=== PATIENT | female | born 1955 | race Caucasian/White ===

== ENCOUNTER 2018-05-14 15:51 | Inpatient (IN) | payer MEDICARE, OTHER ==
[2018-05-14] MEDS ORDERED: predniSONE 20 MG Tab PO STA (16:09)
[2018-05-14] MEDS ORDERED: Albuterol/Ipratropium 3.0-0.5 MG/3 ML Neb Soln NEB ONE (16:09)
--- NOTE | 2018-05-14 16:14 | EDM.PDOC ---
ED HPI GENERAL MEDICAL PROBLEM - General Chief Complaint: Respiratory Problem Stated Complaint: [facility] Time Seen by Provider: 05/14/18 15:51 Source of Information: Reports: Patient, RN History Limitations: Reports: No Limitations - History of Present Illness INITIAL COMMENTS - FREE TEXT/NARRATIVE: The patient states that she developed shortness of breath, particularly with exertion, this morning. She denies an associated cough or wheezing. No recent fever. No recent chest pain or palpitations, and no recent lower extremity edema. I'm told that EMS gave the patient a neb treatment. Here in the ED, the patient' s BP is found to be elevated at 178/131, with a HR of 131, and oxygen saturation of 84% on room air, up to 93% on 1.5 L per NC. The patient states that she has had similar symptoms many times in the past, but that she has not required medical treatment for it. She states that she has a history of COPD, and that she used to be under the care of a [employer], but she stopped seeing him 2 or 3 years ago, and has not received any pulmonary medications up until about one month ago, when her PCP started her on Anoro and albuterol by [facility]. The patient states that she is also on Chantix to try to quit smoking. The patient is not on home supplemental oxygen. The patient's PCP is Mel Haynes. The patient believes that her vaccinations are up-to-date, and she thinks that she received an influenza vaccine this season. - Related Data Allergies Allergy/AdvReac Type Severity Reaction Status Date / Time codeine Allergy Nausea Verified 06/11/15 11:24 Home Meds: Home Meds Acetaminophen [Tylenol Extra Strength] 500 mg PO Q6H PRN 06/11/15 [History] Hydrocodone/Acetaminophen [[place] 5-325 Tablet] 1 each PO Q6H PRN 06/11/15 [ History] Losartan [Cozaar] 50 mg PO DAILY 05/14/18 [History] Umeclidinium Brm/Vilanterol Tr [Anoro Ellipta 62.5-25 MCG] 1 inh PO DAILY [History] Varenicline Tartrate [Chantix] 1 mg PO BID 05/14/18 [History] Past Medical History Cardiovascular History: Reports: Hypertension Respiratory History: Reports: COPD (advanced) - Past Surgical History HEENT Surgical History: Reports: Naso-Sinus Surgery (turbinate surgery), Tonsillectomy Social & Family History - Tobacco Use Smoking Status *Q: Current Every Day Smoker Years of Tobacco use: 44 Packs/Tins Daily: 0.1 Packs/Tins Daily Comment: Down from 1.5 ppd - Alcohol Use Alcohol Use History: No - Recreational Drug Use Recreational Drug Use: No - Living Situation & Occupation Living situation: Reports: , with Spouse Occupation: Unemployed ED ROS GENERAL - Review of Systems Review Of Systems: ROS reveals no pertinent complaints other than HPI. ED EXAM, GENERAL - Physical Exam Exam: See Below Exam Limited By: No Limitations General Appearance: Alert, WD/WN, No Apparent Distress, Other (Tremulous) Eye Exam: Bilateral Eye: EOMI, Normal Inspection Ears: Normal External Exam, Hearing Grossly Normal Nose: Normal Inspection Throat/Mouth: Normal Inspection, Normal Lips, Normal Voice, No Airway Compromise Head: Atraumatic, Normocephalic Neck: Normal Inspection, Full Range of Motion Respiratory/Chest: No Respiratory Distress, No Accessory Muscle Use, Decreased Breath Sounds, Prolonged Expiration. No: Crackles, Rhonchi, Wheezing, Accessory Muscle Use Cardiovascular: Normal Peripheral Pulses, No Edema, No Gallop, No JVD, No Murmur , No Rub, Tachycardia (regular) Peripheral Pulses: 4+: Radial (L), Radial (R) GI/Abdominal: Normal Bowel Sounds, Soft, Non-Tender, No Organomegaly, No Distention, No Abnormal Bruit, No Mass (Female) Exam: Deferred Rectal (Female) Exam: Deferred Back Exam: Normal Inspection, Full Range of Motion, NT Extremities: Normal Inspection, Normal Range of Motion, No Pedal Edema, Normal Capillary Refill Neurological: Alert, Oriented, Normal Cognition, No Motor/Sensory Deficits Psychiatric: Normal Affect Skin Exam: Warm, Dry, Intact, Normal Color, No Rash EKG INTERPRETATION EKG Date: 05/14/18 Time: 16:47 Rhythm: Other (Sinus tachycardia with single PVC) Rate (Beats/Min): 118 [place]: Normal P-Wave: Enlarged (Biatrial) QRS: Normal ST-T: Normal QT: Normal Comparison: NA - No Prior EKG Course - Vital Signs Last Recorded V/S: Last Vital Signs Temp 36.7 C 03/18/19 15:57 Pulse 131 H 05/14/18 15:57 Resp 26 H 05/14/18 15:57 BP 178/131 H 05/14/18 15:57 Pulse Ox 91 L 05/14/18 17:42 - Orders/Labs/Meds Orders: Active Orders 24 hr Category Date Time Status EKG Documentation Completion [RC] STAT Care 05/14/18 16:05 Active RT Aerosol Therapy [RC] ASDIRECTED Care 05/14/18 16:09 Active RT Aerosol Therapy [RC] ASDIRECTED Care 05/14/18 17:42 Active RT Aerosol Therapy [RC] ASDIRECTED Care 05/14/18 18:16 Ordered Labs: Laboratory Tests 05/14/18 05/14/18 05/14/18 Range/Units 16:00 16:00 16:00 WBC 11.91 H (3.98-10.04) K/mm3 RBC 5.32 H (3.98-5.22) M/mm3 Hgb 15.1 (11.2-15.7) gm/L Hct 46.9 H (34.1-44.9) % MCV 88.2 (79.4-94.8) fl MCH 28.4 (25.6-32.2) pg MCHC 32.2 (32.2-35.5) g/dl RDW Std Deviation 43.3 (36.4-46.3) fL Plt Count 290 (182-369) K/mm3 MPV 8.7 L (9.4-12.3) fl Neutrophils % (Manual) 74 H (40-60) % Band Neutrophils % 1 (0-10) % Lymphocytes % (Manual) 17 L (20-40) % Atypical Lymphs % 0 % Monocytes % (Manual) 7 (2-10) % Eosinophils % (Manual) 1 (0.7-5.8) % Basophils % (Manual) 0 L (0.1-1.2) Platelet Estimate Adequate RBC Morph Comment Normal D-Dimer, Quantitative 0.29 (0.19-0.50) mg/L Puncture Site ABG pH (7.35-7.45) ABG pCO2 (35.0-45.0) mmHg ABG pO2 (80.0-100.0) mmHg ABG HCO3 (22.0-26.0) meq/L ABG O2 Saturation (96.0-97.0) % ABG Base Excess (-2-2.0) Gage Test O2 Delivery Device Oxygen Flow Rate FiO2 (21.00-100.00) % Sodium 138 (136-145) mEq/L Potassium 5.0 (3.5-5.1) mEq/L Chloride 101 (98-107) mEq/L Carbon Dioxide 30 (21-32) mEq/L Anion Gap 12.0 (5-15) BUN 18 (7-18) mg/dL Creatinine 0.7 (0.55-1.02) mg/dL Est Cr Clr Drug Dosing 90.11 mL/min Estimated GFR (MDRD) > 60 (>60) mL/min BUN/Creatinine Ratio 25.7 H (14-18) Glucose 131 H (80-115) mg/dL Calcium 9.2 (8.5-10.1) mg/dL Total Bilirubin 0.2 (0.2-1.0) mg/dL AST 18 (15-37) U/L ALT 28 (14-59) U/L Alkaline Phosphatase 92 (46-116) U/L Troponin I < 0.017 (0.00-0.056) ng/mL Total Protein 7.9 (6.4-8.2) g/dl Albumin 3.9 (3.4-5.0) g/dl Globulin 4.0 gm/dL Albumin/Globulin Ratio 1.0 (1-2) 05/14/ Range/Units 16:05 WBC (3.98-10.04) K/mm3 RBC (3.98-5.22) M/mm3 Hgb (11.2-15.7) gm/L Hct (34.1-44.9) % MCV (79.4-94.8) fl MCH (25.6-32.2) pg MCHC (32.2-35.5) g/dl RDW Std Deviation (36.4-46.3) fL Plt Count (182-369) K/mm3 MPV (9.4-12.3) fl Neutrophils % (Manual) (40-60) % Band Neutrophils % (0-10) % Lymphocytes % (Manual) (20-40) % Atypical Lymphs % % Monocytes % (Manual) (2-10) % Eosinophils % (Manual) (0.7-5.8) % Basophils % (Manual) (0.1-1.2) Platelet Estimate RBC Morph Comment D-Dimer, Quantitative (0.19-0.50) mg/L Puncture Site Rt radial ABG pH 7.31 L (7.35-7.45) ABG pCO2 62.0 H (35.0-45.0) mmHg ABG pO2 62.0 L (80.0-100.0) mmHg ABG HCO3 29.9 H (22.0-26.0) meq/L ABG O2 Saturation 86.0 L (96.0-97.0) % ABG Base Excess 2.3 H (-2-2.0) Gage Test Positive O2 Delivery Device Nasal cannula Oxygen Flow Rate 1.5 FiO2 0.00 L (21.00-100.00) % Sodium (136-145) mEq/L Potassium (3.5-5.1) mEq/L Chloride (98-107) mEq/L Carbon Dioxide (21-32) mEq/L Anion Gap (5-15) BUN (7-18) mg/dL Creatinine (0.55-1.02) mg/dL Est Cr Clr Drug Dosing mL/min Estimated GFR (MDRD) (>60) mL/min BUN/Creatinine Ratio (14-18) Glucose (80-115) mg/dL Calcium (8.5-10.1) mg/dL Total Bilirubin (0.2-1.0) mg/dL AST (15-37) U/L ALT (14-59) U/L Alkaline Phosphatase (46-116) U/L Troponin I (0.00-0.056) ng/mL Total Protein (6.4-8.2) g/dl Albumin (3.4-5.0) g/dl Globulin gm/dL Albumin/Globulin Ratio (1-2) Meds: Medications Discontinued Medications Generic Name Dose Route Start Last Admin Trade Name Freq PRN Reason Stop Dose Admin Albuterol 2.5 mg 05/14/18 17:42 05/14/18 17:48 Proventil Neb Soln NEB 05/14/18 17:43 2.5 mg ONETIME ONE Administration Albuterol 2.5 mg 05/14/18 18:16 Proventil Neb Soln NEB 05/14/18 18:17 ONETIME ONE Albuterol/Ipratropium 3 ml 05/14/18 16:09 05/14/18 16:43 Duoneb 3.0-0.5 Mg/3 Ml NEB 05/14/18 16:10 3 ml ONETIME ONE Administration Prednisone 60 mg 05/14/18 16:09 05/14/18 17:20 Prednisone PO 05/14/18 16:10 60 mg ONETIME STA Administration - Re-Assessments/Exams Free Text/Narrative Re-Assessment/Exam: 05/14/18 16:08 The patient is likely suffering from a COPD exacerbation, and her tachycardia is likely related to the neb treatment that she received per EMS, however, want to be certain that the patient does not have pneumonia or a PE. I have ordered a workup. In the meantime, the patient will receive a DuoNeb and oral prednisone. 05/14/18 16:28 2-view chest radiograph reviewed. The cardiac silhouette is within normal limits. No pulmonary vascular congestion. No pleural effusions. No focal infiltrate. No pneumothorax. There is hyperinflation and bilateral diaphragmatic flattening, consistent with COPD. Formal read per the Radiologist pending. 05/14/18 17:28 The patient's ABG reveals an acute on chronic respiratory acidosis, with hypoxemia. This strongly supports the diagnosis of a COPD exacerbation. 05/14/18 17:33 The patient was reexamined. Her lungs sound somewhat better, although she still has very distant breath sounds. She states that she feels fairly well while seated on the gurney, but she does not know how well she will do if she exerts herself. I have therefore asked the nurse to ambulate the patient a short distance, to see how well the patient does. 05/14/18 17:41 The patient's oxygen saturation was 91% on room air, however, it dropped to 78% with short distance ambulation. I will order an albuterol neb, however, if the patient does not have substantial improvement soon, she will need admission to the hospital. 05/14/18 18:10 I reexamined the patient. She is moving air better than she was, however, when I turned her supplemental oxygen off her oxygen saturation dropped to 88% on room air. I will order a repeat albuterol neb, but the patient will need to be admitted. Paging Dr. Go. 05/14/18 18:[address] Go at 18:12. He agreed to admit the patient. Departure - Departure Time of Disposition: 18:15 Disposition: Admitted As Inpatient 66 Condition: Fair Clinical Impression: COPD exacerbation, Hypoxemia - Discharge Information *PRESCRIPTION DRUG MONITORING PROGRAM REVIEWED*: Not Applicable *COPY OF PRESCRIPTION DRUG MONITORING REPORT IN PATIENT MICHELLE: Not Applicable Referrals: Mel Haynes MD [Primary Care Provider] - - My Orders Last 24 Hours: My Active Orders 05/14/18 16:05 EKG Documentation Completion [RC] STAT 05/14/18 16:09 RT Aerosol Therapy [RC] ASDIRECTED 05/14/18 17:42 RT Aerosol Therapy [RC] ASDIRECTED 05/14/18 18:16 RT Aerosol Therapy [RC] ASDIRECTED - Assessment/Plan Last 24 Hours: My Active Orders 05/14/18 16:05 EKG Documentation Completion [RC] STAT 05/14/18 16:09 RT Aerosol Therapy [RC] ASDIRECTED 05/14/18 17:42 RT Aerosol Therapy [RC] ASDIRECTED 05/14/18 18:16 RT Aerosol Therapy [RC] ASDIRECTED
--- NOTE | 2018-05-14 16:41 | CR ---
Chest: Two views of the chest were obtained. Comparison: Prior chest x-ray of . Lungs are hyperinflated compatible with emphysematous change. Lungs show no acute parenchymal change. Heart size and mediastinum are normal. Bony structures are within normal limits for the patient's age. Impression: 1. Emphysematous change. Nothing acute is appreciated on two-view chest x-ray. Diagnostic code #2
[2018-05-14] MEDS ORDERED: Albuterol 0.083% 2.5 MG/3 ML Neb Soln NEB ONE ×2 (17:42→18:16)
[2018-05-14] MEDS ORDERED: Acetaminophen 325 MG Tab PO PRN (20:43)
[2018-05-14] MEDS ORDERED: Bisacodyl 5 MG Tab PO PRN (20:43)
[2018-05-14] MEDS ORDERED: Docusate Sodium 100 MG Cap PO PRN (20:43)
[2018-05-14] MEDS ORDERED: Ondansetron 4 MG Tab.DIS PO PRN (20:43)
[2018-05-14] MEDS ORDERED: Albuterol 0.083% 2.5 MG/3 ML Neb Soln NEB PRN (20:50)
--- NOTE | 2018-05-14 20:59 | PCM.HP ---
H&P History of Present Illness - General Date of Service: 05/14/18 Admit Problem/Dx: Admission Diagnosis/Problem Admission Diagnosis/Problem COPD exacerbation - History of Present Illness Initial Comments - Free Text/Narative: This 62-year-old female with known COPD and emphysema presented to the emergency room via ambulance after developing worsening breathing, dyspnea on exertion, and shortness of breath. She states that about mid morning she started developing worsening breathing and noticed that she was having more difficulty walking. As the day progressed her symptoms worsened and patient became concerned and called her . They agree that she would call EMS and when patient was seen by the EMS her pulse ox was in the low to mid 80s. In the emergency room initial pulse ox was 84% and she was given albuterol and prednisone. On one and a half liters of FiO2 via nasal cannula her pulse ox increased to 91%, but she still dropped into the 80s with ambulation. Without oxygen her pulse ox drops into the 70s and her pulse increasing to the 120s. Patient denies any chest pain, palpitations, has a mild headache, weight loss, lower extremity swelling. She has had a 9 pound weight gain over the last 6 months. She started Chantix 3 months ago and she has been eating more since then. She is on triple therapy for her COPD and does have a nebulizer at home. In the emergency room patient had a d-dimer that was negative. Chest x-ray showed no acute infiltrate with emphysematous changes. Patient maintained tachycardia in the emergency room and it was felt it was secondary to albuterol and increased effort when she ambulated off oxygen. - Related Data Allergies/Adverse Reactions: Allergies Allergy/AdvReac Type Severity Reaction Status Date / Time codeine Allergy Nausea Verified 05/14/18 19:14 Home Medications: Home Meds Acetaminophen [Tylenol Extra Strength] 500 mg PO Q6H PRN 06/11/15 [History] Hydrocodone/Acetaminophen [[place] 5-325 Tablet] 1 each PO Q6H PRN 06/11/15 [ History] Losartan [Cozaar] 50 mg PO DAILY 05/14/18 [History] Umeclidinium Brm/Vilanterol Tr [Anoro Ellipta 62.5-25 MCG] 1 inh PO DAILY [History] Varenicline Tartrate [Chantix] 1 mg PO BID 05/14/18 [History] Past Medical History Cardiovascular History: Reports: Hypertension Respiratory History: Reports: COPD (advanced) - Past Surgical History HEENT Surgical History: Reports: Naso-Sinus Surgery (turbinate surgery), Tonsillectomy Social & Family History - Tobacco Use Smoking Status *Q: Current Every Day Smoker Years of Tobacco use: 44 Packs/Tins Daily: 0.1 Second Hand Smoke Exposure: Yes - Caffeine Use Caffeine Use: Reports: Coffee - Recreational Drug Use Recreational Drug Use: No - Living Situation & Occupation Living situation: Reports: , with Spouse Occupation: Unemployed H&P Review of Systems - Review of Systems: Review Of Systems: See Below General: Reports: Fatigue. Denies: Night Sweats, Diaphoresis HEENT: Reports: No Symptoms Pulmonary: Reports: Shortness of Breath, Cough Cardiovascular: Reports: Dyspnea on Exertion. Denies: Orthopnea, PND, Edema Gastrointestinal: Reports: No Symptoms. Denies: Abdominal Pain, Black Stool, Bloody Stool Genitourinary: Reports: No Symptoms Musculoskeletal: Reports: No Symptoms Skin: Reports: No Symptoms Psychiatric: Reports: No Symptoms. Denies: Confusion, Depression Neurological: Reports: Headache. Denies: Confusion, Dizziness Exam - Exam Exam: See Below - Vital Signs Vital Signs: Last Vital Signs Temp 98.1 F 05/14/18 15:57 Pulse 131 H 05/14/18 15:57 Resp 26 H 05/14/18 15:57 BP 178/131 H 05/14/18 15:57 Pulse Ox 94 L 05/14/18 18:16 Weight: 1563 lb - Exam Quality Assessment: Supplemental Oxygen General: Alert, Oriented, Mild Distress HEENT: Conjunctiva Clear, Mucosa Moist & [place], Posterior Pharynx Clear Neck: Supple, Trachea Midline Lungs: Decreased Breath Sounds Cardiovascular: Regular Rhythm, Tachycardia GI/Abdominal Exam: Normal Bowel Sounds, Soft, Non-Tender, No Organomegaly, No Distention, No Abnormal Bruit Extremities: Normal Inspection, Normal Range of Motion, No Pedal Edema, Normal Capillary Refill Peripheral Pulses: 2+: Posterior Tibial (L), Posterior Tibial (R), Dorsalis Pedis (L), Dorsalis Pedis (R) Skin: Warm, Dry, Intact Neurological: Cranial Nerves Intact Neuro Extensive - Mental Status: Alert, Oriented x3, Normal Mood/Affect, Normal Cognition, Memory Intact Neuro Extensive - Motor, Sensory, Reflexes: Normal Gait Psychiatric: Alert, Normal Affect, Normal Mood - Patient Data Lab Results Last 24 hrs: Laboratory Results - last 24 hr 05/14/18 05/14/18 05/14/18 Range/Units 16:00 16:00 16:00 WBC 11.91 H (3.98-10.04) K/mm3 RBC 5.32 H (3.98-5.22) M/mm3 Hgb 15.1 (11.2-15.7) gm/L Hct 46.9 H (34.1-44.9) % MCV 88.2 (79.4-94.8) fl MCH 28.4 (25.6-32.2) pg MCHC 32.2 (32.2-35.5) g/dl RDW Std Deviation 43.3 (36.4-46.3) fL Plt Count 290 (182-369) K/mm3 MPV 8.7 L (9.4-12.3) fl Neutrophils % (Manual) 74 H (40-60) % Band Neutrophils % 1 (0-10) % Lymphocytes % (Manual) 17 L (20-40) % Atypical Lymphs % 0 % Monocytes % (Manual) 7 (2-10) % Eosinophils % (Manual) 1 (0.7-5.8) % Basophils % (Manual) 0 L (0.1-1.2) Platelet Estimate Adequate RBC Morph Comment Normal D-Dimer, Quantitative 0.29 (0.19-0.50) mg/L Puncture Site ABG pH (7.35-7.45) ABG pCO2 (35.0-45.0) mmHg ABG pO2 (80.0-100.0) mmHg ABG HCO3 (22.0-26.0) meq/L ABG O2 Saturation (96.0-97.0) % ABG Base Excess (-2-2.0) Gage Test O2 Delivery Device Oxygen Flow Rate FiO2 (21.00-100.00) % Sodium 138 (136-145) mEq/L Potassium 5.0 (3.5-5.1) mEq/L Chloride 101 (98-107) mEq/L Carbon Dioxide 30 (21-32) mEq/L Anion Gap 12.0 (5-15) BUN 18 (7-18) mg/dL Creatinine 0.7 (0.55-1.02) mg/dL Est Cr Clr Drug Dosing 90.11 mL/min Estimated GFR (MDRD) > 60 (>60) mL/min BUN/Creatinine Ratio 25.7 H (14-18) Glucose 131 H (80-115) mg/dL Calcium 9.2 (8.5-10.1) mg/dL Total Bilirubin 0.2 (0.2-1.0) mg/dL AST 18 (15-37) U/L ALT 28 (14-59) U/L Alkaline Phosphatase 92 (46-116) U/L Troponin I < 0.017 (0.00-0.056) ng/mL Total Protein 7.9 (6.4-8.2) g/dl Albumin 3.9 (3.4-5.0) g/dl Globulin 4.0 gm/dL Albumin/Globulin Ratio 1.0 (1-2) /18/19 Range/Units 16:05 WBC (3.98-10.04) K/mm3 RBC (3.98-5.22) M/mm3 Hgb (11.2-15.7) gm/L Hct (34.1-44.9) % MCV (79.4-94.8) fl MCH (25.6-32.2) pg MCHC (32.2-35.5) g/dl RDW Std Deviation (36.4-46.3) fL Plt Count (182-369) K/mm3 MPV (9.4-12.3) fl Neutrophils % (Manual) (40-60) % Band Neutrophils % (0-10) % Lymphocytes % (Manual) (20-40) % Atypical Lymphs % % Monocytes % (Manual) (2-10) % Eosinophils % (Manual) (0.7-5.8) % Basophils % (Manual) (0.1-1.2) Platelet Estimate RBC Morph Comment D-Dimer, Quantitative (0.19-0.50) mg/L Puncture Site Rt radial ABG pH 7.31 L (7.35-7.45) ABG pCO2 62.0 H (35.0-45.0) mmHg ABG pO2 62.0 L (80.0-100.0) mmHg ABG HCO3 29.9 H (22.0-26.0) meq/L ABG O2 Saturation 86.0 L (96.0-97.0) % ABG Base Excess 2.3 H (-2-2.0) Gage Test Positive O2 Delivery Device Nasal cannula Oxygen Flow Rate 1.5 FiO2 0.00 L (21.00-100.00) % Sodium (136-145) mEq/L Potassium (3.5-5.1) mEq/L Chloride (98-107) mEq/L Carbon Dioxide (21-32) mEq/L Anion Gap (5-15) BUN (7-18) mg/dL Creatinine (0.55-1.02) mg/dL Est Cr Clr Drug Dosing mL/min Estimated GFR (MDRD) (>60) mL/min BUN/Creatinine Ratio (14-18) Glucose (80-115) mg/dL Calcium (8.5-10.1) mg/dL Total Bilirubin (0.2-1.0) mg/dL AST (15-37) U/L ALT (14-59) U/L Alkaline Phosphatase (46-116) U/L Troponin I (0.00-0.056) ng/mL Total Protein (6.4-8.2) g/dl Albumin (3.4-5.0) g/dl Globulin gm/dL Albumin/Globulin Ratio (1-2) Result Diagrams: 05/14/18 16:00 05/14/18 16:00 EKG INTERPRETATION EKG Date: 05/14/18 Rhythm: NSR Rate (Beats/Min): 118 (Sinus tachycardia) [place]: Normal P-Wave: Enlarged (Biatrial) Comparison: NA - No Prior EKG - Problem List (1) HTN (hypertension) SNOMED Code(s): 46382510 ICD Code: I10 - ESSENTIAL (PRIMARY) HYPERTENSION Status: Acute Current Visit: Yes (2) Tachycardia SNOMED Code(s): 0975397 ICD Code: R00.0 - TACHYCARDIA, UNSPECIFIED Status: Acute Current Visit: Yes (3) COPD exacerbation SNOMED Code(s): 050776080 ICD Code: J44.1 - CHRONIC OBSTRUCTIVE PULMONARY DISEASE W (ACUTE) EXACERBATION Status: Acute Current Visit: Yes (4) Hypoxemia SNOMED Code(s): 099470813 ICD Code: R09.02 - HYPOXEMIA Status: Acute Current Visit: Yes Problem List Initiated/Reviewed/Updated: Yes Orders Last 24hrs: Active Orders 24 hr Category Date Time Status Patient Status [ADT] Routine ADT 05/14/18 20:43 Ordered Bedrest Bathroom Privileges [RC] ASDIRECTED Care 05/14/18 20:43 Ordered EKG Documentation Completion [RC] STAT Care 05/14/18 16:05 Active Height and Weight [RC] DAILY Care 05/14/18 20:43 Ordered Intake and Output [RC] QSHIFT Care 05/14/18 20:45 Ordered Oxygen Therapy [RC] PRN Care 05/14/18 20:43 Ordered Pulse Oximetry [RC] CONTINUOUS Care 05/14/18 20:43 Ordered RT Aerosol Therapy [RC] ASDIRECTED Care 05/14/18 16:09 Active RT Aerosol Therapy [RC] ASDIRECTED Care 05/14/18 17:42 Active RT Aerosol Therapy [RC] ASDIRECTED Care 05/14/18 18:16 Active RT Aerosol Therapy [RC] ASDIRECTED Care 05/14/18 20:50 Ordered VTE/DVT Education [RC] PER UNIT ROUTINE Care 05/14/18 20:43 Ordered Vital Signs [RC] Q4H Care 05/14/18 20:43 Ordered Respiratory Care Assess and Treatment [CONS] Routine Cons 05/14/18 20:43 Ordered Regular Diet [DIET] Diet 05/15/18 Breakfast Ordered C-REACTIVE PROTEIN [CHEM] AM Lab 05/15/18 05:11 Ordered CBC WITH AUTO DIFF [HEME] AM Lab 05/15/18 05:11 Ordered COMPREHENSIVE METABOLIC PN,CMP [CHEM] AM Lab 05/15/18 05:11 Ordered CULTURE BLOOD [BC] Stat Lab 05/14/18 20:48 Ordered CULTURE BLOOD [BC] Stat Lab 05/14/18 20:48 Ordered CULTURE SPUTUM + SMEAR [RM] Stat Lab 05/14/18 20:43 Ordered MAGNESIUM [CHEM] AM Lab 05/15/18 05:11 Ordered Acetaminophen [Tylenol] Med 05/14/18 20:43 Ordered 650 mg PO Q4H PRN Albuterol [Proventil Neb Soln] Med 05/14/18 20:50 Ordered 2.5 mg NEB Q2H PRN Albuterol/Ipratropium [DuoNeb 3.0-0.5 MG/3 ML] Med 05/14/18 21:00 Ordered 3 ml NEB Q6HRRT Bisacodyl [Dulcolax] Med 05/14/18 20:43 Ordered 5 mg PO DAILY PRN Docusate Sodium [Colace] Med 05/14/18 20:43 Ordered 100 mg PO BID PRN Enoxaparin [Lovenox] Med 05/15/18 09:00 Ordered 40 mg SUBCUT DAILY Losartan Med 05/15/18 09:00 Ordered 50 mg PO DAILY Ondansetron [Zofran ODT] Med 05/14/18 20:43 Ordered 4 mg PO Q6H PRN Sodium Chloride 0.9% @ 125 MLS/HR (1000ml) Med 05/14/18 20:45 Ordered Sodium Chloride 0.9% [Normal Saline] 1,000 ml IV ASDIRECTED Varenicline Tartrate [Chantix] Med 05/14/18 21:00 Ordered 1 mg PO BID cefTRIAXone [Rocephin] Med 05/14/18 21:00 Ordered 1 gm IVPUSH Q24H predniSONE Med 05/15/18 16:00 Ordered 40 mg PO WITHBREAKFAST Blood Culture x2 Reflex Set [OM.PC] Stat Oth 05/14/18 20:43 Ordered Resuscitation Status Routine Resus Stat 05/14/18 20:43 Ordered Medication Orders Acetaminophen (Tylenol) 650 mg PO Q4H PRN PRN Reason: Pain (Mild 1-3)/fever Albuterol (Proventil Neb Soln) 2.5 mg NEB Q2H PRN PRN Reason: Dyspnea Albuterol/Ipratropium (Duoneb 3.0-0.5 Mg/3 Ml) 3 ml NEB Q6HRRT [place] Bisacodyl (Dulcolax) 5 mg PO DAILY PRN PRN Reason: Constipation Ceftriaxone Sodium (Rocephin) 1 gm IVPUSH Q24H [place] Docusate Sodium (Colace) 100 mg PO BID PRN PRN Reason: Constipation Enoxaparin Sodium (Lovenox) 40 mg SUBCUT DAILY [place] Sodium Chloride (Normal Saline) 1,000 mls @ 125 mls/hr IV ASDIRECTED [facility] Non-Formulary Medication (Varenicline Tartrate [Chantix]) 1 mg PO BID [facility] Non-Formulary Medication (Losartan) 50 mg PO DAILY [place] Ondansetron HCl (Zofran Odt) 4 mg PO Q6H PRN PRN Reason: nausea, able to take PO Prednisone (Prednisone) 40 mg PO WITHBREAKFAST [facility] Assessment/Plan Comment:: COPD exacerbation with hypoxia - The patient in patient's status. - Start albuterol/ipratropium bromide 4 times a day. - Albuterol nebs every 2 hours when necessary. - Continue oral prednisone 40 mg daily. - Titrate FiO2 to keep pulse ox above 92% - ABG is consistent with acute on chronic respiratory acidosis with partial compensation - Rocephin 1 g daily. - Blood cultures and sputum cultures. Tachycardia - Likely secondary to demand and albuterol. - Monitor on telemetry. Hypertension - Restart home meds in a.m. VTE prophylaxis with Lovenox
[2018-05-14] MEDS ORDERED: cefTRIAXone 2 GM Vial IVPUSH SCH (21:00)
[2018-05-14] MEDS: Albuterol/Ipratropium 3.0-0.5 MG/3 ML Neb Soln NEB SCH (21:59)
[2018-05-14] MEDS: Sodium Chloride 0.9% 1,000 ML IV SCH (22:15)
[2018-05-14] MEDS: cefTRIAXone 1 GM in Sodium Chloride 0.9% 100 ML IV SCH (22:16)
[2018-05-14] MEDS ORDERED: Metoprolol Tartrate 5 MG/5 ML SDV IVPUSH PRN (23:35)
[2018-05-15] MEDS: Albuterol/Ipratropium 3.0-0.5 MG/3 ML Neb Soln NEB SCH ×4 (03:19→20:59)
[2018-05-15] MEDS ORDERED: Benzocaine/Cetylpyridinium/Menthol Lozenge MUCMEM PRN (03:57)
[2018-05-15] MEDS: Sodium Chloride 0.9% 1,000 ML IV SCH (06:02)
[2018-05-15] MEDS ORDERED: Magnesium Sulfate/Water 4 GM in Premix Bag 1 BAG IV ONE (08:52)
[2018-05-15] MEDS ORDERED: Sodium Chloride 0.9% 10 ML Syringe FLUSH PRN (08:52)
[2018-05-15] MEDS ORDERED: Losartan 25 MG Tab PO SCH (09:00)
[2018-05-15] MEDS: Enoxaparin 40 MG/0.4 ML Syringe SUBCUT SCH (09:31)
[2018-05-15] MEDS: Aspirin 81 MG Tab.Chew PO SCH (09:31)
[2018-05-15] MEDS: Varenicline Tartrate [Chantix] 1 MG PO SCH ×3 (09:49→21:14)
[2018-05-15] MEDS: Losartan 25 MG Tab PO SCH (10:25)
[2018-05-15] MEDS ORDERED: Benzonatate 100 MG Cap PO PRN (14:08)
--- NOTE | 2018-05-15 14:18 | PCM.PN ---
- General Info Date of Service: 05/15/18 Admission Dx/Problem (Free Text): Admission Diagnosis/Problem Admission Diagnosis/Problem COPD exacerbation Subjective Update: Patient states that she is feeling much better than she was when she came in. She is less short of breath. Patient does state that she has had episodes of palpitations in the past. Nurse reports 2 runs of V. tach today one being 6 beats. Patient denies any previous syncopal episodes or dizziness. She was afebrile overnight. - Review of Systems General: Reports: No Symptoms HEENT: Reports: No Symptoms Pulmonary: Reports: Shortness of Breath, Cough Cardiovascular: Reports: No Symptoms Gastrointestinal: Reports: No Symptoms. Denies: Abdominal Pain Genitourinary: Reports: No Symptoms Neurological: Reports: No Symptoms Psychiatric: Reports: No Symptoms - Patient Data Vitals - Most Recent: Last Vital Signs Temp 99.1 F 05/15/18 13:54 Pulse 89 05/15/18 13:50 Resp 18 05/15/18 13:50 BP 159/83 H 05/15/18 13:54 Pulse Ox 98 05/15/18 13:50 Weight - Most Recent: 153 lb 1.6 oz I&O - Last 24 Hours: Intake & Output 05/14/18 05/15/18 05/15/18 22:59 06:59 14:59 Intake Total 1769 180 Output Total 700 Balance 1069 180 Lab Results Last 24 Hours: Laboratory Results - last 24 hr 05/14/18 05/14/18 05/14/18 Range/Units 16:00 16:00 16:00 WBC 11.91 H (3.98-10.04) K/mm3 RBC 5.32 H (3.98-5.22) M/mm3 Hgb 15.1 (11.2-15.7) gm/L Hct 46.9 H (34.1-44.9) % MCV 88.2 (79.4-94.8) fl MCH 28.4 (25.6-32.2) pg MCHC 32.2 (32.2-35.5) g/dl RDW Std Deviation 43.3 (36.4-46.3) fL Plt Count 290 (182-369) K/mm3 MPV 8.7 L (9.4-12.3) fl Neut % (Auto) (34.0-71.1) % Lymph % (Auto) (19.3-51.7) % Mcleod % (Auto) (4.7-12.5) % Eos % (Auto) (0.7-5.8) Baso % (Auto) (0.1-1.2) % Neut # (Auto) (1.56-6.13) K/mm3 Lymph # (Auto) (1.18-3.74) K/mm3 Mcleod # (Auto) (0.24-0.36) K/mm3 Eos # (Auto) (0.04-0.36) K/mm3 Baso # (Auto) (0.01-0.08) K/mm3 Neutrophils % (Manual) 74 H (40-60) % Band Neutrophils % 1 (0-10) % Lymphocytes % (Manual) 17 L (20-40) % Atypical Lymphs % 0 % Monocytes % (Manual) 7 (2-10) % Eosinophils % (Manual) 1 (0.7-5.8) % Basophils % (Manual) 0 L (0.1-1.2) Manual Slide Review Platelet Estimate Adequate RBC Morph Comment Normal D-Dimer, Quantitative 0.29 (0.19-0.50) mg/L Puncture Site ABG pH (7.35-7.45) ABG pCO2 (35.0-45.0) mmHg ABG pO2 (80.0-100.0) mmHg ABG HCO3 (22.0-26.0) meq/L ABG O2 Saturation (96.0-97.0) % ABG Base Excess (-2-2.0) Gage Test O2 Delivery Device Oxygen Flow Rate FiO2 (21.00-100.00) % Sodium 138 (136-145) mEq/L Potassium 5.0 (3.5-5.1) mEq/L Chloride 101 (98-107) mEq/L Carbon Dioxide 30 (21-32) mEq/L Anion Gap 12.0 (5-15) BUN 18 (7-18) mg/dL Creatinine 0.7 (0.55-1.02) mg/dL Est Cr Clr Drug Dosing 90.11 mL/min Estimated GFR (MDRD) > 60 (>60) mL/min BUN/Creatinine Ratio 25.7 H (14-18) Glucose 131 H (80-115) mg/dL Calcium 9.2 (8.5-10.1) mg/dL Phosphorus (2.6-4.7) mg/dL Magnesium (1.8-2.4) mg/dl Total Bilirubin 0.2 (0.2-1.0) mg/dL AST 18 (15-37) U/L ALT 28 (14-59) U/L Alkaline Phosphatase 92 (46-116) U/L Troponin I < 0.017 (0.00-0.056) ng/mL C-Reactive Protein (<1.0) mg/dL Total Protein 7.9 (6.4-8.2) g/dl Albumin 3.9 (3.4-5.0) g/dl Globulin 4.0 gm/dL Albumin/Globulin Ratio 1.0 (1-2) Free T4 (0.76-1.46) ng/dL TSH 3rd Generation (0.358-3.74) uIU/mL 05/14/18 05/15/18 05/15/18 Range/Units 16:05 04:50 04:50 WBC 11.03 H (3.98-10.04) K/mm3 RBC 4.93 (3.98-5.22) M/mm3 Hgb 14.1 (11.2-15.7) gm/L Hct 43.3 (34.1-44.9) % MCV 87.8 (79.4-94.8) fl MCH 28.6 (25.6-32.2) pg MCHC 32.6 (32.2-35.5) g/dl RDW Std Deviation 43.7 (36.4-46.3) fL Plt Count 271 (182-369) K/mm3 MPV 8.9 L (9.4-12.3) fl Neut % (Auto) 84.6 H (34.0-71.1) % Lymph % (Auto) 9.2 L (19.3-51.7) % Mcleod % (Auto) 5.8 (4.7-12.5) % Eos % (Auto) 0 L (0.7-5.8) Baso % (Auto) 0.3 (0.1-1.2) % Neut # (Auto) 9.34 H (1.56-6.13) K/mm3 Lymph # (Auto) 1.01 L (1.18-3.74) K/mm3 Mcleod # (Auto) 0.64 H (0.24-0.36) K/mm3 Eos # (Auto) 0.00 L (0.04-0.36) K/mm3 Baso # (Auto) 0.03 (0.01-0.08) K/mm3 Neutrophils % (Manual) (40-60) % Band Neutrophils % (0-10) % Lymphocytes % (Manual) (20-40) % Atypical Lymphs % % Monocytes % (Manual) (2-10) % Eosinophils % (Manual) (0.7-5.8) % Basophils % (Manual) (0.1-1.2) Manual Slide Review Normal smear Platelet Estimate RBC Morph Comment D-Dimer, Quantitative (0.19-0.50) mg/L Puncture Site Rt radial ABG pH 7.31 L (7.35-7.45) ABG pCO2 62.0 H (35.0-45.0) mmHg ABG pO2 62.0 L (80.0-100.0) mmHg ABG HCO3 29.9 H (22.0-26.0) meq/L ABG O2 Saturation 86.0 L (96.0-97.0) % ABG Base Excess 2.3 H (-2-2.0) Gage Test Positive O2 Delivery Device Nasal cannula Oxygen Flow Rate 1.5 FiO2 0.00 L (21.00-100.00) % Sodium 138 (136-145) mEq/L Potassium 4.3 (3.5-5.1) mEq/L Chloride 100 (98-107) mEq/L Carbon Dioxide 30 (21-32) mEq/L Anion Gap 12.3 (5-15) BUN 12 (7-18) mg/dL Creatinine 0.7 (0.55-1.02) mg/dL Est Cr Clr Drug Dosing 90.11 mL/min Estimated GFR (MDRD) > 60 (>60) mL/min BUN/Creatinine Ratio 17.1 (14-18) Glucose 128 H (80-115) mg/dL Calcium 9.6 (8.5-10.1) mg/dL Phosphorus (2.6-4.7) mg/dL Magnesium 1.7 L (1.8-2.4) mg/dl Total Bilirubin 0.3 (0.2-1.0) mg/dL AST 16 (15-37) U/L ALT 23 (14-59) U/L Alkaline Phosphatase 65 (46-116) U/L Troponin I (0.00-0.056) ng/mL C-Reactive Protein 0.5 (<1.0) mg/dL Total Protein 7.3 (6.4-8.2) g/dl Albumin 3.6 (3.4-5.0) g/dl Globulin 3.7 gm/dL Albumin/Globulin Ratio 1.0 (1-2) Free T4 (0.76-1.46) ng/dL TSH 3rd Generation (0.358-3.74) uIU/mL 05/15/18 05/15/18 05/15/18 Range/Units 04:50 04:50 04:50 WBC (3.98-10.04) K/mm3 RBC (3.98-5.22) M/mm3 Hgb (11.2-15.7) gm/L Hct (34.1-44.9) % MCV (79.4-94.8) fl MCH (25.6-32.2) pg MCHC (32.2-35.5) g/dl RDW Std Deviation (36.4-46.3) fL Plt Count (182-369) K/mm3 MPV (9.4-12.3) fl Neut % (Auto) (34.0-71.1) % Lymph % (Auto) (19.3-51.7) % Mcleod % (Auto) (4.7-12.5) % Eos % (Auto) (0.7-5.8) Baso % (Auto) (0.1-1.2) % Neut # (Auto) (1.56-6.13) K/mm3 Lymph # (Auto) (1.18-3.74) K/mm3 Mcleod # (Auto) (0.24-0.36) K/mm3 Eos # (Auto) (0.04-0.36) K/mm3 Baso # (Auto) (0.01-0.08) K/mm3 Neutrophils % (Manual) (40-60) % Band Neutrophils % (0-10) % Lymphocytes % (Manual) (20-40) % Atypical Lymphs % % Monocytes % (Manual) (2-10) % Eosinophils % (Manual) (0.7-5.8) % Basophils % (Manual) (0.1-1.2) Manual Slide Review Platelet Estimate RBC Morph Comment D-Dimer, Quantitative (0.19-0.50) mg/L Puncture Site ABG pH (7.35-7.45) ABG pCO2 (35.0-45.0) mmHg ABG pO2 (80.0-100.0) mmHg ABG HCO3 (22.0-26.0) meq/L ABG O2 Saturation (96.0-97.0) % ABG Base Excess (-2-2.0) Gage Test O2 Delivery Device Oxygen Flow Rate FiO2 (21.00-100.00) % Sodium (136-145) mEq/L Potassium (3.5-5.1) mEq/L Chloride (98-107) mEq/L Carbon Dioxide (21-32) mEq/L Anion Gap (5-15) BUN (7-18) mg/dL Creatinine (0.55-1.02) mg/dL Est Cr Clr Drug Dosing mL/min Estimated GFR (MDRD) (>60) mL/min BUN/Creatinine Ratio (14-18) Glucose (80-115) mg/dL Calcium (8.5-10.1) mg/dL Phosphorus 3.9 (2.6-4.7) mg/dL Magnesium (1.8-2.4) mg/dl Total Bilirubin (0.2-1.0) mg/dL AST (15-37) U/L ALT (14-59) U/L Alkaline Phosphatase (46-116) U/L Troponin I (0.00-0.056) ng/mL C-Reactive Protein (<1.0) mg/dL Total Protein (6.4-8.2) g/dl Albumin (3.4-5.0) g/dl Globulin gm/dL Albumin/Globulin Ratio (1-2) Free T4 1.20 (0.76-1.46) ng/dL TSH 3rd Generation 0.320 L (0.358-3.74) uIU/mL [facility] Results Last 24 Hours: Microbiology 05/15/18 09:30 Gram Stain - Final Sputum - Expectorated Med Orders - Current: Current Medications Acetaminophen (Tylenol) 650 mg PO Q4H PRN PRN Reason: Pain (Mild 1-3)/fever Albuterol (Proventil Neb Soln) 2.5 mg NEB Q2H PRN PRN Reason: Dyspnea Albuterol/Ipratropium (Duoneb 3.0-0.5 Mg/3 Ml) 3 ml NEB Q6HRRT [facility] Last Admin: 05/15/18 14:05 Dose: 3 ml Aspirin (Aspirin) 81 mg PO DAILY [facility] Last Admin: 05/15/18 09:31 Dose: 81 mg Benzocaine/Menthol (Cepacol Sore Throat) 1 lozenge MUCMEM Q2HR PRN PRN Reason: Sore Throat Last Admin: 05/15/18 04:30 Dose: 1 lozenge Benzonatate (Tessalon Perles) 200 mg PO TID PRN PRN Reason: Cough Bisacodyl (Dulcolax) 5 mg PO DAILY PRN PRN Reason: Constipation Docusate Sodium (Colace) 100 mg PO BID PRN PRN Reason: Constipation Enoxaparin Sodium (Lovenox) 40 mg SUBCUT DAILY [facility] Last Admin: 05/15/18 09:31 Dose: 40 mg Guaifenesin (Mucinex) 600 mg PO BID [facility] Ceftriaxone Sodium 1 gm/ (Sodium Chloride) 100 mls @ 200 mls/hr IV Q24H [facility] Last Admin: 05/14/18 22:16 Dose: 200 mls/hr Losartan Potassium (Cozaar) 25 mg PO DAILY [facility] Last Admin: 05/15/18 10:25 Dose: 25 mg Metoprolol Tartrate (Lopressor) 5 mg IVPUSH Q4H PRN PRN Reason: Tachycardia Ondansetron HCl (Zofran Odt) 4 mg PO Q6H PRN PRN Reason: nausea, able to take PO Varenicline Tartrate ([Chantix] 1 Mg) 0 each PO BID [facility] Last Admin: 05/15/18 09:49 Dose: Not Given Prednisone (Prednisone) 40 mg PO WITHBREAKFAST [facility] Prednisone (Prednisone) 40 mg PO WITHBREAKFAST [facility] Sodium Chloride (Saline Flush) 10 ml FLUSH ASDIRECTED PRN PRN Reason: Keep Vein Open Discontinued Medications Albuterol (Proventil Neb Soln) 2.5 mg NEB ONETIME ONE Stop: 05/14/18 17:43 Last Admin: 05/14/18 17:48 Dose: 2.5 mg Albuterol (Proventil Neb Soln) 2.5 mg NEB ONETIME ONE Stop: 05/14/18 18:17 Last Admin: 05/14/18 18:50 Dose: 2.5 mg Albuterol/Ipratropium (Duoneb 3.0-0.5 Mg/3 Ml) 3 ml NEB ONETIME ONE Stop: 05/14/18 16:10 Last Admin: 05/14/18 16:43 Dose: 3 ml Ceftriaxone Sodium (Rocephin) 1 gm IVPUSH Q24H [facility] Last Admin: 05/14/18 22:36 Dose: Not Given Sodium Chloride (Normal Saline) 1,000 mls @ 125 mls/hr IV ASDIRECTED [facility] Last Admin: 05/15/18 06:02 Dose: 125 mls/hr Magnesium Sulfate 4 gm/ Premix 100 mls @ 25 mls/hr IV ONETIME ONE Stop: 05/15/18 08:53 Last Admin: 05/15/18 09:30 Dose: 25 mls/hr Losartan Potassium (Cozaar) 50 mg PO DAILY [facility] Last Admin: 05/15/18 14:02 Dose: Not Given Prednisone (Prednisone) 60 mg PO ONETIME STA Stop: 05/14/18 16:10 Last Admin: 05/14/18 17:20 Dose: 60 mg - Exam Quality Assessment: Supplemental Oxygen General: Alert, Oriented, No Acute Distress HEENT: Pupils Equal Neck: Supple Lungs: Wheezing. No: Normal Respiratory Effort Cardiovascular: Regular Rhythm, Tachycardia GI/Abdominal Exam: Normal Bowel Sounds, Soft, No Distention, No Abnormal Bruit Back Exam: Normal Inspection Extremities: Normal Inspection, No Pedal Edema - Problem List & Annotations (1) HTN (hypertension) SNOMED Code(s): 26972433 Code(s): I10 - ESSENTIAL (PRIMARY) HYPERTENSION Status: Acute Current Visit: Yes (2) Tachycardia SNOMED Code(s): 4832732 Code(s): R00.0 - TACHYCARDIA, UNSPECIFIED Status: Acute Current Visit: Yes (3) COPD exacerbation SNOMED Code(s): 787918380 Code(s): J44.1 - CHRONIC OBSTRUCTIVE PULMONARY DISEASE W (ACUTE) EXACERBATION Status: Acute Current Visit: Yes (4) Hypoxemia SNOMED Code(s): 325381356 Code(s): R09.02 - HYPOXEMIA Status: Acute Current Visit: Yes - Problem List Review Problem List Initiated/Reviewed/Updated: Yes - My Orders Last 24 Hours: My Active Orders 05/14/18 20:43 Patient Status [ADT] Routine Bedrest Bathroom Privileges [RC] ASDIRECTED Height and Weight [RC] 04 Oxygen Therapy [RC] PRN Pulse Oximetry [RC] CONTINUOUS VTE/DVT Education [RC] PER UNIT ROUTINE Vital Signs [RC] Q4HR Respiratory Care Assess and Treatment [CONS] Routine Acetaminophen [Tylenol] 650 mg PO Q4H PRN Bisacodyl [Dulcolax] 5 mg PO DAILY PRN Docusate Sodium [Colace] 100 mg PO BID PRN Ondansetron [Zofran ODT] 4 mg PO Q6H PRN Blood Culture x2 Reflex Set [OM.PC] Stat Resuscitation Status Routine 05/14/18 20:45 Intake and Output [RC] 04,16 05/14/18 20:50 RT Aerosol Therapy [RC] ASDIRECTED Albuterol [Proventil Neb Soln] 2.5 mg NEB Q2H PRN 05/14/18 21:00 Albuterol/Ipratropium [DuoNeb 3.0-0.5 MG/3 ML] 3 ml NEB Q6HRRT Patient's Own Medication [Ptom] 0 each PO BID 05/14/18 21:10 CULTURE BLOOD [BC] Stat 05/14/18 21:20 CULTURE BLOOD [BC] Stat 05/14/18 21:30 cefTRIAXone [Rocephin] 1 gm Sodium Chloride 0.9% [Normal Saline] 100 ml IV Q24H 05/14/18 23:35 Metoprolol Tartrate [Lopressor] 5 mg IVPUSH Q4H PRN 05/15/18 03:57 Benzocaine/Cetylpyrd/Menthol [Cepacol Sore Throat] 1 lozenge MUCMEM Q2HR PRN 05/15/18 04:50 FREE T3 [REF] Routine 05/15/18 08:52 Sodium Chloride 0.9% [Saline Flush] 10 ml FLUSH ASDIRECTED PRN Convert IV to Saline Lock [OM.PC] Routine 05/15/18 09:00 Aspirin 81 mg PO DAILY Enoxaparin [Lovenox] 40 mg SUBCUT DAILY 05/15/18 09:30 CULTURE SPUTUM + SMEAR [] Stat 05/15/18 10:00 Losartan [Cozaar] 25 mg PO DAILY 05/15/18 11:49 Echo Comp wo Cont [US] Routine 05/15/18 14:08 Benzonatate [Tessalon Perles] 200 mg PO TID PRN 05/15/18 14:15 guaiFENesin [Mucinex] 600 mg PO BID 05/15/18 16:00 predniSONE 40 mg PO WITHBREAKFAST 05/15/18 Breakfast Regular Diet [DIET] 05/16/18 05:11 PHOSPHORUS [CHEM] AM 05/16/18 07:00 predniSONE 40 mg PO WITHBREAKFAST - Plan Plan:: COPD exacerbation with hypoxia - Continue albuterol/ipratropium bromide 4 times a day. - Albuterol nebs every 2 hours when necessary. - Continue oral prednisone 40 mg daily. - Titrate FiO2 to keep pulse ox above 92% - Rocephin 1 g daily. - Blood cultures and sputum cultures. Tachycardia - Likely secondary to demand and albuterol. - Monitor on telemetry. - TSH was slightly low so we will get a free T3 and free T4. Free T4 was normal at 1.2 and free T3 is pending. - Echocardiogram - 2 episodes of V. tach 1 running 6 beats. This is likely due to hypoxia and electrolyte disorder with lower magnesium. Hypomagnesemia - 4 g IV magnesium and recheck magnesium level in the morning. Hypertension - Restart home meds losartan 25 mg daily VTE prophylaxis with Lovenox
[2018-05-15] MEDS: guaiFENesin 600 MG Tab.ER PO SCH ×2 (16:36→20:42)
[2018-05-15] MEDS: predniSONE 20 MG Tab PO SCH (16:36)
[2018-05-15] MEDS ORDERED: Temazepam 15 MG Cap PO PRN (17:34)
[2018-05-15] MEDS: cefTRIAXone 1 GM in Sodium Chloride 0.9% 100 ML IV SCH (20:42)
[2018-05-16] MEDS: Albuterol/Ipratropium 3.0-0.5 MG/3 ML Neb Soln NEB SCH ×4 (02:15→21:55)
[2018-05-16] MEDS: predniSONE 20 MG Tab PO SCH (06:08)
[2018-05-16] MEDS ORDERED: predniSONE 20 MG Tab PO SCH (07:00)
--- NOTE | 2018-05-16 09:28 | PCM.PN ---
- General Info Date of Service: 05/16/18 Admission Dx/Problem (Free Text): Admission Diagnosis/Problem Admission Diagnosis/Problem COPD exacerbation Subjective Update: May 16, 2018 Patient continues to improve. She is less short of breath, but still oxygen dependent. Patient continues with a productive cough. No episodes of ventricular tachycardia overnight were reported. May 15, 2018 Patient states that she is feeling much better than she was when she came in. She is less short of breath. Patient does state that she has had episodes of palpitations in the past. Nurse reports 2 runs of V. tach today one being 6 beats. Patient denies any previous syncopal episodes or dizziness. She was afebrile overnight. - Review of Systems General: Reports: No Symptoms. Denies: Fever HEENT: Reports: No Symptoms. Denies: Sore Throat Pulmonary: Reports: Shortness of Breath, Cough Cardiovascular: Reports: No Symptoms. Denies: Chest Pain, Palpitations Gastrointestinal: Reports: No Symptoms. Denies: Abdominal Pain Neurological: Reports: No Symptoms Psychiatric: Reports: No Symptoms - Patient Data Vitals - Most Recent: Last Vital Signs Temp 98.1 F 05/16/18 03:14 Pulse 89 05/16/18 03:14 Resp 20 05/16/18 03:14 BP 132/80 05/16/18 03:14 Pulse Ox 90 L 05/16/18 08:38 Weight - Most Recent: 151 lb 4.8 oz I&O - Last 24 Hours: Intake & Output 05/15/18 05/16/18 05/16/18 22:59 06:59 14:59 Intake Total 1518 1100 Output Total 2150 2200 Balance -632 -1100 Lab Results Last 24 Hours: Laboratory Results - last 24 hr 05/15/18 05/15/18 05/15/18 Range/Units 04:50 04:50 04:50 WBC (3.98-10.04) K/mm3 RBC (3.98-5.22) M/mm3 Hgb (11.2-15.7) gm/L Hct (34.1-44.9) % MCV (79.4-94.8) fl MCH (25.6-32.2) pg MCHC (32.2-35.5) g/dl RDW Std Deviation (36.4-46.3) fL Plt Count (182-369) K/mm3 MPV (9.4-12.3) fl Neut % (Auto) (34.0-71.1) % Lymph % (Auto) (19.3-51.7) % Bowie % (Auto) (4.7-12.5) % Eos % (Auto) (0.7-5.8) Baso % (Auto) (0.1-1.2) % Neut # (Auto) (1.56-6.13) K/mm3 Lymph # (Auto) (1.18-3.74) K/mm3 Bowie # (Auto) (0.24-0.36) K/mm3 Eos # (Auto) (0.04-0.36) K/mm3 Baso # (Auto) (0.01-0.08) K/mm3 Sodium (136-145) mEq/L Potassium (3.5-5.1) mEq/L Chloride (98-107) mEq/L Carbon Dioxide (21-32) mEq/L Anion Gap (5-15) BUN (7-18) mg/dL Creatinine (0.55-1.02) mg/dL Est Cr Clr Drug Dosing mL/min Estimated GFR (MDRD) (>60) mL/min BUN/Creatinine Ratio (14-18) Glucose (80-115) mg/dL Calcium (8.5-10.1) mg/dL Phosphorus 3.9 (2.6-4.7) mg/dL Magnesium (1.8-2.4) mg/dl Total Bilirubin (0.2-1.0) mg/dL AST (15-37) U/L ALT (14-59) U/L Alkaline Phosphatase (46-116) U/L Total Protein (6.4-8.2) g/dl Albumin (3.4-5.0) g/dl Globulin gm/dL Albumin/Globulin Ratio (1-2) Free T4 (0.76-1.46) ng/dL Free T3 pg/mL 2.89 (2.50-3.90) pg/mL TSH 3rd Generation 0.320 L (0.358-3.74) uIU/mL 05/15/18 05/16/18 05/16/18 Range/Units 04:50 05:40 05:40 WBC 9.44 (3.98-10.04) K/mm3 RBC 4.87 (3.98-5.22) M/mm3 Hgb 13.8 (11.2-15.7) gm/L Hct 43.4 (34.1-44.9) % MCV 89.1 (79.4-94.8) fl MCH 28.3 (25.6-32.2) pg MCHC 31.8 L (32.2-35.5) g/dl RDW Std Deviation 44.2 (36.4-46.3) fL Plt Count 260 (182-369) K/mm3 MPV 8.7 L (9.4-12.3) fl Neut % (Auto) 71.8 H (34.0-71.1) % Lymph % (Auto) 16.7 L (19.3-51.7) % Bowie % (Auto) 10.5 (4.7-12.5) % Eos % (Auto) 0.2 L (0.7-5.8) Baso % (Auto) 0.6 (0.1-1.2) % Neut # (Auto) 6.77 H (1.56-6.13) K/mm3 Lymph # (Auto) 1.58 (1.18-3.74) K/mm3 Bowie # (Auto) 0.99 H (0.24-0.36) K/mm3 Eos # (Auto) 0.02 L (0.04-0.36) K/mm3 Baso # (Auto) 0.06 (0.01-0.08) K/mm3 Sodium (136-145) mEq/L Potassium (3.5-5.1) mEq/L Chloride (98-107) mEq/L Carbon Dioxide (21-32) mEq/L Anion Gap (5-15) BUN (7-18) mg/dL Creatinine (0.55-1.02) mg/dL Est Cr Clr Drug Dosing mL/min Estimated GFR (MDRD) (>60) mL/min BUN/Creatinine Ratio (14-18) Glucose (80-115) mg/dL Calcium (8.5-10.1) mg/dL Phosphorus 3.7 (2.6-4.7) mg/dL Magnesium (1.8-2.4) mg/dl Total Bilirubin (0.2-1.0) mg/dL AST (15-37) U/L ALT (14-59) U/L Alkaline Phosphatase (46-116) U/L Total Protein (6.4-8.2) g/dl Albumin (3.4-5.0) g/dl Globulin gm/dL Albumin/Globulin Ratio (1-2) Free T4 1.20 (0.76-1.46) ng/dL Free T3 pg/mL (2.50-3.90) pg/mL TSH 3rd Generation (0.358-3.74) uIU/mL 05/16/18 Range/Units 05:40 WBC (3.98-10.04) K/mm3 RBC (3.98-5.22) M/mm3 Hgb (11.2-15.7) gm/L Hct (34.1-44.9) % MCV (79.4-94.8) fl MCH (25.6-32.2) pg MCHC (32.2-35.5) g/dl RDW Std Deviation (36.4-46.3) fL Plt Count (182-369) K/mm3 MPV (9.4-12.3) fl Neut % (Auto) (34.0-71.1) % Lymph % (Auto) (19.3-51.7) % Bowie % (Auto) (4.7-12.5) % Eos % (Auto) (0.7-5.8) Baso % (Auto) (0.1-1.2) % Neut # (Auto) (1.56-6.13) K/mm3 Lymph # (Auto) (1.18-3.74) K/mm3 Bowie # (Auto) (0.24-0.36) K/mm3 Eos # (Auto) (0.04-0.36) K/mm3 Baso # (Auto) (0.01-0.08) K/mm3 Sodium 140 (136-145) mEq/L Potassium 5.0 (3.5-5.1) mEq/L Chloride 101 (98-107) mEq/L Carbon Dioxide 31 (21-32) mEq/L Anion Gap 13.0 (5-15) BUN 12 (7-18) mg/dL Creatinine 0.7 (0.55-1.02) mg/dL Est Cr Clr Drug Dosing 90.11 mL/min Estimated GFR (MDRD) > 60 (>60) mL/min BUN/Creatinine Ratio 17.1 (14-18) Glucose 91 (80-115) mg/dL Calcium 9.3 (8.5-10.1) mg/dL Phosphorus (2.6-4.7) mg/dL Magnesium 2.1 (1.8-2.4) mg/dl Total Bilirubin 0.3 (0.2-1.0) mg/dL AST 19 (15-37) U/L ALT 25 (14-59) U/L Alkaline Phosphatase 62 (46-116) U/L Total Protein 7.1 (6.4-8.2) g/dl Albumin 3.4 (3.4-5.0) g/dl Globulin 3.7 gm/dL Albumin/Globulin Ratio 0.9 L (1-2) Free T4 (0.76-1.46) ng/dL Free T3 pg/mL (2.50-3.90) pg/mL TSH 3rd Generation (0.358-3.74) uIU/mL Velasquez Results Last 24 Hours: Microbiology 05/14/18 21:20 Aerobic Blood Culture - Preliminary Blood - Venous - Lab Draw NO GROWTH AFTER 1 DAY Anaerobic Blood Culture - Preliminary NO GROWTH AFTER 1 DAY 05/14/18 21:10 Aerobic Blood Culture - Preliminary Blood - Venous NO GROWTH AFTER 1 DAY Anaerobic Blood Culture - Preliminary NO GROWTH AFTER 1 DAY 05/15/18 09:30 Gram Stain - Final Sputum - Expectorated Med Orders - Current: Current Medications Acetaminophen (Tylenol) 650 mg PO Q4H PRN PRN Reason: Pain (Mild 1-3)/fever Albuterol (Proventil Neb Soln) 2.5 mg NEB Q2H PRN PRN Reason: Dyspnea Albuterol/Ipratropium (Duoneb 3.0-0.5 Mg/3 Ml) 3 ml NEB Q6HRRT PENDING SALE TO [facility] Last Admin: 05/16/18 08:38 Dose: 3 ml Aspirin (Aspirin) 81 mg PO DAILY [facility] Last Admin: 05/15/18 09:31 Dose: 81 mg Benzocaine/Menthol (Cepacol Sore Throat) 1 lozenge MUCMEM Q2HR PRN PRN Reason: Sore Throat Last Admin: 05/15/18 04:30 Dose: 1 lozenge Benzonatate (Tessalon Perles) 200 mg PO TID PRN PRN Reason: Cough Bisacodyl (Dulcolax) 5 mg PO DAILY PRN PRN Reason: Constipation Docusate Sodium (Colace) 100 mg PO BID PRN PRN Reason: Constipation Enoxaparin Sodium (Lovenox) 40 mg SUBCUT DAILY [facility] Last Admin: 05/15/18 09:31 Dose: 40 mg Guaifenesin (Mucinex) 600 mg PO BID [facility] Last Admin: 05/15/18 20:42 Dose: 600 mg Ceftriaxone Sodium 1 gm/ (Sodium Chloride) 100 mls @ 200 mls/hr IV Q24H PENDING [facility] TO [facility] Last Admin: 05/15/18 20:42 Dose: 200 mls/hr Losartan Potassium (Cozaar) 25 mg PO DAILY [facility] Last Admin: 05/15/18 10:25 Dose: 25 mg Metoprolol Tartrate (Lopressor) 5 mg IVPUSH Q4H PRN PRN Reason: Tachycardia Ondansetron HCl (Zofran Odt) 4 mg PO Q6H PRN PRN Reason: nausea, able to take PO Varenicline Tartrate ([Chantix] 1 Mg) 0 each PO BID [facility] Last Admin: 05/15/18 21:14 Dose: Not Given Prednisone (Prednisone) 40 mg PO WITHBREAKFAST [facility] Last Admin: 05/16/18 06:08 Dose: 40 mg Sodium Chloride (Saline Flush) 10 ml FLUSH ASDIRECTED PRN PRN Reason: Keep Vein Open Temazepam (Restoril) 15 mg PO BEDTIME PRN PRN Reason: Sleep Last Admin: 05/15/18 20:40 Dose: 15 mg Discontinued Medications Albuterol (Proventil Neb Soln) 2.5 mg NEB ONETIME ONE Stop: 05/14/18 17:43 Last Admin: 05/14/18 17:48 Dose: 2.5 mg Albuterol (Proventil Neb Soln) 2.5 mg NEB ONETIME ONE Stop: 05/14/18 18:17 Last Admin: 05/14/18 18:50 Dose: 2.5 mg Albuterol/Ipratropium (Duoneb 3.0-0.5 Mg/3 Ml) 3 ml NEB ONETIME ONE Stop: 05/14/18 16:10 Last Admin: 05/14/18 16:43 Dose: 3 ml Ceftriaxone Sodium (Rocephin) 1 gm IVPUSH Q24H [facility] Last Admin: 05/14/18 22:36 Dose: Not Given Sodium Chloride (Normal Saline) 1,000 mls @ 125 mls/hr IV ASDIRECTED PENDING SALE TO [facility] Last Admin: 05/15/18 06:02 Dose: 125 mls/hr Magnesium Sulfate 4 gm/ Premix 100 mls @ 25 mls/hr IV ONETIME ONE Stop: 05/15/18 08:53 Last Admin: 05/15/18 09:30 Dose: 25 mls/hr Losartan Potassium (Cozaar) 50 mg PO DAILY [facility] Last Admin: 05/15/18 14:02 Dose: Not Given Prednisone (Prednisone) 60 mg PO ONETIME STA Stop: 05/14/18 16:10 Last Admin: 05/14/18 17:20 Dose: 60 mg Prednisone (Prednisone) 40 mg PO WITHBREAKFAST PERCY - Exam Quality Assessment: Supplemental Oxygen General: Alert, Oriented HEENT: Pupils Equal Neck: Supple, Trachea Midline Lungs: Decreased Breath Sounds. No: Normal Respiratory Effort, Wheezing Cardiovascular: Regular Rate, Regular Rhythm GI/Abdominal Exam: Soft, Non-Tender, No Distention Extremities: Normal Inspection, No Pedal Edema - Problem List & Annotations (1) HTN (hypertension) SNOMED Code(s): 13854616 Code(s): I10 - ESSENTIAL (PRIMARY) HYPERTENSION Status: Acute Current Visit: Yes (2) Tachycardia SNOMED Code(s): 0870034 Code(s): R00.0 - TACHYCARDIA, UNSPECIFIED Status: Acute Current Visit: Yes (3) COPD exacerbation SNOMED Code(s): 506570158 Code(s): J44.1 - CHRONIC OBSTRUCTIVE PULMONARY DISEASE W (ACUTE) EXACERBATION Status: Acute Current Visit: Yes (4) Hypoxemia SNOMED Code(s): 637595793 Code(s): R09.02 - HYPOXEMIA Status: Acute Current Visit: Yes - Problem List Review Problem List Initiated/Reviewed/Updated: Yes - My Orders Last 24 Hours: My Active Orders 05/15/18 08:52 Sodium Chloride 0.9% [Saline Flush] 10 ml FLUSH ASDIRECTED PRN Convert IV to Saline Lock [OM.PC] Routine 05/15/18 09:00 Aspirin 81 mg PO DAILY Enoxaparin [Lovenox] 40 mg SUBCUT DAILY 05/15/18 09:30 CULTURE SPUTUM + SMEAR [RM] Stat 05/15/18 10:00 Losartan [Cozaar] 25 mg PO DAILY 05/15/18 14:08 Benzonatate [Tessalon Perles] 200 mg PO TID PRN 05/15/18 14:15 guaiFENesin [Mucinex] 600 mg PO BID 05/15/18 16:00 predniSONE 40 mg PO WITHBREAKFAST 05/15/18 17:34 Temazepam [Restoril] 15 mg PO BEDTIME PRN 05/15/18 17:35 Pulse Oximetry [RC] ASDIRECTED 05/16/18 09:06 Discontinue Telemetry Monitoring [Cardiac Monitoring Discontinue] [RC] Click to Edit - Plan Plan:: COPD exacerbation with hypoxia - Continue albuterol/ipratropium bromide 4 times a day. - Albuterol nebs every 2 hours when necessary. - Continue oral prednisone 40 mg daily. - Titrate FiO2 to keep pulse ox above 92% - Rocephin 1 g daily. - Blood cultures and sputum cultures still pending Tachycardia - Resolved overnight - DC telemetry - TSH was slightly low but Free T4 and free T3 were normal. - Echocardiogram: Waiting for results - 2 episodes of V. tach 1 running 6 beats on first night. This was likely due to hypoxia and hypomagnesemia. No further episodes Hypomagnesemia - Corrected. Hypertension - Blood pressure is good in the 130s systolic. - Continue losartan 25 mg a day. VTE prophylaxis with Lovenox Discharge tomorrow possibly on home O2
[2018-05-16] MEDS: guaiFENesin 600 MG Tab.ER PO SCH ×2 (09:57→21:18)
[2018-05-16] MEDS: Losartan 25 MG Tab PO SCH (09:57)
[2018-05-16] MEDS: Varenicline Tartrate [Chantix] 1 MG PO SCH ×2 (09:58→21:18)
[2018-05-16] MEDS: Enoxaparin 40 MG/0.4 ML Syringe SUBCUT SCH (09:58)
[2018-05-16] MEDS: Aspirin 81 MG Tab.Chew PO SCH (09:58)
[2018-05-16] MEDS: cefTRIAXone 1 GM in Sodium Chloride 0.9% 100 ML IV SCH (21:14)
[2018-05-17] MEDS: Albuterol/Ipratropium 3.0-0.5 MG/3 ML Neb Soln NEB SCH ×2 (02:30→08:59)
[2018-05-17] MEDS: predniSONE 20 MG Tab PO SCH (06:55)
[2018-05-17] MEDS: Losartan 25 MG Tab PO SCH (08:55)
[2018-05-17] MEDS: Aspirin 81 MG Tab.Chew PO SCH (08:55)
[2018-05-17] MEDS: guaiFENesin 600 MG Tab.ER PO SCH (08:55)
[2018-05-17] MEDS: Enoxaparin 40 MG/0.4 ML Syringe SUBCUT SCH (08:56)
[2018-05-17 08:58] VITALS: BP 144/77
[2018-05-17] MEDS: Varenicline Tartrate [Chantix] 1 MG PO SCH (10:52)
--- NOTE | 2018-05-17 11:35 | PCM.DCSUM1 ---
Discharge Summary - Hospital Course HPI Initial Comments: This 62-year-old female with known COPD and emphysema presented to the emergency room via ambulance after developing worsening breathing, dyspnea on exertion, and shortness of breath. She states that about mid morning she started developing worsening breathing and noticed that she was having more difficulty walking. As the day progressed her symptoms worsened and patient became concerned and called her . They agree that she would call EMS and when patient was seen by the EMS her pulse ox was in the low to mid 80s. In the emergency room initial pulse ox was 84% and she was given albuterol and prednisone. On one and a half liters of FiO2 via nasal cannula her pulse ox increased to 91%, but she still dropped into the 80s with ambulation. Without oxygen her pulse ox drops into the 70s and her pulse increasing to the 120s. Patient denies any chest pain, palpitations, has a mild headache, weight loss, lower extremity swelling. She has had a 9 pound weight gain over the last 6 months. She started Chantix 3 months ago and she has been eating more since then. She is on triple therapy for her COPD and does have a nebulizer at home. In the emergency room patient had a d-dimer that was negative. Chest x-ray showed no acute infiltrate with emphysematous changes. Patient maintained tachycardia in the emergency room and it was felt it was secondary to albuterol and increased effort when she ambulated off oxygen. Brief History: Patient did well overall wall admitted. She had standard therapy for her COPD exacerbation with oral steroids. Patient was off oxygen within 48 hours and is able to ambulate without dropping below 88%. Patient will go home with 2 more days of prednisone and 2 days of Ceftin. - Discharge Data Discharge Date: 05/17/18 Discharge Disposition: Home, Self-Care 01 Condition: Good - Discharge Diagnosis/Problem(s) (1) HTN (hypertension) SNOMED Code(s): 78207274 ICD Code: I10 - ESSENTIAL (PRIMARY) HYPERTENSION Status: Acute Current Visit: Yes (2) Tachycardia SNOMED Code(s): 9893619 ICD Code: R00.0 - TACHYCARDIA, UNSPECIFIED Status: Acute Current Visit: Yes (3) COPD exacerbation SNOMED Code(s): 495130187 ICD Code: J44.1 - CHRONIC OBSTRUCTIVE PULMONARY DISEASE W (ACUTE) EXACERBATION Status: Acute Current Visit: Yes (4) Hypoxemia SNOMED Code(s): 851579544 ICD Code: R09.02 - HYPOXEMIA Status: Acute Current Visit: Yes - Patient Summary/Data Consults: Consultations 05/14/18 20:43 Respiratory Care Assess and Treatment [CONS] Routine 05/17/18 08:51 Consult to Pulmonary Rehabilitation [CONS] Routine Recommended Follow-up Testing/Procedures: Follow-up with PCP in 7 days and follow-up with pulmonology in 7-14 days. - Patient Instructions Diet: Usual Diet as Tolerated Activity: As Tolerated Driving: May Drive Today Showering/Bathing: May Shower Notify Provider of: Fever - Discharge Plan *PRESCRIPTION DRUG MONITORING PROGRAM REVIEWED*: Not Applicable *COPY OF PRESCRIPTION DRUG MONITORING REPORT IN PATIENT MICHELLE: Not Applicable Prescriptions/Med Rec: Albuterol [Proventil Neb Soln] 2.5 mg NEB Q4HR PRN #100 neb PRN Reason: Dyspnea Albuterol/Ipratropium [DuoNeb 3.0-0.5 MG/3 ML] 3 ml NEB Q6HRRT PRN #100 neb PRN Reason: Dyspnea Cefuroxime Axetil [Ceftin] 500 mg PO BID 2 Days #4 tablet predniSONE 40 mg PO WITHBREAKFAST 2 Days #2 tablet Home Medications: Home Meds Acetaminophen [Tylenol Extra Strength] 500 mg PO Q6H PRN 06/11/15 [History] Aspirin 81 mg PO DAILY 05/14/18 [History] Losartan [Cozaar] 25 mg PO DAILY 05/14/18 [History] Umeclidinium Brm/Vilanterol Tr [Anoro Ellipta 62.5-25 MCG] 1 inh PO DAILY [History] Varenicline Tartrate [Chantix] 1 mg PO BID 05/14/18 [History] Albuterol [Proventil Neb Soln] 2.5 mg NEB Q4HR PRN #100 neb 05/17/18 [Rx] Albuterol/Ipratropium [DuoNeb 3.0-0.5 MG/3 ML] 3 ml NEB Q6HRRT PRN #100 neb [Rx] Cefuroxime Axetil [Ceftin] 500 mg PO BID 2 Days #4 tablet 05/17/18 [Rx] Losartan [Cozaar] 25 mg PO DAILY tablet 05/17/18 [Rx] guaiFENesin [Mucinex] 600 mg PO BID tab.er 05/17/18 [Rx] predniSONE 40 mg PO WITHBREAKFAST 2 Days #2 tablet 05/17/18 [Rx] Other Amb Orders: RT Spirometry with Bronchodilator [RESPCARE] Location: None Selected Patient Handouts: Steps to Quit Smoking Referrals: Mel Haynes MD [Primary Care Provider] - - Discharge Summary/Plan Comment DC Time >30 min.: Yes Discharge Summary/Plan Comment: Patient will be discharged on DuoNeb's, albuterol, and her home inhalers. She will also be placed on prednisone 40 mg daily 2 days and Ceftin 500 mg twice a day for 2 days. She should follow-up with her PCP in 7 days and with her tomographic tech in 7-14 days. I also recommended that she start pulmonary rehabilitation. Orders were placed. Patient will also get PFTs as an outpatient. - General Info Date of Service: 05/17/18 Admission Dx/Problem (Free Text: Admission Diagnosis/Problem Admission Diagnosis/Problem COPD exacerbation Subjective Update: May 17, 2018 Patient continues to improve. She is now off oxygen. She denies any significant shortness of breath. She is concerned about her overall prognosis. This was her first hospitalization for COPD. She understands she needs to follow-up with her primary care and with pulmonology. I also recommended that she start pulmonary rehabilitation. Orders were placed. Patient will also get PFTs as an outpatient. May 16, 2018 Patient continues to improve. She is less short of breath, but still oxygen dependent. Patient continues with a productive cough. No episodes of ventricular tachycardia overnight were reported. May 15, 2018 Patient states that she is feeling much better than she was when she came in. She is less short of breath. Patient does state that she has had episodes of palpitations in the past. Nurse reports 2 runs of V. tach today one being 6 beats. Patient denies any previous syncopal episodes or dizziness. She was afebrile overnight. - Review of Systems General: Reports: No Symptoms HEENT: Reports: No Symptoms Pulmonary: Reports: Cough. Denies: Shortness of Breath Cardiovascular: Reports: No Symptoms Gastrointestinal: Reports: No Symptoms - Patient Data Vitals - Most Recent: Last Vital Signs Temp 97.5 F 05/17/18 09:01 Pulse 122 H 05/17/18 09:01 Resp 16 05/17/18 09:01 BP 144/77 H 05/17/18 08:55 Pulse Ox 90 L 05/17/18 09:01 Weight - Most Recent: 155 lb 8 oz I&O - Last 24 hours: Intake & Output 05/16/18 05/17/18 05/17/18 22:59 06:59 14:59 Intake Total 2380 1700 180 Output Total 1850 3150 Balance 530 -1450 180 MEENA Results - Last 24 hrs: Microbiology 05/15/18 09:30 Gram Stain - Final Sputum - Expectorated Sputum Culture - Preliminary Streptococcus Pneumoniae 05/14/18 21:20 Aerobic Blood Culture - Preliminary Blood - Venous - Lab Draw NO GROWTH AFTER 2 DAYS Anaerobic Blood Culture - Preliminary NO GROWTH AFTER 2 DAYS 05/14/18 21:10 Aerobic Blood Culture - Preliminary Blood - Venous NO GROWTH AFTER 2 DAYS Anaerobic Blood Culture - Preliminary NO GROWTH AFTER 2 DAYS Med Orders - Current: Current Medications Acetaminophen (Tylenol) 650 mg PO Q4H PRN PRN Reason: Pain (Mild 1-3)/fever Albuterol (Proventil Neb Soln) 2.5 mg NEB Q2H PRN PRN Reason: Dyspnea Albuterol/Ipratropium (Duoneb 3.0-0.5 Mg/3 Ml) 3 ml NEB Q6HRRT [facility] Last Admin: 05/17/18 08:59 Dose: 3 ml Aspirin (Aspirin) 81 mg PO DAILY [facility] Last Admin: 05/17/18 08:55 Dose: 81 mg Benzocaine/Menthol (Cepacol Sore Throat) 1 lozenge MUCMEM Q2HR PRN PRN Reason: Sore Throat Last Admin: 05/15/18 04:30 Dose: 1 lozenge Benzonatate (Tessalon Perles) 200 mg PO TID PRN PRN Reason: Cough Bisacodyl (Dulcolax) 5 mg PO DAILY PRN PRN Reason: Constipation Docusate Sodium (Colace) 100 mg PO BID PRN PRN Reason: Constipation Enoxaparin Sodium (Lovenox) 40 mg SUBCUT DAILY [facility] Last Admin: 05/17/18 08:56 Dose: 40 mg Guaifenesin (Mucinex) 600 mg PO BID [facility] Last Admin: 05/17/18 08:55 Dose: 600 mg Ceftriaxone Sodium 1 gm/ (Sodium Chloride) 100 mls @ 200 mls/hr IV Q24H [facility] Last Admin: 05/16/18 21:14 Dose: 200 mls/hr Losartan Potassium (Cozaar) 25 mg PO DAILY [facility] Last Admin: 05/17/18 08:55 Dose: 25 mg Metoprolol Tartrate (Lopressor) 5 mg IVPUSH Q4H PRN PRN Reason: Tachycardia Ondansetron HCl (Zofran Odt) 4 mg PO Q6H PRN PRN Reason: nausea, able to take PO Varenicline Tartrate ([Chantix] 1 Mg) 0 each PO BID [facility] Last Admin: 05/17/18 10:52 Dose: Not Given Prednisone (Prednisone) 40 mg PO WITHBREAKFAST [facility] Last Admin: 05/17/18 06:55 Dose: 40 mg Sodium Chloride (Saline Flush) 10 ml FLUSH ASDIRECTED PRN PRN Reason: Keep Vein Open Temazepam (Restoril) 15 mg PO BEDTIME PRN PRN Reason: Sleep Last Admin: 05/15/18 20:40 Dose: 15 mg Discontinued Medications Albuterol (Proventil Neb Soln) 2.5 mg NEB ONETIME ONE Stop: 05/14/18 17:43 Last Admin: 05/14/18 17:48 Dose: 2.5 mg Albuterol (Proventil Neb Soln) 2.5 mg NEB ONETIME ONE Stop: 05/14/18 18:17 Last Admin: 05/14/18 18:50 Dose: 2.5 mg Albuterol/Ipratropium (Duoneb 3.0-0.5 Mg/3 Ml) 3 ml NEB ONETIME ONE Stop: 05/14/18 16:10 Last Admin: 05/14/18 16:43 Dose: 3 ml Ceftriaxone Sodium (Rocephin) 1 gm IVPUSH Q24H [facility] Last Admin: 05/14/18 22:36 Dose: Not Given Sodium Chloride (Normal Saline) 1,000 mls @ 125 mls/hr IV ASDIRECTED [facility] Last Admin: 05/15/18 06:02 Dose: 125 mls/hr Magnesium Sulfate 4 gm/ Premix 100 mls @ 25 mls/hr IV ONETIME ONE Stop: 05/15/18 08:53 Last Admin: 05/15/18 09:30 Dose: 25 mls/hr Losartan Potassium (Cozaar) 50 mg PO DAILY [facility] Last Admin: 05/15/18 14:02 Dose: Not Given Prednisone (Prednisone) 60 mg PO ONETIME STA Stop: 05/14/18 16:10 Last Admin: 05/14/18 17:20 Dose: 60 mg Prednisone (Prednisone) 40 mg PO WITHBREAKFAST PERCY - Exam Quality Assessment: Denies: Supplemental Oxygen General: Reports: Alert, Oriented Neck: Reports: Supple Lungs: Reports: Clear to Auscultation, Normal Respiratory Effort, Decreased Breath Sounds Cardiovascular: Reports: Regular Rate, Regular Rhythm GI/Abdominal Exam: Normal Bowel Sounds, Soft, No Distention Extremities: Normal Inspection, No Pedal Edema Psy/Mental Status: Reports: Alert, Normal Affect
== END 2018-05-17 12:00 | disposition home or self-care (01) | DRG 191 ==
LOC: JD.ED 15:51 → JD.MS 20:00
PROVIDERS: ADMIT Family Medicine; ATTEND Family Medicine
DX: J44.1 Chronic obstructive pulmonary disease with (acute) exacerbation (principal); J43.9 Emphysema, unspecified; E87.2 Acidosis; I47.2 Ventricular tachycardia; R09.02 Hypoxemia; I10 Essential (primary) hypertension; F17.210 Nicotine dependence, cigarettes, uncomplicated; T48.6X5A Adverse effect of antiasthmatics, initial encounter; E83.42 Hypomagnesemia; R06.02 Shortness of breath; Z79.899 Other long term (current) drug therapy; Z88.5 Allergy status to narcotic agent
CPT/HCPCS: 36415; 36600; 71046; 80053; 82803; 84484; 85007; 85027; 85379; 93005; 94640 ×3; 99285; A9270; 83735; 84100; 84439; 84443; 84481; 85025; 86140; 87040; 87070; 87077; 87181; 87184; 87205; 93010; 93306; 94760; 94761; J0696; J1650; J3475; J7030; J7040; J7620-GY

== ENCOUNTER 2020-10-10 14:21 | Inpatient (IN) | payer MEDICARE, OTHER ==
[2020-10-10] MEDS ORDERED: Sodium Chloride 0.9% 10 ML Syringe FLUSH PRN (14:43)
[2020-10-10] MEDS ORDERED: methylPREDNISolone Sodium Succinate 125 MG/2 ML SDV IVPUSH ONE (14:44)
[2020-10-10] MEDS ORDERED: Albuterol/Ipratropium 3.0-0.5 MG/3 ML Neb Soln NEB ONE ×2 (14:44→16:11)
--- NOTE | 2020-10-10 15:08 | EDM.PDOC ---
ED HPI GENERAL MEDICAL PROBLEM - General Chief Complaint: Respiratory Problem Stated Complaint: SOB Time Seen by Provider: 10/10/20 14:31 Source of Information: Reports: Patient, Family History Limitations: Reports: No Limitations - History of Present Illness INITIAL COMMENTS - FREE TEXT/NARRATIVE: The patient presents with her for shortness of breath. She has a histor y of COPD and back in 2019 she got very sick and could not breath. She was admitted and was put on medications and oxygen. About a year ago she came off the oxygen and only needed it at night. The past few days with all the smoke in the air she has gotten more short of breath. Any exertion makes her short of breath. She checked her oxygen saturations at home and they were in the 70s. She came right in and it was 78% on room air. She has a slight cough. She has no fever or chills. She has no abdominal pain, nausea or vomiting. She has no chest pain. Onset: Gradual Duration: Day(s): Severity: Moderate Improves with: Reports: Immobilization Worsens with: Reports: Movement Associated Symptoms: Reports: Cough, Shortness of Breath. Denies: Chest Pain, Fever/Chills, Headaches, Nausea/Vomiting - Related Data Allergies Allergy/AdvReac Type Severity Reaction Status Date / Time codeine Allergy Nausea Verified 10/10/20 14:50 Home Meds: Home Meds Aspirin 81 mg PO DAILY 05/14/18 [History] Losartan [Cozaar] 50 mg PO DAILY 05/14/18 [History] Albuterol Sulfate [Albuterol Sulfate Hfa] 2 puff IH ASDIRECTED PRN 07/09/18 [History] Albuterol/Ipratropium [DuoNeb 3.0-0.5 MG/3 ML] 3 ml NEB TID PRN 07/09/18 [History] Ascorbic Acid [Vitamin C] 1,000 mg PO DAILY 07/09/18 [History] Fluticasone/Umeclidin/Vilanter [Trelegy Ellipta 100-62.5-25] 1 each IH DAILY 07/09/18 [History] Melatonin 10 mg PO DAILY 07/09/18 [History] Past Medical History Cardiovascular History: Reports: Hypertension Respiratory History: Reports: COPD Other Respiratory History: does not wear O2 at home Musculoskeletal History: Reports: Arthritis Other Musculoskeletal History: in thumb - Infectious Disease History Infectious Disease History: Reports: Chicken Pox, Measles - Past Surgical History HEENT Surgical History: Reports: Naso-Sinus Surgery, Tonsillectomy Social & Family History - Family History Family Medical History: No Pertinent Family History - Caffeine Use Caffeine Use: Reports: Coffee, Soda - Living Situation & Occupation Living situation: Reports: , with Spouse Occupation: Unemployed ED ROS GENERAL - Review of Systems Review Of Systems: See Below Constitutional: Reports: No Symptoms HEENT: Reports: No Symptoms Respiratory: Reports: Shortness of Breath, Cough Cardiovascular: Reports: No Symptoms Endocrine: Reports: No Symptoms GI/Abdominal: Reports: No Symptoms : Reports: No Symptoms Musculoskeletal: Reports: No Symptoms ED EXAM, GENERAL - Physical Exam Exam: See Below Exam Limited By: No Limitations General Appearance: Alert, No Apparent Distress Ears: Normal External Exam Nose: Normal Inspection Head: Atraumatic, Normocephalic Neck: Normal Inspection Respiratory/Chest: No Respiratory Distress, Decreased Breath Sounds Cardiovascular: Regular Rate, Rhythm, No Edema, No Murmur GI/Abdominal: Soft, Non-Tender, No Organomegaly, No Mass Back Exam: Normal Inspection Extremities: Normal Inspection #1 Interpretation EKG Date: 10/10/20 Time: 14:29 Rhythm: Other (sinus tachycardia) Rate (Beats/Min): 117 [place]: Normal P-Wave: Present QRS: Normal ST-T: Normal QT: Normal Course - Vital Signs Last Recorded V/S: Last Vital Signs Temp 98.2 F 10/10/20 14:43 Pulse 127 H 10/10/20 17:21 Resp 22 H 10/10/20 17:21 BP 156/87 H 10/10/20 17:21 Pulse Ox 90 L 10/10/20 17:21 - Orders/Labs/Meds Orders: Active Orders 24 hr Category Date Time Status Cardiac Monitoring [RC] . DIRECTED Care 10/10/20 14:43 Active EKG Documentation Completion [RC] STAT Care 10/10/20 14:43 Active Oxygen Therapy [RC] PRN Care 10/10/20 14:43 Active Peripheral IV Care [RC] . DIRECTED Care 10/10/20 14:43 Active RT Aerosol Therapy [RC] ASDIRECTED Care 10/10/20 14:45 Active RT Aerosol Therapy [RC] ASDIRECTED Care 10/10/20 16:11 Active Chest 1V Frontal [CR] Stat Exams 10/10/20 14:44 Taken BLOOD CULTURE [MREF] Stat Lab 10/10/20 15:01 Received BLOOD CULTURE [MREF] Stat Lab 10/10/20 15:10 Received Sodium Chloride 0.9% [Saline Flush] Med 10/10/20 14:43 Active 10 ml FLUSH ASDIRECTED PRN Peripheral IV Insertion Adult [OM.PC] Stat Oth 10/10/20 14:43 Ordered Medication Orders Sodium Chloride (Sodium Chloride 0.9% 10 Ml Syringe) 10 ml FLUSH ASDIRECTED PRN PRN Reason: Keep Vein Open Last Admin: 10/10/20 15:53 Dose: 10 ml Documented by: CAMILLA Labs: Laboratory Tests 10/10/20 10/10/20 10/10/20 Range/Units 15:01 15:01 15:01 WBC 8.93 (3.98-10.04) K/mm3 RBC 3.45 L (3.98-5.22) M/mm3 Hgb 9.4 L D (11.2-15.7) gm/dl Hct 29.4 L (34.1-44.9) % MCV 85.2 D (79.4-94.8) fl MCH 27.2 (25.6-32.2) pg MCHC 32.0 L (32.2-35.5) g/dl RDW Std Deviation 40.2 (36.4-46.3) fL Plt Count 457 H D (182-369) K/mm3 MPV 7.7 L (9.4-12.3) fl Neut % (Auto) 71.7 H (34.0-71.1) % Lymph % (Auto) 7.8 L (19.3-51.7) % [place] % (Auto) 15.1 H (4.7-12.5) % Eos % (Auto) 4.3 (0.7-5.8) Baso % (Auto) 0.8 (0.1-1.2) % Neut # (Auto) 6.40 H (1.56-6.13) K/mm3 Lymph # (Auto) 0.70 L (1.18-3.74) K/mm3 [place] # (Auto) 1.35 H (0.24-0.36) K/mm3 Eos # (Auto) 0.38 H (0.04-0.36) K/mm3 Baso # (Auto) 0.07 (0.01-0.08) K/mm3 Manual Slide Review Abnormal smear Puncture Site ABG pH (7.35-7.45) ABG pCO2 (35.0-45.0) mmHg ABG pO2 (80.0-100.0) mmHg ABG HCO3 (22.0-26.0) meq/L ABG O2 Saturation (96.0-97.0) % ABG Base Excess (-2-2.0) A-a Gradient mmHg O2 Delivery Device Oxygen Flow Rate FiO2 (21.00-100.00) % Sodium 128 L D (136-145) mEq/L Potassium 3.6 (3.5-5.1) mEq/L Chloride 93 L (98-107) mEq/L Carbon Dioxide 27 (21-32) mEq/L Anion Gap 11.6 (5-15) BUN 9 (7-18) mg/dL Creatinine 0.6 (0.55-1.02) mg/dL Est Cr Clr Drug Dosing 101.08 mL/min Estimated GFR (MDRD) > 60 (>60) mL/min BUN/Creatinine Ratio 15.0 (14-18) Glucose 158 H (70-99) mg/dL Lactic Acid 0.8 (0.4-2.0) mmol/L Calcium 8.4 L (8.5-10.1) mg/dL Total Bilirubin 0.4 (0.2-1.0) mg/dL AST 16 (15-37) U/L ALT 29 (14-59) U/L Alkaline Phosphatase 86 (46-116) U/L Troponin I < 0.017 (0.00-0.056) ng/mL C-Reactive Protein 25.0 H* (<1.0) mg/dL Total Protein 6.9 (6.4-8.2) g/dl Albumin 2.5 L (3.4-5.0) g/dl Globulin 4.4 gm/dL Albumin/Globulin Ratio 0.6 L (1-2) SARS-CoV-2 RNA (RADHA) (NEGATIVE) 10/10/20 10/10/20 Range/Units 15:30 15:39 WBC (3.98-10.04) K/mm3 RBC (3.98-5.22) M/mm3 Hgb (11.2-15.7) gm/dl Hct (34.1-44.9) % MCV (79.4-94.8) fl MCH (25.6-32.2) pg MCHC (32.2-35.5) g/dl RDW Std Deviation (36.4-46.3) fL Plt Count (182-369) K/mm3 MPV (9.4-12.3) fl Neut % (Auto) (34.0-71.1) % Lymph % (Auto) (19.3-51.7) % [place] % (Auto) (4.7-12.5) % Eos % (Auto) (0.7-5.8) Baso % (Auto) (0.1-1.2) % Neut # (Auto) (1.56-6.13) K/mm3 Lymph # (Auto) (1.18-3.74) K/mm3 [place] # (Auto) (0.24-0.36) K/mm3 Eos # (Auto) (0.04-0.36) K/mm3 Baso # (Auto) (0.01-0.08) K/mm3 Manual Slide Review Puncture Site Rt radial ABG pH 7.45 (7.35-7.45) ABG pCO2 40.3 (35.0-45.0) mmHg ABG pO2 71.0 L (80.0-100.0) mmHg ABG HCO3 27.6 H (22.0-26.0) meq/L ABG O2 Saturation 93.6 L (96.0-97.0) % ABG Base Excess 3.8 H (-2-2.0) A-a Gradient 107 mmHg O2 Delivery Device Nasal cannula Oxygen Flow Rate 3.0 FiO2 32.00 (21.00-100.00) % Sodium (136-145) mEq/L Potassium (3.5-5.1) mEq/L Chloride (98-107) mEq/L Carbon Dioxide (21-32) mEq/L Anion Gap (5-15) BUN (7-18) mg/dL Creatinine (0.55-1.02) mg/dL Est Cr Clr Drug Dosing mL/min Estimated GFR (MDRD) (>60) mL/min BUN/Creatinine Ratio (14-18) Glucose (70-99) mg/dL Lactic Acid (0.4-2.0) mmol/L Calcium (8.5-10.1) mg/dL Total Bilirubin (0.2-1.0) mg/dL AST (15-37) U/L ALT (14-59) U/L Alkaline Phosphatase (46-116) U/L Troponin I (0.00-0.056) ng/mL C-Reactive Protein (<1.0) mg/dL Total Protein (6.4-8.2) g/dl Albumin (3.4-5.0) g/dl Globulin gm/dL Albumin/Globulin Ratio (1-2) SARS-CoV-2 RNA (RADHA) Negative (NEGATIVE) Meds: Medications Generic Name Dose Route Start Last Admin Trade Name Freq PRN Reason Stop Dose Admin Sodium Chloride 10 ml 10/10/20 14:43 10/10/20 15:53 Sodium Chloride 0.9% 10 Ml Syringe FLUSH 10 ml ASDIRECTED PRN Administration Keep Vein Open Discontinued Medications Generic Name Dose Route Start Last Admin Trade Name Freq PRN Reason Stop Dose Admin Albuterol/Ipratropium 3 ml 10/10/20 14:44 10/10/20 15:20 Albuterol/Ipratropium 3.0-0.5 Mg/3 Ml Neb Soln NEB 10/10/20 14:45 3 ml ONETIME ONE Administration Albuterol/Ipratropium 3 ml 10/10/20 16:11 10/10/20 16:23 Albuterol/Ipratropium 3.0-0.5 Mg/3 Ml Neb Soln NEB 10/10/20 16:12 3 ml ONETIME ONE Administration Methylprednisolone Sodium Succinate 125 mg 10/10/20 14:44 10/10/20 15:52 Methylprednisolone Sodium Succinate 125 Mg/2 Ml Sdv IVPUSH 10/10/20 14:45 125 mg ONETIME ONE Administration - Re-Assessments/Exams Free Text/Narrative Re-Assessment/Exam: 10/10/20 15:23 I ordered oxygen, IV saline lock, EKG, CXR, labs, blood cultures, COVID 19, ABG, lactic acid, duoneb and solu-medrol 125mg IV. Her EKG shows a sinus tachycardia with no acute changes. Her CXR shows emphysema but nothing acute. 10/10/20 15:59 Her WBC was normal. Her Hgb was low at 9.4. Her pH was normal at 7.45. Her pCO2 was normal at 40.3. Her pO2 was low at 71. Her Na was low at 128. Her glucose was elevated at 158. Her lactic acid is normal. Her troponin is negative. 10/10/20 17:37 Her COVID is negative. I gave her another treatment. I feel she needs to be admitted. I called Dr Reno and he agreed to the admission. Departure - Departure Time of Disposition: 17:50 Disposition: Admitted As Inpatient 66 Condition: Poor Clinical Impression: COPD exacerbation, Hypoxia - Discharge Information Referrals: Mel Haynes SHOE [facility]ONER [Primary Care Provider] - Forms: ED Department Discharge Sepsis Event Note (ED) - Focused Exam Vital Signs: Vital Signs Temp Pulse Pulse Pulse Resp BP Pulse Ox 10/10/20 17:21 127 H 22 H 156/87 H 90 L 10/10/20 16:36 100 100 102 H 16 155/100 H 99 10/10/20 16:11 10/10/20 15:57 90 18 147/85 H 90 L 10/10/20 14:45 10/10/20 14:43 98.2 F 115 H 18 139/81 78 L Pulse Ox 10/10/20 17:21 10/10/20 16:36 10/10/20 16:11 93 L 10/10/20 15:57 10/10/20 14:45 92 L 10/10/20 14:43 - My Orders Last 24 Hours: My Active Orders 10/10/20 14:43 Cardiac Monitoring [RC] . DIRECTED EKG Documentation Completion [RC] STAT Oxygen Therapy [RC] PRN Peripheral IV Care [RC] . DIRECTED Sodium Chloride 0.9% [Saline Flush] 10 ml FLUSH ASDIRECTED PRN Peripheral IV Insertion Adult [OM.PC] Stat 10/10/20 14:44 Chest 1V Frontal [CR] Stat 10/10/20 14:45 RT Aerosol Therapy [RC] ASDIRECTED 10/10/20 15:01 BLOOD CULTURE [MREF] Stat 10/10/20 15:10 BLOOD CULTURE [MREF] Stat 10/10/20 16:11 RT Aerosol Therapy [RC] ASDIRECTED - Assessment/Plan Last 24 Hours: My Active Orders 10/10/20 14:43 Cardiac Monitoring [RC] . DIRECTED EKG Documentation Completion [RC] STAT Oxygen Therapy [RC] PRN Peripheral IV Care [RC] . DIRECTED Sodium Chloride 0.9% [Saline Flush] 10 ml FLUSH ASDIRECTED PRN Peripheral IV Insertion Adult [OM.PC] Stat 10/10/20 14:44 Chest 1V Frontal [CR] Stat 10/10/20 14:45 RT Aerosol Therapy [RC] ASDIRECTED 10/10/20 15:01 BLOOD CULTURE [MREF] Stat 10/10/20 15:10 BLOOD CULTURE [MREF] Stat 10/10/20 16:11 RT Aerosol Therapy [RC] ASDIRECTED
[2020-10-10] MEDS ORDERED: Acetaminophen 325 MG Tab PO PRN (17:39)
[2020-10-10] MEDS ORDERED: Ondansetron 4 MG/2 ML SDV IV PRN (17:39)
[2020-10-10] MEDS ORDERED: Benzonatate 100 MG Cap PO PRN (17:41)
[2020-10-10] MEDS ORDERED: guaiFENesin/Dextromethorphan 100-10 MG/5 ML Soln 5 ML Cup PO PRN (17:41)
--- NOTE | 2020-10-10 18:18 | PCM.HP.2 ---
H&P History of Present Illness - General Date of Service: 10/10/20 Admit Problem/Dx: Admission Diagnosis/Problem Admission Diagnosis/Problem Chronic obstructive asthma with exacerbation Source of Information: Patient - History of Present Illness Initial Comments - Free Text/Narative: This is a 65F with PMHx of oxygen dependent COPD (On 2 liters of oxygen at nightime) presenting for evaluation of SOB. The patient endorses SOB and productive cough. She denies chest pain. She denies tobacco use. She has had worsening SOB over the last 4 days. She denies fever, nausea, vomiting, abdominal pain. She presented to ED and was noted to be hypoxic. She was given duonebs+solumedrol and admitted for further evaluation. She states nebulizer has helped with respiratory symptoms. - Related Data Allergies/Adverse Reactions: Allergies Allergy/AdvReac Type Severity Reaction Status Date / Time codeine Allergy Nausea Verified 10/10/20 18:22 Home Medications: Home Meds Aspirin 81 mg PO DAILY 05/14/18 [History] Losartan [Cozaar] 50 mg PO DAILY 05/14/18 [History] Albuterol Sulfate [Albuterol Sulfate Hfa] 2 puff IH ASDIRECTED PRN 07/09/18 [History] Albuterol/Ipratropium [DuoNeb 3.0-0.5 MG/3 ML] 3 ml NEB TID PRN 07/09/18 [Histo ry] Ascorbic Acid [Vitamin C] 1,000 mg PO DAILY 07/09/18 [History] Fluticasone/Umeclidin/Vilanter [Trelegy Ellipta 100-62.5-25] 1 each IH DAILY 07/09/18 [History] Melatonin 10 mg PO DAILY 07/09/18 [History] Past Medical History HEENT History: Reports: Impaired Vision Cardiovascular History: Reports: Hypertension Respiratory History: Reports: COPD Other Respiratory History: does not wear O2 at home Musculoskeletal History: Reports: Arthritis Other Musculoskeletal History: in thumb - Infectious Disease History Infectious Disease History: Reports: Chicken Pox, Measles - Past Surgical History HEENT Surgical History: Reports: Naso-Sinus Surgery, Tonsillectomy Respiratory Surgical History: Reports: None Female Surgical History: Reports: Other (See Below) Other Female Surgeries/Procedures: Right groin and labia surgery Jun, 2019 Social & Family History - Family History Family Medical History: No Pertinent Family History - Tobacco Use Tobacco Use Status *Q: Former Tobacco User Years of Tobacco use: 40 Used Tobacco, but Quit: Yes Month/Year Tobacco Last Used: april 2018 - Caffeine Use Caffeine Use: Reports: Soda - Recreational Drug Use Recreational Drug Use: No - Living Situation & Occupation Living situation: Reports: , with Spouse Occupation: Unemployed H&P Review of Systems - Review of Systems: Review Of Systems: Comprehensive ROS is negative, except as noted in HPI. Exam - Exam Exam: See Below - Vital Signs Vital Signs: Last Vital Signs Temp 98.2 F 10/10/20 14:43 Pulse 127 H 10/10/20 17: Resp 22 H 10/10/20 17:21 BP 156/87 H 10/10/20 17: Pulse Ox 90 L 10/10/20 17:21 Weight: 179 lb 14.4 oz - Exam Quality Assessment: Supplemental Oxygen General: Alert, Oriented HEENT: EOMI, Nares Patent, Normal Nasal Septum Neck: Supple Lungs: Decreased Breath Sounds, Wheezing Cardiovascular: Regular Rate, Regular Rhythm, Normal S1, Normal S2 GI/Abdominal Exam: Soft, Non-Tender Extremities: Normal Inspection Skin: Warm, Dry, Intact Neurological: Cranial Nerves Intact Neuro Extensive - Mental Status: Alert, Oriented x3, Normal Mood/Affect Psychiatric: Alert, Normal Affect, Normal Mood - Patient Data Lab Results Last 24 hrs: Laboratory Results - last 24 hr 10/10/20 10/10/20 10/10/20 Range/Units 15:01 15:01 15:01 WBC 8.93 (3.98-10.04) K/mm3 RBC 3.45 L (3.98-5.22) M/mm3 Hgb 9.4 L D (11.2-15.7) gm/dl Hct 29.4 L (34.1-44.9) % MCV 85.2 D (79.4-94.8) fl MCH 27.2 (25.6-32.2) pg MCHC 32.0 L (32.2-35.5) g/dl RDW Std Deviation 40.2 (36.4-46.3) fL Plt Count 457 H D (182-369) K/mm3 MPV 7.7 L (9.4-12.3) fl Neut % (Auto) 71.7 H (34.0-71.1) % Lymph % (Auto) 7.8 L (19.3-51.7) % [place] % (Auto) 15.1 H (4.7-12.5) % Eos % (Auto) 4.3 (0.7-5.8) Baso % (Auto) 0.8 (0.1-1.2) % Neut # (Auto) 6.40 H (1.56-6.13) K/mm3 Lymph # (Auto) 0.70 L (1.18-3.74) K/mm3 [place] # (Auto) 1.35 H (0.24-0.36) K/mm3 Eos # (Auto) 0.38 H (0.04-0.36) K/mm3 Baso # (Auto) 0.07 (0.01-0.08) K/mm3 Manual Slide Review Abnormal smear Puncture Site ABG pH (7.35-7.45) ABG pCO2 (35.0-45.0) mmHg ABG pO2 (80.0-100.0) mmHg ABG HCO3 (22.0-26.0) meq/L ABG O2 Saturation (96.0-97.0) % ABG Base Excess (-2-2.0) A-a Gradient mmHg O2 Delivery Device Oxygen Flow Rate FiO2 (21.00-100.00) % Sodium 128 L D (136-145) mEq/L Potassium 3.6 (3.5-5.1) mEq/L Chloride 93 L (98-107) mEq/L Carbon Dioxide 27 (21-32) mEq/L Anion Gap 11.6 (5-15) BUN 9 (7-18) mg/dL Creatinine 0.6 (0.55-1.02) mg/dL Est Cr Clr Drug Dosing 101.08 mL/min Estimated GFR (MDRD) > 60 (>60) mL/min BUN/Creatinine Ratio 15.0 (14-18) Glucose 158 H (70-99) mg/dL Lactic Acid 0.8 (0.4-2.0) mmol/L Calcium 8.4 L (8.5-10.1) mg/dL Total Bilirubin 0.4 (0.2-1.0) mg/dL AST 16 (15-37) U/L ALT 29 (14-59) U/L Alkaline Phosphatase 86 (46-116) U/L Troponin I < 0.017 (0.00-0.056) ng/mL C-Reactive Protein 25.0 H* (<1.0) mg/dL Total Protein 6.9 (6.4-8.2) g/dl Albumin 2.5 L (3.4-5.0) g/dl Globulin 4.4 gm/dL Albumin/Globulin Ratio 0.6 L (1-2) SARS-CoV-2 RNA (RADHA) (NEGATIVE) 10/10/20 10/10/20 Range/Units 15:30 15:39 WBC (3.98-10.04) K/mm3 RBC (3.98-5.22) M/mm3 Hgb (11.2-15.7) gm/dl Hct (34.1-44.9) % MCV (79.4-94.8) fl MCH (25.6-32.2) pg MCHC (32.2-35.5) g/dl RDW Std Deviation (36.4-46.3) fL Plt Count (182-369) K/mm3 MPV (9.4-12.3) fl Neut % (Auto) (34.0-71.1) % Lymph % (Auto) (19.3-51.7) % [place] % (Auto) (4.7-12.5) % Eos % (Auto) (0.7-5.8) Baso % (Auto) (0.1-1.2) % Neut # (Auto) (1.56-6.13) K/mm3 Lymph # (Auto) (1.18-3.74) K/mm3 [place] # (Auto) (0.24-0.36) K/mm3 Eos # (Auto) (0.04-0.36) K/mm3 Baso # (Auto) (0.01-0.08) K/mm3 Manual Slide Review Puncture Site Rt radial ABG pH 7.45 (7.35-7.45) ABG pCO2 40.3 (35.0-45.0) mmHg ABG pO2 71.0 L (80.0-100.0) mmHg ABG HCO3 27.6 H (22.0-26.0) meq/L ABG O2 Saturation 93.6 L (96.0-97.0) % ABG Base Excess 3.8 H (-2-2.0) A-a Gradient 107 mmHg O2 Delivery Device Nasal cannula Oxygen Flow Rate 3.0 FiO2 32.00 (21.00-100.00) % Sodium (136-145) mEq/L Potassium (3.5-5.1) mEq/L Chloride (98-107) mEq/L Carbon Dioxide (21-32) mEq/L Anion Gap (5-15) BUN (7-18) mg/dL Creatinine (0.55-1.02) mg/dL Est Cr Clr Drug Dosing mL/min Estimated GFR (MDRD) (>60) mL/min BUN/Creatinine Ratio (14-18) Glucose (70-99) mg/dL Lactic Acid (0.4-2.0) mmol/L Calcium (8.5-10.1) mg/dL Total Bilirubin (0.2-1.0) mg/dL AST (15-37) U/L ALT (14-59) U/L Alkaline Phosphatase (46-116) U/L Troponin I (0.00-0.056) ng/mL C-Reactive Protein (<1.0) mg/dL Total Protein (6.4-8.2) g/dl Albumin (3.4-5.0) g/dl Globulin gm/dL Albumin/Globulin Ratio (1-2) SARS-CoV-2 RNA (RADHA) Negative (NEGATIVE) Result Diagrams: 10/10/20 15:01 10/10/20 15:01 Sepsis Event Note - Focused Exam Vital Signs: Vital Signs Temp Pulse Pulse Pulse Resp BP Pulse Ox 10/10/20 17:21 127 H 22 H 156/87 H 90 L 10/10/20 16:36 100 100 102 H 16 155/100 H 99 10/10/20 16:11 10/10/20 15:57 90 18 147/85 H 90 L 10/10/20 14:45 10/10/20 14:43 98.2 F 115 H 18 139/81 78 L Pulse Ox 10/10/20 17:21 10/10/20 16:36 10/10/20 16:11 93 L 10/10/20 15:57 10/10/20 14:45 92 L 10/10/20 14:43 Problem List Initiated/Reviewed/Updated: Yes Orders Last 24hrs: Active Orders 24 hr Category Date Time Status Patient Status [ADT] Routine ADT 10/10/20 17:52 Active Cardiac Monitoring [RC] . DIRECTED Care 10/10/20 14:43 Active EKG Documentation Completion [RC] STAT Care 10/10/20 14:43 Active Height and Weight [RC] DAILY Care 10/10/20 17:39 Active Intake and Output [RC] QSHIFT Care 10/10/20 17:39 Active Oxygen Therapy [RC] PRN Care 10/10/20 14:43 Active Oxygen Therapy [RC] PRN Care 10/10/20 17:39 Active Peripheral IV Care [RC] . DIRECTED Care 10/10/20 14:43 Active RT Aerosol Therapy [RC] ASDIRECTED Care 10/10/20 14:45 Active RT Aerosol Therapy [RC] ASDIRECTED Care 10/10/20 16:11 Active RT Aerosol Therapy [RC] ASDIRECTED Care 10/10/20 17:41 Active Up ad Karli [RC] ASDIRECTED Care 10/10/20 17:39 Active VTE/DVT Education [RC] PER UNIT ROUTINE Care 10/10/20 17:39 Active Vital Signs [RC] Q4H Care 10/10/20 17:39 Active Regular Diet [DIET] Diet 10/10/20 Dinner Active Chest 1V Frontal [CR] Stat Exams 10/10/20 14:44 Taken BASIC METABOLIC PANEL,BMP [CHEM] AM Lab 10/11/20 05:11 Ordered BLOOD CULTURE [MREF] Stat Lab 10/10/20 15:01 Received BLOOD CULTURE [MREF] Stat Lab 10/10/20 15:10 Received CBC WITH AUTO DIFF [HEME] AM Lab 10/11/20 05:11 Ordered Acetaminophen [TylenoL] Med 10/10/20 17:39 Active 650 mg PO Q4H PRN Albuterol/Ipratropium [DuoNeb 3.0-0.5 MG/3 ML] Med 10/10/20 21:00 Active 3 ml NEB QID Benzonatate [Tessalon Perles] Med 10/10/20 17:41 Active 100 mg PO Q8H PRN Dextromethorphan/guaiFENesin [Robitussin DM] Med 10/10/20 17:41 Active 5 ml PO Q4H PRN Enoxaparin [Lovenox] Med 10/11/20 09:00 Active 40 mg SUBCUT DAILY Ondansetron [Zofran] Med 10/10/20 17:39 Active 4 mg IV Q4H PRN Sodium Chloride 0.9% [Normal Saline] 1,000 ml Med 10/10/20 17:45 Active IV ASDIRECTED Sodium Chloride 0.9% [Saline Flush] Med 10/10/20 14:43 Active 10 ml FLUSH ASDIRECTED PRN levoFLOXacin [Levaquin] Med 10/10/20 18:30 Ordered 750 mg PO Q24H predniSONE Med 10/11/20 07:00 Active 60 mg PO WITHBREAKFAST Peripheral IV Insertion Adult [OM.PC] Stat Oth 10/10/20 14:43 Ordered Resuscitation Status Routine Resus Stat 10/10/20 17:39 Ordered Medication Orders Acetaminophen (Acetaminophen 325 Mg Tab) 650 mg PO Q4H PRN PRN Reason: Pain (Mild 1-3)/fever Albuterol/Ipratropium (Albuterol/Ipratropium 3.0-0.5 Mg/3 Ml Neb Soln) 3 ml NEB QID PERCY Benzonatate (Benzonatate 100 Mg Cap) 100 mg PO Q8H PRN PRN Reason: Cough Enoxaparin Sodium (Enoxaparin 40 Mg/0.4 Ml Syringe) 40 mg SUBCUT DAILY PERCY Guaifenesin/Phenylephrine HCl (Guaifenesin/Dextromethorphan 100-10 Mg/5 Ml Soln 5 Ml Cup) 5 ml PO Q4H PRN PRN Reason: Cough Sodium Chloride (Normal Saline) 1,000 mls @ 100 mls/hr IV ASDIRECTED PERCY Ondansetron HCl (Ondansetron 4 Mg/2 Ml Sdv) 4 mg IV Q4H PRN PRN Reason: Nausea/Vomiting Prednisone (Prednisone 20 Mg Tab) 60 mg PO WITHBREAKFAST PER[facility] Sodium Chloride (Sodium Chloride 0.9% 10 Ml Syringe) 10 ml FLUSH ASDIRECTED PRN PRN Reason: Keep Vein Open Last Admin: 10/10/20 15:53 Dose: 10 ml Documented by: CAMILLA Assessment/Plan Comment:: Assessment: This is a 65F with PMHx of oxygen dependent COPD (On 2 liters of oxygen at nightime) presenting for evaluation of SOB, and productive cough. She denies chest pain. She presented to ED and was noted to be hypoxic. She was given duonebs+solumedrol and admitted for further evaluation. She states nebulizer has helped with respiratory symptoms. 1. Acute COPD exacerbation; acute on chronic hypoxia 2. Hx of HTN 3. Hx of insomnia 4. Suspected hypovolemic hyponatremia/hypochloremia 5. Normocytic anemia PLan -transition to prednisone -levaquin -scheduled nebs -RT consult -prn sonia guerra -IVF -repeat BMP in AM Code-Full DVT ppx-lovenox - Mortality Measure Prognosis:: Good
[2020-10-10] MEDS: Levofloxacin 750 MG Tab PO SCH (18:54)
[2020-10-10] MEDS: Sodium Chloride 0.9% 1,000 ML IV SCH (18:55)
[2020-10-10] MEDS ORDERED: Lactated Ringers 500 ML IV ONE (19:38)
[2020-10-10] MEDS ORDERED: Albuterol/Ipratropium 3.0-0.5 MG/3 ML Neb Soln NEB SCH (21:00)
[2020-10-10] MEDS ORDERED: traZODone 50 MG Tab PO PRN (22:19)
[2020-10-11] MEDS: predniSONE 20 MG Tab PO SCH (06:05)
[2020-10-11] MEDS: Albuterol/Ipratropium 3.0-0.5 MG/3 ML Neb Soln NEB SCH ×4 (06:11→21:00)
[2020-10-11] MEDS: Sodium Chloride 0.9% 1,000 ML IV SCH (06:12)
--- NOTE | 2020-10-11 07:14 | CR ---
Chest: Portable view of the chest was obtained. Comparison: Prior chest x-ray of 05/14/18. Heart size and mediastinum are normal. Lung markings are slightly increased within both lung bases. Lungs otherwise are clear but hyperinflated. Bony structures show nothing acute. Impression: 1. Slight increased lung markings within both lung bases. Please correlate if patient has any symptoms of bronchitis, this may also be accentuated from technique. 2. Emphysematous change. 3. Nothing acute is otherwise seen on portable chest x-ray. Diagnostic code #2
[2020-10-11] MEDS ORDERED: Dextrose 5% in Water 1,000 ML IV SCH ×2 (07:30→15:15)
[2020-10-11] MEDS: Enoxaparin 40 MG/0.4 ML Syringe SUBCUT SCH (09:32)
[2020-10-11] MEDS: Aspirin 81 MG Tab.EC PO SCH (09:43)
[2020-10-11] MEDS: Losartan 25 MG Tab PO SCH (09:43)
[2020-10-11] MEDS: Citalopram 20 MG Tab PO SCH (09:44)
--- NOTE | 2020-10-11 10:25 | PCM.PN ---
- General Info Date of Service: 10/11/20 Admission Dx/Problem (Free Text): Admission Diagnosis/Problem Admission Diagnosis/Problem Chronic obstructive asthma with exacerbation Subjective Update: SOB improving mild cough fatigue and SOB with activity denies with chest pain Daughter and updated - Review of Systems HEENT: Reports: No Symptoms Pulmonary: Reports: Shortness of Breath, Cough Cardiovascular: Reports: Dyspnea on Exertion Gastrointestinal: Reports: No Symptoms Musculoskeletal: Reports: No Symptoms Skin: Reports: No Symptoms Neurological: Reports: No Symptoms - Patient Data Vitals - Most Recent: Last Vital Signs Temp 97.9 F 10/11/20 08:10 Pulse 95 10/11/20 08:10 Resp 18 10/11/20 08:10 BP 156/76 H 10/11/20 09:43 Pulse Ox 92 L 10/11/20 09:05 Weight - Most Recent: 177 lb 12.8 oz I&O - Last 24 Hours: Intake & Output 10/10/20 10/11/20 10/11/20 22:59 06:59 14:59 Intake Total 2425 Output Total 1975 Balance 450 Lab Results Last 24 Hours: Laboratory Results - last 24 hr 10/10/20 10/10/20 10/10/20 Range/Units 15:01 15:01 15:01 WBC 8.93 (3.98-10.04) K/mm3 RBC 3.45 L (3.98-5.22) M/mm3 Hgb 9.4 L D (11.2-15.7) gm/dl Hct 29.4 L (34.1-44.9) % MCV 85.2 D (79.4-94.8) fl MCH 27.2 (25.6-32.2) pg MCHC 32.0 L (32.2-35.5) g/dl RDW Std Deviation 40.2 (36.4-46.3) fL Plt Count 457 H D (182-369) K/mm3 MPV 7.7 L (9.4-12.3) fl Neut % (Auto) 71.7 H (34.0-71.1) % Lymph % (Auto) 7.8 L (19.3-51.7) % Richardson % (Auto) 15.1 H (4.7-12.5) % Eos % (Auto) 4.3 (0.7-5.8) Baso % (Auto) 0.8 (0.1-1.2) % Neut # (Auto) 6.40 H (1.56-6.13) K/mm3 Lymph # (Auto) 0.70 L (1.18-3.74) K/mm3 Richardson # (Auto) 1.35 H (0.24-0.36) K/mm3 Eos # (Auto) 0.38 H (0.04-0.36) K/mm3 Baso # (Auto) 0.07 (0.01-0.08) K/mm3 Manual Slide Review Abnormal smear Puncture Site ABG pH (7.35-7.45) ABG pCO2 (35.0-45.0) mmHg ABG pO2 (80.0-100.0) mmHg ABG HCO3 (22.0-26.0) meq/L ABG O2 Saturation (96.0-97.0) % ABG Base Excess (-2-2.0) A-a Gradient mmHg O2 Delivery Device Oxygen Flow Rate FiO2 (21.00-100.00) % Sodium 128 L D (136-145) mEq/L Potassium 3.6 (3.5-5.1) mEq/L Chloride 93 L (98-107) mEq/L Carbon Dioxide 27 (21-32) mEq/L Anion Gap 11.6 (5-15) BUN 9 (7-18) mg/dL Creatinine 0.6 (0.55-1.02) mg/dL Est Cr Clr Drug Dosing 101.08 mL/min Estimated GFR (MDRD) > 60 (>60) mL/min BUN/Creatinine Ratio 15.0 (14-18) Glucose 158 H (70-99) mg/dL Lactic Acid 0.8 (0.4-2.0) mmol/L Calcium 8.4 L (8.5-10.1) mg/dL Total Bilirubin 0.4 (0.2-1.0) mg/dL AST 16 (15-37) U/L ALT 29 (14-59) U/L Alkaline Phosphatase 86 (46-116) U/L Troponin I < 0.017 (0.00-0.056) ng/mL C-Reactive Protein 25.0 H* (<1.0) mg/dL Total Protein 6.9 (6.4-8.2) g/dl Albumin 2.5 L (3.4-5.0) g/dl Globulin 4.4 gm/dL Albumin/Globulin Ratio 0.6 L (1-2) SARS-CoV-2 RNA (RADHA) (NEGATIVE) 10/10/20 10/10/20 10/10/20 Range/Units 15:30 15:39 19:50 WBC (3.98-10.04) K/mm3 RBC (3.98-5.22) M/mm3 Hgb (11.2-15.7) gm/dl Hct (34.1-44.9) % MCV (79.4-94.8) fl MCH (25.6-32.2) pg MCHC (32.2-35.5) g/dl RDW Std Deviation (36.4-46.3) fL Plt Count (182-369) K/mm3 MPV (9.4-12.3) fl Neut % (Auto) (34.0-71.1) % Lymph % (Auto) (19.3-51.7) % Richardson % (Auto) (4.7-12.5) % Eos % (Auto) (0.7-5.8) Baso % (Auto) (0.1-1.2) % Neut # (Auto) (1.56-6.13) K/mm3 Lymph # (Auto) (1.18-3.74) K/mm3 Richardson # (Auto) (0.24-0.36) K/mm3 Eos # (Auto) (0.04-0.36) K/mm3 Baso # (Auto) (0.01-0.08) K/mm3 Manual Slide Review Puncture Site Rt radial ABG pH 7.45 (7.35-7.45) ABG pCO2 40.3 (35.0-45.0) mmHg ABG pO2 71.0 L (80.0-100.0) mmHg ABG HCO3 27.6 H (22.0-26.0) meq/L ABG O2 Saturation 93.6 L (96.0-97.0) % ABG Base Excess 3.8 H (-2-2.0) A-a Gradient 107 mmHg O2 Delivery Device Nasal cannula Oxygen Flow Rate 3.0 FiO2 32.00 (21.00-100.00) % Sodium (136-145) mEq/L Potassium (3.5-5.1) mEq/L Chloride (98-107) mEq/L Carbon Dioxide (21-32) mEq/L Anion Gap (5-15) BUN (7-18) mg/dL Creatinine (0.55-1.02) mg/dL Est Cr Clr Drug Dosing mL/min Estimated GFR (MDRD) (>60) mL/min BUN/Creatinine Ratio (14-18) Glucose (70-99) mg/dL Lactic Acid 0.8 (0.4-2.0) mmol/L Calcium (8.5-10.1) mg/dL Total Bilirubin (0.2-1.0) mg/dL AST (15-37) U/L ALT (14-59) U/L Alkaline Phosphatase (46-116) U/L Troponin I (0.00-0.056) ng/mL C-Reactive Protein (<1.0) mg/dL Total Protein (6.4-8.2) g/dl Albumin (3.4-5.0) g/dl Globulin gm/dL Albumin/Globulin Ratio (1-2) SARS-CoV-2 RNA (RADHA) Negative (NEGATIVE) 10/10/20 10/11/20 10/11/20 Range/Units 22:00 05:15 05:15 WBC 5.89 (3.98-10.04) K/mm3 RBC 3.32 L (3.98-5.22) M/mm3 Hgb 9.2 L (11.2-15.7) gm/dl Hct 28.4 L (34.1-44.9) % MCV 85.5 (79.4-94.8) fl MCH 27.7 (25.6-32.2) pg MCHC 32.4 (32.2-35.5) g/dl RDW Std Deviation 40.0 (36.4-46.3) fL Plt Count 449 H (182-369) K/mm3 MPV 7.6 L (9.4-12.3) fl Neut % (Auto) 82.5 H (34.0-71.1) % Lymph % (Auto) 9.2 L (19.3-51.7) % Richardson % (Auto) 7.8 (4.7-12.5) % Eos % (Auto) 0 L (0.7-5.8) Baso % (Auto) 0.3 (0.1-1.2) % Neut # (Auto) 4.86 (1.56-6.13) K/mm3 Lymph # (Auto) 0.54 L (1.18-3.74) K/mm3 Richardson # (Auto) 0.46 H (0.24-0.36) K/mm3 Eos # (Auto) 0.00 L (0.04-0.36) K/mm3 Baso # (Auto) 0.02 (0.01-0.08) K/mm3 Manual Slide Review Normal smear Puncture Site ABG pH (7.35-7.45) ABG pCO2 (35.0-45.0) mmHg ABG pO2 (80.0-100.0) mmHg ABG HCO3 (22.0-26.0) meq/L ABG O2 Saturation (96.0-97.0) % ABG Base Excess (-2-2.0) A-a Gradient mmHg O2 Delivery Device Oxygen Flow Rate FiO2 (21.00-100.00) % Sodium 140 D (136-145) mEq/L Potassium 4.1 (3.5-5.1) mEq/L Chloride 102 (98-107) mEq/L Carbon Dioxide 29 (21-32) mEq/L Anion Gap 13.1 (5-15) BUN 7 (7-18) mg/dL Creatinine 0.5 L (0.55-1.02) mg/dL Est Cr Clr Drug Dosing 121.30 mL/min Estimated GFR (MDRD) > 60 (>60) mL/min BUN/Creatinine Ratio 14.0 (14-18) Glucose 136 H (70-99) mg/dL Lactic Acid 1.8 (0.4-2.0) mmol/L Calcium 8.8 (8.5-10.1) mg/dL Total Bilirubin (0.2-1.0) mg/dL AST (15-37) U/L ALT (14-59) U/L Alkaline Phosphatase (46-116) U/L Troponin I (0.00-0.056) ng/mL C-Reactive Protein (<1.0) mg/dL Total Protein (6.4-8.2) g/dl Albumin (3.4-5.0) g/dl Globulin gm/dL Albumin/Globulin Ratio (1-2) SARS-CoV-2 RNA (RADHA) (NEGATIVE) Med Orders - Current: Current Medications Acetaminophen (Acetaminophen 325 Mg Tab) 650 mg PO Q4H PRN PRN Reason: Pain (Mild 1-3)/fever Albuterol/Ipratropium (Albuterol/Ipratropium 3.0-0.5 Mg/3 Ml Neb Soln) 3 ml NEB QIDRT [facility] Last Admin: 10/11/20 09:05 Dose: 3 ml Documented by: Aspirin (Aspirin 81 Mg Tab.Ec) 81 mg PO DAILY [facility] Last Admin: 10/11/20 09:43 Dose: 81 mg Documented by: Benzonatate (Benzonatate 100 Mg Cap) 100 mg PO Q8H PRN PRN Reason: Cough Citalopram Hydrobromide (Citalopram 20 Mg Tab) 20 mg PO DAILY [facility] Last Admin: 10/11/20 09:44 Dose: 20 mg Documented by: Enoxaparin Sodium (Enoxaparin 40 Mg/0.4 Ml Syringe) 40 mg SUBCUT DAILY [facility] Last Admin: 10/11/20 09:32 Dose: 40 mg Documented by: Guaifenesin/Phenylephrine HCl (Guaifenesin/Dextromethorphan 100-10 Mg/5 Ml Soln 5 Ml Cup) 5 ml PO Q4H PRN PRN Reason: Cough Dextrose/Water (Dextrose 5% In Water) 1,000 mls @ 75 mls/hr IV ASDIRECTED [facility] Last Admin: 10/11/20 09:25 Dose: 75 mls/hr Documented by: Levofloxacin (Levofloxacin 750 Mg Tab) 750 mg PO Q24H [facility] Last Admin: 10/10/20 18:54 Dose: 750 mg Documented by: Losartan Potassium (Losartan 25 Mg Tab) 25 mg PO DAILY [facility] Last Admin: 10/11/20 09:43 Dose: 25 mg Documented by: Ondansetron HCl (Ondansetron 4 Mg/2 Ml Sdv) 4 mg IV Q4H PRN PRN Reason: Nausea/Vomiting Prednisone (Prednisone 20 Mg Tab) 60 mg PO WITHBREAKFAST [facility] Last Admin: 10/11/20 06:05 Dose: 60 mg Documented by: Sodium Chloride (Sodium Chloride 0.9% 10 Ml Syringe) 10 ml FLUSH ASDIRECTED PRN PRN Reason: Keep Vein Open Last Admin: 10/10/20 15:53 Dose: 10 ml Documented by: Trazodone HCl (Trazodone 50 Mg Tab) 50 mg PO BEDTIME [facility] Discontinued Medications Albuterol/Ipratropium (Albuterol/Ipratropium 3.0-0.5 Mg/3 Ml Neb Soln) 3 ml NEB ONETIME ONE Stop: 10/10/20 14:45 Last Admin: 10/10/20 15:20 Dose: 3 ml Documented by: Albuterol/Ipratropium (Albuterol/Ipratropium 3.0-0.5 Mg/3 Ml Neb Soln) 3 ml NEB ONETIME ONE Stop: 10/10/20 16:12 Last Admin: 10/10/20 16:23 Dose: 3 ml Documented by: Albuterol/Ipratropium (Albuterol/Ipratropium 3.0-0.5 Mg/3 Ml Neb Soln) 3 ml NEB QID [facility] Last Admin: 10/10/20 20:23 Dose: 3 ml Documented by: Sodium Chloride (Normal Saline) 1,000 mls @ 100 mls/hr IV ASDIRECTED [facility] Last Admin: 10/11/20 06:12 Dose: 100 mls/hr Documented by: Lactated Ringer's (Ringers, Lactated) 500 mls @ 250 mls/hr IV .BOLUS ONE Stop: 10/10/20 21:37 Last Admin: 10/10/20 20:10 Dose: 250 mls/hr Documented by: Methylprednisolone Sodium Succinate (Methylprednisolone Sodium Succinate 125 Mg/2 Ml Sdv) 125 mg IVPUSH ONETIME ONE Stop: 10/10/20 14:45 Last Admin: 10/10/20 15:52 Dose: 125 mg Documented by: Trazodone HCl (Trazodone 50 Mg Tab) 50 mg PO BEDTIME PRN PRN Reason: Sleep Last Admin: 10/10/20 22:33 Dose: 50 mg Documented by: - Exam General: Alert, Oriented HEENT: EOMI Neck: Supple Lungs: Decreased Breath Sounds Cardiovascular: Regular Rate, Regular Rhythm, Tachycardia GI/Abdominal Exam: Soft, Non-Tender, No Distention Back Exam: Normal Inspection Extremities: Normal Inspection Skin: Warm, Dry, Intact Neurological: No New Focal Deficit Psy/Mental Status: Alert, Normal Affect, Anxious - Patient Data Lab Results Last 24 hrs: Laboratory Results - last 24 hr 10/10/20 10/10/20 10/10/20 Range/Units 15:01 15:01 15:01 WBC 8.93 (3.98-10.04) K/mm3 RBC 3.45 L (3.98-5.22) M/mm3 Hgb 9.4 L D (11.2-15.7) gm/dl Hct 29.4 L (34.1-44.9) % MCV 85.2 D (79.4-94.8) fl MCH 27.2 (25.6-32.2) pg MCHC 32.0 L (32.2-35.5) g/dl RDW Std Deviation 40.2 (36.4-46.3) fL Plt Count 457 H D (182-369) K/mm3 MPV 7.7 L (9.4-12.3) fl Neut % (Auto) 71.7 H (34.0-71.1) % Lymph % (Auto) 7.8 L (19.3-51.7) % Richardson % (Auto) 15.1 H (4.7-12.5) % Eos % (Auto) 4.3 (0.7-5.8) Baso % (Auto) 0.8 (0.1-1.2) % Neut # (Auto) 6.40 H (1.56-6.13) K/mm3 Lymph # (Auto) 0.70 L (1.18-3.74) K/mm3 Richardson # (Auto) 1.35 H (0.24-0.36) K/mm3 Eos # (Auto) 0.38 H (0.04-0.36) K/mm3 Baso # (Auto) 0.07 (0.01-0.08) K/mm3 Manual Slide Review Abnormal smear Puncture Site ABG pH (7.35-7.45) ABG pCO2 (35.0-45.0) mmHg ABG pO2 (80.0-100.0) mmHg ABG HCO3 (22.0-26.0) meq/L ABG O2 Saturation (96.0-97.0) % ABG Base Excess (-2-2.0) A-a Gradient mmHg O2 Delivery Device Oxygen Flow Rate FiO2 (21.00-100.00) % Sodium 128 L D (136-145) mEq/L Potassium 3.6 (3.5-5.1) mEq/L Chloride 93 L (98-107) mEq/L Carbon Dioxide 27 (21-32) mEq/L Anion Gap 11.6 (5-15) BUN 9 (7-18) mg/dL Creatinine 0.6 (0.55-1.02) mg/dL Est Cr Clr Drug Dosing 101.08 mL/min Estimated GFR (MDRD) > 60 (>60) mL/min BUN/Creatinine Ratio 15.0 (14-18) Glucose 158 H (70-99) mg/dL Lactic Acid 0.8 (0.4-2.0) mmol/L Calcium 8.4 L (8.5-10.1) mg/dL Total Bilirubin 0.4 (0.2-1.0) mg/dL AST 16 (15-37) U/L ALT 29 (14-59) U/L Alkaline Phosphatase 86 (46-116) U/L Troponin I < 0.017 (0.00-0.056) ng/mL C-Reactive Protein 25.0 H* (<1.0) mg/dL Total Protein 6.9 (6.4-8.2) g/dl Albumin 2.5 L (3.4-5.0) g/dl Globulin 4.4 gm/dL Albumin/Globulin Ratio 0.6 L (1-2) SARS-CoV-2 RNA (RADHA) (NEGATIVE) 10/10/20 10/10/20 10/10/20 Range/Units 15:30 15:39 19:50 WBC (3.98-10.04) K/mm3 RBC (3.98-5.22) M/mm3 Hgb (11.2-15.7) gm/dl Hct (34.1-44.9) % MCV (79.4-94.8) fl MCH (25.6-32.2) pg MCHC (32.2-35.5) g/dl RDW Std Deviation (36.4-46.3) fL Plt Count (182-369) K/mm3 MPV (9.4-12.3) fl Neut % (Auto) (34.0-71.1) % Lymph % (Auto) (19.3-51.7) % Richardson % (Auto) (4.7-12.5) % Eos % (Auto) (0.7-5.8) Baso % (Auto) (0.1-1.2) % Neut # (Auto) (1.56-6.13) K/mm3 Lymph # (Auto) (1.18-3.74) K/mm3 Richardson # (Auto) (0.24-0.36) K/mm3 Eos # (Auto) (0.04-0.36) K/mm3 Baso # (Auto) (0.01-0.08) K/mm3 Manual Slide Review Puncture Site Rt radial ABG pH 7.45 (7.35-7.45) ABG pCO2 40.3 (35.0-45.0) mmHg ABG pO2 71.0 L (80.0-100.0) mmHg ABG HCO3 27.6 H (22.0-26.0) meq/L ABG O2 Saturation 93.6 L (96.0-97.0) % ABG Base Excess 3.8 H (-2-2.0) A-a Gradient 107 mmHg O2 Delivery Device Nasal cannula Oxygen Flow Rate 3.0 FiO2 32.00 (21.00-100.00) % Sodium (136-145) mEq/L Potassium (3.5-5.1) mEq/L Chloride (98-107) mEq/L Carbon Dioxide (21-32) mEq/L Anion Gap (5-15) BUN (7-18) mg/dL Creatinine (0.55-1.02) mg/dL Est Cr Clr Drug Dosing mL/min Estimated GFR (MDRD) (>60) mL/min BUN/Creatinine Ratio (14-18) Glucose (70-99) mg/dL Lactic Acid 0.8 (0.4-2.0) mmol/L Calcium (8.5-10.1) mg/dL Total Bilirubin (0.2-1.0) mg/dL AST (15-37) U/L ALT (14-59) U/L Alkaline Phosphatase (46-116) U/L Troponin I (0.00-0.056) ng/mL C-Reactive Protein (<1.0) mg/dL Total Protein (6.4-8.2) g/dl Albumin (3.4-5.0) g/dl Globulin gm/dL Albumin/Globulin Ratio (1-2) SARS-CoV-2 RNA (RADHA) Negative (NEGATIVE) 10/10/20 10/11/20 10/11/20 Range/Units 22:00 05:15 05:15 WBC 5.89 (3.98-10.04) K/mm3 RBC 3.32 L (3.98-5.22) M/mm3 Hgb 9.2 L (11.2-15.7) gm/dl Hct 28.4 L (34.1-44.9) % MCV 85.5 (79.4-94.8) fl MCH 27.7 (25.6-32.2) pg MCHC 32.4 (32.2-35.5) g/dl RDW Std Deviation 40.0 (36.4-46.3) fL Plt Count 449 H (182-369) K/mm3 MPV 7.6 L (9.4-12.3) fl Neut % (Auto) 82.5 H (34.0-71.1) % Lymph % (Auto) 9.2 L (19.3-51.7) % Richardson % (Auto) 7.8 (4.7-12.5) % Eos % (Auto) 0 L (0.7-5.8) Baso % (Auto) 0.3 (0.1-1.2) % Neut # (Auto) 4.86 (1.56-6.13) K/mm3 Lymph # (Auto) 0.54 L (1.18-3.74) K/mm3 Richardson # (Auto) 0.46 H (0.24-0.36) K/mm3 Eos # (Auto) 0.00 L (0.04-0.36) K/mm3 Baso # (Auto) 0.02 (0.01-0.08) K/mm3 Manual Slide Review Normal smear Puncture Site ABG pH (7.35-7.45) ABG pCO2 (35.0-45.0) mmHg ABG pO2 (80.0-100.0) mmHg ABG HCO3 (22.0-26.0) meq/L ABG O2 Saturation (96.0-97.0) % ABG Base Excess (-2-2.0) A-a Gradient mmHg O2 Delivery Device Oxygen Flow Rate FiO2 (21.00-100.00) % Sodium 140 D (136-145) mEq/L Potassium 4.1 (3.5-5.1) mEq/L Chloride 102 (98-107) mEq/L Carbon Dioxide 29 (21-32) mEq/L Anion Gap 13.1 (5-15) BUN 7 (7-18) mg/dL Creatinine 0.5 L (0.55-1.02) mg/dL Est Cr Clr Drug Dosing 121.30 mL/min Estimated GFR (MDRD) > 60 (>60) mL/min BUN/Creatinine Ratio 14.0 (14-18) Glucose 136 H (70-99) mg/dL Lactic Acid 1.8 (0.4-2.0) mmol/L Calcium 8.8 (8.5-10.1) mg/dL Total Bilirubin (0.2-1.0) mg/dL AST (15-37) U/L ALT (14-59) U/L Alkaline Phosphatase (46-116) U/L Troponin I (0.00-0.056) ng/mL C-Reactive Protein (<1.0) mg/dL Total Protein (6.4-8.2) g/dl Albumin (3.4-5.0) g/dl Globulin gm/dL Albumin/Globulin Ratio (1-2) SARS-CoV-2 RNA (RADHA) (NEGATIVE) Result Diagrams: 10/11/20 05:15 10/11/20 05:15 Sepsis Event Note - Evaluation Sepsis Screening Result: Possible Sepsis Risk - Focused Exam Vital Signs: Vital Signs Temp Temp Pulse Resp BP BP Pulse Ox 10/11/20 09:43 156/76 H 10/11/20 09:05 10/11/20 08:10 97.9 F 95 18 156/76 H 91 L 10/11/20 06:11 10/11/20 04:42 98.2 F 95 14 139/76 92 L 10/10/20 23:56 98.0 F 15 132/64 95 Pulse Ox 10/11/20 09:43 10/11/20 09:05 92 L 10/11/20 08:10 10/11/20 06:11 95 10/11/20 04:42 10/10/20 23:56 - Problem List Review Problem List Initiated/Reviewed/Updated: Yes - My Orders Last 24 Hours: My Active Orders 10/10/20 Dinner Regular Diet [DIET] 10/10/20 17:39 Height and Weight [RC] 0600 Intake and Output [RC] 04,16 Up ad Karli [RC] BID VTE/DVT Education [RC] DAILY Vital Signs [RC] Q4HR Acetaminophen [TylenoL] 650 mg PO Q4H PRN Ondansetron [Zofran] 4 mg IV Q4H PRN Resuscitation Status Routine 10/10/20 17:41 RT Aerosol Therapy [RC] ASDIRECTED Benzonatate [Tessalon Perles] 100 mg PO Q8H PRN Dextromethorphan/guaiFENesin [Robitussin DM] 5 ml PO Q4H PRN 10/10/20 18:30 levoFLOXacin [Levaquin] 750 mg PO Q24H 10/11/20 06:00 Albuterol/Ipratropium [DuoNeb 3.0-0.5 MG/3 ML] 3 ml NEB QIDRT 10/11/20 07:00 predniSONE 60 mg PO WITHBREAKFAST 10/11/20 07:30 Dextrose 5% in Water 1,000 ml IV ASDIRECTED 10/11/20 09:00 Enoxaparin [Lovenox] 40 mg SUBCUT DAILY 10/11/20 09:15 Aspirin [Halfprin] 81 mg PO DAILY Citalopram [Celexa] 20 mg PO DAILY Losartan [Cozaar] 25 mg PO DAILY 10/11/20 13:00 SODIUM,NA [CHEM] Routine 10/11/20 21:00 traZODone 50 mg PO BEDTIME - Plan Plan:: Assessment: This is a 65F with PMHx of oxygen dependent COPD (On 2 liters of oxygen at nightime) presenting for evaluation of SOB, and productive cough. She denies chest pain. She presented to ED and was noted to be hypoxic. She was given duonebs+solumedrol and admitted for further evaluation. She states nebulizer has helped with respiratory symptoms. 1. Acute COPD exacerbation; acute on chronic hypoxia 2. Hx of HTN 3. Hx of insomnia 4. Suspected hypovolemic hyponatremia/hypochloremia; resolved 5. Normocytic anemia 6. Hx of depression and anxiety PLan -transition to prednisone -levaquin -scheduled nebs -RT consult -prn sonia guerra -IVF->switch to D5W repeat sodium this afternoon -repeat BMP in AM -resume lexapro Code-Full DVT ppx-lovenox Iprkkhwkx-6-0 days
[2020-10-11] MEDS: ROFLUMILAST 500 MCG PO SCH (14:00)
[2020-10-11] MEDS: Levofloxacin 750 MG Tab PO SCH (18:36)
[2020-10-11] MEDS ORDERED: traZODone 50 MG Tab PO SCH (21:00)
[2020-10-11] MEDS ORDERED: traZODone 50 MG Tab PO PRN (21:02)
[2020-10-12] MEDS: Albuterol/Ipratropium 3.0-0.5 MG/3 ML Neb Soln NEB SCH ×4 (05:25→21:25)
[2020-10-12] MEDS: predniSONE 20 MG Tab PO SCH (06:46)
[2020-10-12] MEDS: Aspirin 81 MG Tab.EC PO SCH (08:04)
[2020-10-12] MEDS: Enoxaparin 40 MG/0.4 ML Syringe SUBCUT SCH (08:04)
[2020-10-12] MEDS: Losartan 25 MG Tab PO SCH (08:04)
[2020-10-12] MEDS: Citalopram 20 MG Tab PO SCH (08:05)
[2020-10-12] MEDS: ROFLUMILAST 500 MCG PO SCH (08:05)
--- NOTE | 2020-10-12 09:25 | PCM.PN ---
- General Info Date of Service: 10/12/20 Admission Dx/Problem (Free Text): Admission Diagnosis/Problem Admission Diagnosis/Problem acute on chronic hypoxic respiratory failure in the setting of acute COPD exacerbation. Subjective Update: No acute events overnight. No specific nursing concerns. Patient states that she feels rather status quo in comparison to when she came in. Feels as if she cannot walk around the room without having to sit down and catch her breath. She denies any fever. No cough or sputum production. Has remained on oxygen at all times without ability to wean. - Patient Data Vitals - Most Recent: Last Vital Signs Temp 97.9 F 10/12/20 08:00 Pulse 96 10/12/20 08:00 Resp 20 10/12/20 08:00 BP 161/80 H 10/12/20 08:04 Pulse Ox 92 L 10/12/20 08:00 Weight - Most Recent: 177 lb 4.8 oz I&O - Last 24 Hours: Intake & Output 10/11/20 10/12/20 10/12/20 22:59 06:59 14:59 Intake Total 2815 800 Output Total 1050 1650 Balance 1765 -850 Lab Results Last 24 Hours: Laboratory Results - last 24 hr 10/11/20 10/11/20 10/11/20 Range/Units 13:04 13:04 17:43 WBC (3.98-10.04) K/mm3 RBC (3.98-5.22) M/mm3 Hgb (11.2-15.7) gm/dl Hct (34.1-44.9) % MCV (79.4-94.8) fl MCH (25.6-32.2) pg MCHC (32.2-35.5) g/dl RDW Std Deviation (36.4-46.3) fL Plt Count (182-369) K/mm3 MPV (9.4-12.3) fl Sodium 139 141 (136-145) mEq/L Potassium (3.5-5.1) mEq/L Chloride (98-107) mEq/L Carbon Dioxide (21-32) mEq/L Anion Gap (5-15) BUN (7-18) mg/dL Creatinine (0.55-1.02) mg/dL Est Cr Clr Drug Dosing mL/min Estimated GFR (MDRD) (>60) mL/min BUN/Creatinine Ratio (14-18) Glucose (70-99) mg/dL Lactic Acid 1.3 (0.4-2.0) mmol/L Calcium (8.5-10.1) mg/dL 10/12/20 10/12/20 Range/Units 05:52 05:52 WBC 12.89 H (3.98-10.04) K/mm3 RBC 3.76 L (3.98-5.22) M/mm3 Hgb 10.2 L (11.2-15.7) gm/dl Hct 32.7 L (34.1-44.9) % MCV 87.0 (79.4-94.8) fl MCH 27.1 (25.6-32.2) pg MCHC 31.2 L (32.2-35.5) g/dl RDW Std Deviation 42.3 (36.4-46.3) fL Plt Count 542 H D (182-369) K/mm3 MPV 7.8 L (9.4-12.3) fl Sodium 142 (136-145) mEq/L Potassium 3.5 (3.5-5.1) mEq/L Chloride 103 (98-107) mEq/L Carbon Dioxide 31 (21-32) mEq/L Anion Gap 11.5 (5-15) BUN 9 (7-18) mg/dL Creatinine 0.7 (0.55-1.02) mg/dL Est Cr Clr Drug Dosing 86.64 mL/min Estimated GFR (MDRD) > 60 (>60) mL/min BUN/Creatinine Ratio 12.9 L (14-18) Glucose 105 H (70-99) mg/dL Lactic Acid (0.4-2.0) mmol/L Calcium 9.1 (8.5-10.1) mg/dL [facility] Results Last 24 Hours: Microbiology 10/10/20 15:10 Blood Culture - Preliminary Blood - Venous - Lab Draw 10/10/20 15:01 Blood Culture - Preliminary Blood - Venous - Lab Draw Med Orders - Current: Current Medications Acetaminophen (Acetaminophen 325 Mg Tab) 650 mg PO Q4H PRN PRN Reason: Pain (Mild 1-3)/fever Albuterol/Ipratropium (Albuterol/Ipratropium 3.0-0.5 Mg/3 Ml Neb Soln) 3 ml NEB QIDRT [facility] Last Admin: 10/12/20 05:25 Dose: 3 ml Documented by: Aspirin (Aspirin 81 Mg Tab.Ec) 81 mg PO DAILY [facility] Last Admin: 10/12/20 08:04 Dose: 81 mg Documented by: Benzonatate (Benzonatate 100 Mg Cap) 100 mg PO Q8H PRN PRN Reason: Cough Citalopram Hydrobromide (Citalopram 20 Mg Tab) 20 mg PO DAILY [facility] Last Admin: 10/12/20 08:05 Dose: 20 mg Documented by: Enoxaparin Sodium (Enoxaparin 40 Mg/0.4 Ml Syringe) 40 mg SUBCUT DAILY [facility] Last Admin: 10/12/20 08:04 Dose: 40 mg Documented by: Guaifenesin/Phenylephrine HCl (Guaifenesin/Dextromethorphan 100-10 Mg/5 Ml Soln 5 Ml Cup) 5 ml PO Q4H PRN PRN Reason: Cough Levofloxacin (Levofloxacin 750 Mg Tab) 750 mg PO Q24H [facility] Last Admin: 10/11/20 18:36 Dose: 750 mg Documented by: Losartan Potassium (Losartan 25 Mg Tab) 25 mg PO DAILY [facility] Last Admin: 10/12/20 08:04 Dose: 25 mg Documented by: Methylprednisolone Sodium Succinate (Methylprednisolone Sodium Succinate 40 Mg/1 Ml Sdv) 40 mg IVPUSH Q8H [facility] Roflumilast [ Daliresp] 500 Mcg Tablet Own Med 0 mcg PO DAILY [facility] Last Admin: 10/12/20 08:05 Dose: 500 mcg Documented by: Ondansetron HCl (Ondansetron 4 Mg/2 Ml Sdv) 4 mg IV Q4H PRN PRN Reason: Nausea/Vomiting Trazodone HCl (Trazodone 50 Mg Tab) 50 mg PO ONETIME PRN PRN Reason: Sleep Last Admin: 10/11/20 21:18 Dose: 50 mg Documented by: Discontinued Medications Albuterol/Ipratropium (Albuterol/Ipratropium 3.0-0.5 Mg/3 Ml Neb Soln) 3 ml NEB ONETIME ONE Stop: 10/10/20 14:45 Last Admin: 10/10/20 15:20 Dose: 3 ml Documented by: Albuterol/Ipratropium (Albuterol/Ipratropium 3.0-0.5 Mg/3 Ml Neb Soln) 3 ml NEB ONETIME ONE Stop: 10/10/20 16:12 Last Admin: 10/10/20 16:23 Dose: 3 ml Documented by: Albuterol/Ipratropium (Albuterol/Ipratropium 3.0-0.5 Mg/3 Ml Neb Soln) 3 ml NEB QID [facility] Last Admin: 10/10/20 20:23 Dose: 3 ml Documented by: Sodium Chloride (Normal Saline) 1,000 mls @ 100 mls/hr IV ASDIRECTED [facility] Last Admin: 10/11/20 06:12 Dose: 100 mls/hr Documented by: Lactated Ringer's (Ringers, Lactated) 500 mls @ 250 mls/hr IV .BOLUS ONE Stop: 10/10/20 21:37 Last Admin: 10/10/20 20:10 Dose: 250 mls/hr Documented by: Dextrose/Water (Dextrose 5% In Water) 1,000 mls @ 125 mls/hr IV ASDIRECTED [facility] Stop: 10/11/20 17:00 Last Admin: 10/11/20 09:25 Dose: 75 mls/hr Documented by: Dextrose/Water (Dextrose 5% In Water) 1,000 mls @ 150 mls/hr IV ASDIRECTED [facility] Stop: 10/11/20 17:15 Methylprednisolone Sodium Succinate (Methylprednisolone Sodium Succinate 125 Mg/2 Ml Sdv) 125 mg IVPUSH ONETIME ONE Stop: 10/10/20 14:45 Last Admin: 10/10/20 15:52 Dose: 125 mg Documented by: Prednisone (Prednisone 20 Mg Tab) 60 mg PO WITHBREAKFAST [facility] Last Admin: 10/12/20 06:46 Dose: 60 mg Documented by: Sodium Chloride (Sodium Chloride 0.9% 10 Ml Syringe) 10 ml FLUSH ASDIRECTED PRN PRN Reason: Keep Vein Open Last Admin: 10/10/20 15:53 Dose: 10 ml Documented by: Trazodone HCl (Trazodone 50 Mg Tab) 50 mg PO BEDTIME PRN PRN Reason: Sleep Last Admin: 10/10/20 22:33 Dose: 50 mg Documented by: Trazodone HCl (Trazodone 50 Mg Tab) 50 mg PO BEDTIME [facility] - Exam Quality Assessment: Supplemental Oxygen General: Cooperative, No Acute Distress Neck: Supple Lungs: Clear to Auscultation, Other (Decreased breath sounds overall, no wheezing rales or rhonchi. Breathing through pursed lips with 6-7 word conversational dyspnea) Cardiovascular: Regular Rate GI/Abdominal Exam: Normal Bowel Sounds, Soft, Non-Tender Extremities: Normal Inspection Skin: Warm, Dry Neurological: No New Focal Deficit - Patient Data Lab Results Last 24 hrs: Laboratory Results - last 24 hr 10/11/20 10/11/20 10/11/20 Range/Units 13:04 13:04 17:43 WBC (3.98-10.04) K/mm3 RBC (3.98-5.22) M/mm3 Hgb (11.2-15.7) gm/dl Hct (34.1-44.9) % MCV (79.4-94.8) fl MCH (25.6-32.2) pg MCHC (32.2-35.5) g/dl RDW Std Deviation (36.4-46.3) fL Plt Count (182-369) K/mm3 MPV (9.4-12.3) fl Sodium 139 141 (136-145) mEq/L Potassium (3.5-5.1) mEq/L Chloride (98-107) mEq/L Carbon Dioxide (21-32) mEq/L Anion Gap (5-15) BUN (7-18) mg/dL Creatinine (0.55-1.02) mg/dL Est Cr Clr Drug Dosing mL/min Estimated GFR (MDRD) (>60) mL/min BUN/Creatinine Ratio (14-18) Glucose (70-99) mg/dL Lactic Acid 1.3 (0.4-2.0) mmol/L Calcium (8.5-10.1) mg/dL 10/12/20 10/12/20 Range/Units 05:52 05:52 WBC 12.89 H (3.98-10.04) K/mm3 RBC 3.76 L (3.98-5.22) M/mm3 Hgb 10.2 L (11.2-15.7) gm/dl Hct 32.7 L (34.1-44.9) % MCV 87.0 (79.4-94.8) fl MCH 27.1 (25.6-32.2) pg MCHC 31.2 L (32.2-35.5) g/dl RDW Std Deviation 42.3 (36.4-46.3) fL Plt Count 542 H D (182-369) K/mm3 MPV 7.8 L (9.4-12.3) fl Sodium 142 (136-145) mEq/L Potassium 3.5 (3.5-5.1) mEq/L Chloride 103 (98-107) mEq/L Carbon Dioxide 31 (21-32) mEq/L Anion Gap 11.5 (5-15) BUN 9 (7-18) mg/dL Creatinine 0.7 (0.55-1.02) mg/dL Est Cr Clr Drug Dosing 86.64 mL/min Estimated GFR (MDRD) > 60 (>60) mL/min BUN/Creatinine Ratio 12.9 L (14-18) Glucose 105 H (70-99) mg/dL Lactic Acid (0.4-2.0) mmol/L Calcium 9.1 (8.5-10.1) mg/dL Result Diagrams: 10/12/20 05:52 10/12/20 05:52 [facility] Results Last 24 hrs: Microbiology 10/10/20 15:10 Blood Culture - Preliminary Blood - Venous - Lab Draw 10/10/20 15:01 Blood Culture - Preliminary Blood - Venous - Lab Draw Sepsis Event Note - Evaluation Sepsis Screening Result: Possible Sepsis Risk - Focused Exam Vital Signs: Vital Signs Temp Pulse Resp BP Pulse Ox Pulse Ox 10/12/20 08:04 161/80 H 10/12/20 08:00 97.9 F 96 20 161/80 H 92 L 10/12/20 05:26 91 L 10/12/20 04:13 97.9 F 101 H 20 157/73 H 91 L - Problem List Review Problem List Initiated/Reviewed/Updated: Yes - My Orders Last 24 Hours: My Active Orders 10/12/20 09:30 methylPREDNISolone Sod Succ [Solu-MEDROL] 40 mg IVPUSH Q8H - Plan Plan:: Assessment: This is a 65F with PMHx of oxygen dependent COPD (On 2 liters of oxygen at nightime) presenting for evaluation of SOB, and productive cough. S 1. Acute on chronic hypoxemic respiratory failure secondary to acute COPD exa cerbation 2. Hx of HTN 3. Hx of insomnia 4. Suspected hypovolemic hyponatremia/hypochloremia; resolved 5. Normocytic anemia 6. Hx of depression and anxiety PLan -Solu-Medrol 40 mg every 8 hours. -Daily ambulation saturation trials. Goal will be 88 to 94% on 2 to 4 L of supplemental oxygen before discharge. -Senna spirometry encouraged. -levaquin to continue for total of 5 days. -scheduled nebs -RT consult -prn sonia guerra Code-Full DVT ppx-lovenox
[2020-10-12] MEDS ORDERED: Levofloxacin 500 MG Tab PO SCH (10:58)
[2020-10-12] MEDS: methylPREDNISolone Sodium Succinate 40 MG/1 ML SDV IVPUSH SCH ×2 (12:19→20:40)
[2020-10-12] MEDS: Levofloxacin 500 MG Tab PO SCH (17:39)
[2020-10-12] MEDS ORDERED: traZODone 50 MG Tab PO ONE (20:26)
[2020-10-13] MEDS: methylPREDNISolone Sodium Succinate 40 MG/1 ML SDV IVPUSH SCH ×3 (05:27→20:40)
[2020-10-13] MEDS: Albuterol/Ipratropium 3.0-0.5 MG/3 ML Neb Soln NEB SCH ×5 (05:47→21:12)
--- NOTE | 2020-10-13 08:50 | PCM.PN ---
- General Info Date of Service: 10/13/20 Admission Dx/Problem (Free Text): Admission Diagnosis/Problem Admission Diagnosis/Problem acute on chronic hypoxic respiratory failure in the setting of acute COPD exacerbation. Subjective Update: No acute events overnight. No specific new nursing concerns. States that she is doing well at rest however when she gets up to go to the bathroom and her oxygenation drops down to 83% and she feels very short of breath. Denies any audible wheezing, fever, constitutional symptoms. - Patient Data Vitals - Most Recent: Last Vital Signs Temp 97.9 F 10/13/20 08:02 Pulse 82 10/13/20 08:02 Resp 20 10/13/20 08:02 BP 164/88 H 10/13/20 08:02 Pulse Ox 98 10/13/20 08:02 Weight - Most Recent: 179 lb 4.8 oz I&O - Last 24 Hours: Intake & Output 10/12/20 10/13/20 10/13/20 22:59 06:59 14:59 Intake Total 1640 400 Output Total 1000 1000 Balance 640 -600 Lab Results Last 24 Hours: Laboratory Results - last 24 hr 10/13/20 Range/Units 05:48 WBC 12.46 H (3.98-10.04) K/mm3 RBC 3.61 L (3.98-5.22) M/mm3 Hgb 9.9 L (11.2-15.7) gm/dl Hct 31.3 L (34.1-44.9) % MCV 86.7 (79.4-94.8) fl MCH 27.4 (25.6-32.2) pg MCHC 31.6 L (32.2-35.5) g/dl RDW Std Deviation 41.9 (36.4-46.3) fL Plt Count 517 H (182-369) K/mm3 MPV 7.6 L (9.4-12.3) fl Neut % (Auto) 83.6 H (34.0-71.1) % Lymph % (Auto) 8.2 L (19.3-51.7) % [place] % (Auto) 7.5 (4.7-12.5) % Eos % (Auto) 0 L (0.7-5.8) Baso % (Auto) 0.2 (0.1-1.2) % Neut # (Auto) 10.42 H (1.56-6.13) K/mm3 Lymph # (Auto) 1.02 L (1.18-3.74) K/mm3 [place] # (Auto) 0.94 H (0.24-0.36) K/mm3 Eos # (Auto) 0.00 L (0.04-0.36) K/mm3 Baso # (Auto) 0.02 (0.01-0.08) K/mm3 Manual Slide Review Abnormal smear [facility] Results Last 24 Hours: Microbiology 10/10/20 15:10 Blood Culture - Preliminary Blood - Venous - Lab Draw 10/10/20 15:01 Blood Culture - Preliminary Blood - Venous - Lab Draw Med Orders - Current: Current Medications Acetaminophen (Acetaminophen 325 Mg Tab) 650 mg PO Q4H PRN PRN Reason: Pain (Mild 1-3)/fever Last Admin: 10/12/20 11:52 Dose: 650 mg Documented by: Aspirin (Aspirin 81 Mg Tab.Ec) 81 mg PO DAILY [facility] Last Admin: 10/12/20 08:04 Dose: 81 mg Documented by: Benzonatate (Benzonatate 100 Mg Cap) 100 mg PO Q8H PRN PRN Reason: Cough Citalopram Hydrobromide (Citalopram 20 Mg Tab) 20 mg PO DAILY [facility] Last Admin: 10/12/20 08:05 Dose: 20 mg Documented by: Enoxaparin Sodium (Enoxaparin 40 Mg/0.4 Ml Syringe) 40 mg SUBCUT DAILY [facility] Last Admin: 10/12/20 08:04 Dose: 40 mg Documented by: Guaifenesin/Phenylephrine HCl (Guaifenesin/Dextromethorphan 100-10 Mg/5 Ml Soln 5 Ml Cup) 5 ml PO Q4H PRN PRN Reason: Cough Levofloxacin (Levofloxacin 500 Mg Tab) 500 mg PO Q24H [facility] Stop: 10/14/20 18:31 Last Admin: 10/12/20 17:39 Dose: 500 mg Documented by: Losartan Potassium (Losartan 25 Mg Tab) 25 mg PO DAILY [facility] Last Admin: 10/12/20 08:04 Dose: 25 mg Documented by: Methylprednisolone Sodium Succinate (Methylprednisolone Sodium Succinate 40 Mg/1 Ml Sdv) 40 mg IVPUSH Q8H [facility] Last Admin: 10/13/20 05:27 Dose: 40 mg Documented by: Roflumilast [ Daliresp] 500 Mcg Tablet Own Med 0 mcg PO DAILY [facility] Last Admin: 10/12/20 08:05 Dose: 500 mcg Documented by: Ondansetron HCl (Ondansetron 4 Mg/2 Ml Sdv) 4 mg IV Q4H PRN PRN Reason: Nausea/Vomiting Trazodone HCl (Trazodone 50 Mg Tab) 50 mg PO BEDTIME [facility] Discontinued Medications Albuterol/Ipratropium (Albuterol/Ipratropium 3.0-0.5 Mg/3 Ml Neb Soln) 3 ml NEB ONETIME ONE Stop: 10/10/20 14:45 Last Admin: 10/10/20 15:20 Dose: 3 ml Documented by: Albuterol/Ipratropium (Albuterol/Ipratropium 3.0-0.5 Mg/3 Ml Neb Soln) 3 ml NEB ONETIME [facility] Stop: 10/10/20 16:12 Last Admin: 10/10/20 16:23 Dose: 3 ml Documented by: Albuterol/Ipratropium (Albuterol/Ipratropium 3.0-0.5 Mg/3 Ml Neb Soln) 3 ml NEB QID [facility] Last Admin: 10/10/20 20:23 Dose: 3 ml Documented by: Albuterol/Ipratropium (Albuterol/Ipratropium 3.0-0.5 Mg/3 Ml Neb Soln) 3 ml NEB QIDRT [facility] Last Admin: 10/13/20 05:47 Dose: 3 ml Documented by: Sodium Chloride (Normal Saline) 1,000 mls @ 100 mls/hr IV ASDIRECTED [facility] Last Admin: 10/11/20 06:12 Dose: 100 mls/hr Documented by: Lactated Ringer's (Ringers, Lactated) 500 mls @ 250 mls/hr IV .BOLUS ONE Stop: 10/10/20 21:37 Last Admin: 10/10/20 20:10 Dose: 250 mls/hr Documented by: Dextrose/Water (Dextrose 5% In Water) 1,000 mls @ 125 mls/hr IV ASDIRECTED [facility] Stop: 10/11/20 17:00 Last Admin: 10/11/20 09:25 Dose: 75 mls/hr Documented by: Dextrose/Water (Dextrose 5% In Water) 1,000 mls @ 150 mls/hr IV ASDIRECTED [facility] Stop: 10/11/20 17:15 Levofloxacin (Levofloxacin 750 Mg Tab) 750 mg PO Q24H [facility] Last Admin: 10/11/20 18:36 Dose: 750 mg Documented by: Levofloxacin (Levofloxacin 500 Mg Tab) 500 mg PO Q24H [facility] Stop: 10/12/20 18:31 Last Admin: 10/12/20 12:05 Dose: Not Given Documented by: Methylprednisolone Sodium Succinate (Methylprednisolone Sodium Succinate 125 Mg/2 Ml Sdv) 125 mg IVPUSH ONETIME [facility] Stop: 10/10/20 14:45 Last Admin: 10/10/20 15:52 Dose: 125 mg Documented by: Prednisone (Prednisone 20 Mg Tab) 60 mg PO WITHBREAKFAST [facility] Last Admin: 10/12/20 06:46 Dose: 60 mg Documented by: Sodium Chloride (Sodium Chloride 0.9% 10 Ml Syringe) 10 ml FLUSH ASDIRECTED PRN PRN Reason: Keep Vein Open Last Admin: 10/10/20 15:53 Dose: 10 ml Documented by: Trazodone HCl (Trazodone 50 Mg Tab) 50 mg PO BEDTIME PRN PRN Reason: Sleep Last Admin: 10/10/20 22:33 Dose: 50 mg Documented by: Trazodone HCl (Trazodone 50 Mg Tab) 50 mg PO BEDTIME [facility] Trazodone HCl (Trazodone 50 Mg Tab) 50 mg PO ONETIME PRN PRN Reason: Sleep Last Admin: 10/11/20 21:18 Dose: 50 mg Documented by: Trazodone HCl (Trazodone 50 Mg Tab) 50 mg PO ONETIME [facility] Stop: 10/12/20 20:27 Last Admin: 10/12/20 20:39 Dose: 50 mg Documented by: - Exam Quality Assessment: Supplemental Oxygen General: Alert, No Acute Distress Lungs: Clear to Auscultation, Normal Respiratory Effort, Other (Ambulation saturation trial, which I conducted myself, was notable for significant decrease in O2 down to 84% on 2 L of supplemental oxygen after 60 feet or less. Symptomatic with pursed breathing and she felt uncomfortable. Wanted to return back to her room at that point.) Cardiovascular: Regular Rate, Regular Rhythm GI/Abdominal Exam: Normal Bowel Sounds, Soft, Non-Tender Extremities: Normal Inspection, Normal Range of Motion Skin: Warm Neurological: No New Focal Deficit - Patient Data Lab Results Last 24 hrs: Laboratory Results - last 24 hr 10/13/20 Range/Units 05:48 WBC 12.46 H (3.98-10.04) K/mm3 RBC 3.61 L (3.98-5.22) M/mm3 Hgb 9.9 L (11.2-15.7) gm/dl Hct 31.3 L (34.1-44.9) % MCV 86.7 (79.4-94.8) fl MCH 27.4 (25.6-32.2) pg MCHC 31.6 L (32.2-35.5) g/dl RDW Std Deviation 41.9 (36.4-46.3) fL Plt Count 517 H (182-369) K/mm3 MPV 7.6 L (9.4-12.3) fl Neut % (Auto) 83.6 H (34.0-71.1) % Lymph % (Auto) 8.2 L (19.3-51.7) % [place] % (Auto) 7.5 (4.7-12.5) % Eos % (Auto) 0 L (0.7-5.8) Baso % (Auto) 0.2 (0.1-1.2) % Neut # (Auto) 10.42 H (1.56-6.13) K/mm3 Lymph # (Auto) 1.02 L (1.18-3.74) K/mm3 [place] # (Auto) 0.94 H (0.24-0.36) K/mm3 Eos # (Auto) 0.00 L (0.04-0.36) K/mm3 Baso # (Auto) 0.02 (0.01-0.08) K/mm3 Manual Slide Review Abnormal smear Result Diagrams: 10/13/20 05:48 10/12/20 05:52 [facility] Results Last 24 hrs: Microbiology 10/10/20 15:10 Blood Culture - Preliminary Blood - Venous - Lab Draw 10/10/20 15:01 Blood Culture - Preliminary Blood - Venous - Lab Draw Sepsis Event Note - Evaluation Sepsis Screening Result: Possible Sepsis Risk - Focused Exam Vital Signs: Vital Signs Temp Pulse Resp BP Pulse Ox Pulse Ox 10/13/20 08:02 97.9 F 82 20 164/88 H 98 10/13/20 05:48 91 L 10/13/20 05:35 97.9 F 10/13/20 05:33 91 16 147/96 H 93 L 10/13/20 00:03 97.9 F 107 H 16 162/93 H 91 L 10/12/20 21:26 94 L - Problem List Review Problem List Initiated/Reviewed/Updated: Yes - My Orders Last 24 Hours: My Active Orders 10/12/20 12:30 methylPREDNISolone Sod Succ [Solu-MEDROL] 40 mg IVPUSH Q8H 10/12/20 16:39 Acapella [RT Chest Physiotherapy] [RC] ASDIRECTED RT Incentive Spirometry [RC] ASDIRECTED 10/13/20 08:47 RT Aerosol Therapy [RC] ASDIRECTED 10/13/20 10:00 Albuterol/Ipratropium [DuoNeb 3.0-0.5 MG/3 ML] 3 ml NEB Q4HRRT 10/13/20 21:00 traZODone 50 mg PO BEDTIME - Plan Plan:: Assessment: This is a 65F with PMHx of oxygen dependent COPD (On 2 liters of oxygen at nightime) presenting for evaluation of SOB, and productive cough. S 1. Acute on chronic hypoxemic respiratory failure secondary to acute COPD exacerbation 2. Hx of HTN 3. Hx of insomnia 4. Suspected hypovolemic hyponatremia/hypochloremia; resolved 5. Normocytic anemia 6. Hx of depression and anxiety PLan -Solu-Medrol 40 mg every 8 hours. -Daily ambulation saturation trials. Goal will be 88 to 94% on 2L L of supplemental oxygen before discharge. -Senna spirometry encouraged. -levaquin to continue for total of 5 days. -scheduled nebs every 4 hours. -RT consult -prn sonia guerra Code-Full DVT ppx-lovenox
[2020-10-13] MEDS: Aspirin 81 MG Tab.EC PO SCH (09:11)
[2020-10-13] MEDS: Losartan 25 MG Tab PO SCH (09:11)
[2020-10-13] MEDS: Citalopram 20 MG Tab PO SCH (09:11)
[2020-10-13] MEDS: Enoxaparin 40 MG/0.4 ML Syringe SUBCUT SCH (09:11)
[2020-10-13] MEDS: ROFLUMILAST 500 MCG PO SCH (09:21)
[2020-10-13] MEDS: Levofloxacin 500 MG Tab PO SCH (18:31)
[2020-10-13] MEDS ORDERED: traZODone 50 MG Tab PO SCH (21:00)
[2020-10-14] MEDS: Albuterol/Ipratropium 3.0-0.5 MG/3 ML Neb Soln NEB SCH ×3 (02:58→11:07)
[2020-10-14] MEDS: methylPREDNISolone Sodium Succinate 40 MG/1 ML SDV IVPUSH SCH (05:28)
--- NOTE | 2020-10-14 08:42 | PCM.DCSUM1 ---
Discharge Summary - Hospital Course Free Text/Narrative:: Assessment: This is a 65F with PMHx of oxygen dependent COPD (On 2 liters of oxygen at nightime) presenting for evaluation of SOB, and productive cough. S 1. Acute on chronic hypoxemic respiratory failure secondary to acute COPD exacerbation 2. Hx of HTN 3. Hx of insomnia 4. Suspected hypovolemic hyponatremia/hypochloremia; resolved 5. Normocytic anemia 6. Hx of depression and anxiety Patient was treated with high-dose Solu-Medrol from the time of admission up until the time of discharge in which she was placed on a prolonged prednisone taper. Patient was initially receiving 60 mg of Solu-Medrol every 6 hours. Patient will continue to take a prednisone taper starting at 60 mg p.o. for 5 days and then tapering off 10 mg every 5 days until completed or otherwise manipulated by upcoming pulmonology consultation. The patient is continue to receive supplemental oxygen via nasal cannula in order to sustain oxygen saturations between 88 and 94%. At rest she is comfortable without conversational dyspnea on 2 L nasal cannula. After 60 to 80 feet of ambulation the patient will require increase in O2 flow up to 4 L/min. The patient was covered with empiric levofloxacin for the remote possibility of infectious bronchitis since the time of admission. This was started by another provider and was continued by me. Recommend full pulmonary function test and echocardiogram. I suspect high degree of pulmonary hypertension. Will defer to pulmonology consultation. Patient has been instructed to continue scheduled nebulizer treatments with duo nebs every 4-6 hours and to continue taking her maintenance therapies as previously indicated. Patient was receiving Lovenox for DVT prophylaxis while in the hospital. HPI Initial Comments: This is a 65F with PMHx of oxygen dependent COPD (On 2 liters of oxygen at nightime) presenting for evaluation of SOB. The patient endorses SOB and productive cough. She denies chest pain. She denies tobacco use. She has had worsening SOB over the last 4 days. She denies fever, nausea, vomiting, abdominal pain. She presented to ED and was noted to be hypoxic. She was given duonebs+solumedrol and admitted for further evaluation. She states nebulizer has helped with respiratory symptoms. - Related Data Allergies/Adverse Reactions: Allergies Allergy/AdvReac Type Severity Reaction Status Date / Time codeine Allergy Nausea Verified 10/10/20 18:22 Home Medications: Home Meds Aspirin 81 mg PO DAILY 05/14/18 [History] Losartan [Cozaar] 50 mg PO DAILY 05/14/18 [History] Albuterol Sulfate [Albuterol Sulfate Hfa] 2 puff IH ASDIRECTED PRN 07/09/18 [History] Albuterol/Ipratropium [DuoNeb 3.0-0.5 MG/3 ML] 3 ml NEB TID PRN 07/09/18 [History] Ascorbic Acid [Vitamin C] 1,000 mg PO DAILY 07/09/18 [History] Fluticasone/Umeclidin/Vilanter [Trelegy Ellipta 100-62.5-25] 1 each IH DAILY 07/09/18 [History] Melatonin 10 mg PO DAILY 07/09/18 [History] Past Medical History HEENT History: Reports: Impaired Vision Cardiovascular History: Reports: Hypertension Respiratory History: Reports: COPD Other Respiratory History: does not wear O2 at home Musculoskeletal History: Reports: Arthritis Other Musculoskeletal History: in thumb - Infectious Disease History Infectious Disease History: Reports: Chicken Pox, Measles - Past Surgical History HEENT Surgical History: Reports: Naso-Sinus Surgery, Tonsillectomy Respiratory Surgical History: Reports: None Female Surgical History: Reports: Other (See Below) Other Female Surgeries/Procedures: Right groin and labia surgery Jun, 2019 Social & Family History - Family History Family Medical History: No Pertinent Family History - Tobacco Use Tobacco Use Status *Q: Former Tobacco User Years of Tobacco use: 40 Used Tobacco, but Quit: Yes Month/Year Tobacco Last Used: april 2018 - Caffeine Use Caffeine Use: Reports: Soda - Recreational Drug Use Recreational Drug Use: No - Living Situation & Occupation Living situation: Reports: , with Spouse Occupation: Unemployed H&P Review of Systems - Review of Systems: Review Of Systems: Comprehensive ROS is negative, except as noted in HPI. Exam - Exam Exam: See Below - Vital Signs Vital Signs: Last Vital Signs Temp 98.2 F 10/10/20 14:43 Pulse 127 H 10/10/20 17:21 Resp 22 H 10/10/20 17:21 BP 156/87 H 10/10/20 17:21 Pulse Ox 90 L 10/10/20 17:21 Weight: 179 lb 14.4 oz - Exam Quality Assessment: Supplemental Oxygen General: Alert, Oriented HEENT: EOMI, Nares Patent, Normal Nasal Septum Neck: Supple Lungs: Decreased Breath Sounds, Wheezing Cardiovascular: Regular Rate, Regular Rhythm, Normal S1, Normal S2 GI/Abdominal Exam: Soft, Non-Tender Extremities: Normal Inspection Skin: Warm, Dry, Intact Neurological: Cranial Nerves Intact Neuro Extensive - Mental Status: Alert, Oriented x3, Normal Mood/Affect Psychiatric: Alert, Normal Affect, Normal Mood - Discharge Data Discharge Date: 10/14/20 Discharge Disposition: Home, Self-Care 01 Condition: Good - Referral to Home Health Primary Care Physician: Mel Haynes NP - Patient Instructions Diet: Usual Diet as Tolerated Activity: As Tolerated Other/Special Instructions: Activity and diet are as tolerated. Continue wearing oxygen at all times between 2 and 4 L as necessary. Continue taking medications as listed at time of discharge. Encourage every 4 to 6-hour nebulizer treatments. Increase oxygen flow rate with activity. Follow-up with primary care physician within 1 to 2 weeks time. Follow-up with pulmonology on October 29. If you experience any signs or symptoms that warranted this admission please do not hesitate to call your Primary care provider or present to emergency department for an immediate evaluation. - Discharge Plan *PRESCRIPTION DRUG MONITORING PROGRAM REVIEWED*: Not Applicable *COPY OF PRESCRIPTION DRUG MONITORING REPORT IN PATIENT MICHELLE: Not Applicable Prescriptions/Med Rec: Citalopram [Citalopram HBr] 20 mg PO DAILY #20 tablet guaiFENesin [Mucinex] 1,200 mg PO Q12HR 30 Days tbmp.12hr predniSONE See Taper PO .TAPER 25 Days tab Home Medications: Home Meds Aspirin 81 mg PO DAILY 05/14/18 [History] Losartan [Cozaar] 25 mg PO DAILY 05/14/18 [History] Albuterol Sulfate [Albuterol Sulfate Hfa] 2 puff IH ASDIRECTED PRN 07/09/18 [History] Albuterol/Ipratropium [DuoNeb 3.0-0.5 MG/3 ML] 3 ml NEB TID PRN 07/09/18 [History] Ascorbic Acid [Vitamin C] 1,000 mg PO DAILY 07/09/18 [History] Fluticasone/Umeclidin/Vilanter [Trelegy Ellipta 100-62.5-25] 1 each IH DAILY 07/09/18 [History] traZODone 50 mg PO DAILY 10/10/20 [History] Roflumilast [Daliresp] 500 mcg PO DAILY 10/11/20 [History] Citalopram [Citalopram HBr] 20 mg PO DAILY #20 tablet 10/14/20 [Rx] guaiFENesin [Mucinex] 1,200 mg PO Q12HR 30 Days tbmp.12hr 10/14/20 [Rx] predniSONE See Taper PO .TAPER 25 Days tab 10/14/20 [Rx] Patient Handouts: Chronic Obstructive Pulmonary Disease Referrals: Hermann Boogie NP [Ordering Only Provider] - 10/29/20 10:30 am (This appt is in [facility]. New Address: [address] [place] [address] ) Mel Haynes NP [Primary Care Provider] - - Discharge Summary/Plan Comment DC Time >30 min.: Yes Total # of Minutes for Discharge Time: 45 minutes - General Info Date of Service: 10/14/20 Admission Dx/Problem (Free Text: Admission Diagnosis/Problem Admission Diagnosis/Problem acute on chronic hypoxic respiratory failure in the setting of acute COPD exacerbation. Subjective Update: No acute events overnight. No new specific nursing concerns. Patient states that she feels better today and feels as if she can walk further today. Still feels a little jittery and a little anxious. Denies any chest pressure, chest pain or pleurisy. No constitutional symptoms. Minimal mucus production with chronic cough. - Patient Data Vitals - Most Recent: Last Vital Signs Temp 97.9 F 10/14/20 05:28 Pulse 105 H 10/14/20 05:28 Resp 18 10/14/20 05:28 BP 146/84 H 10/14/20 05:28 Pulse Ox 92 L 10/14/20 05:32 Weight - Most Recent: 176 lb 8 oz I&O - Last 24 hours: Intake & Output 10/13/20 10/14/20 10/14/20 22:59 06:59 14:59 Intake Total 940 1600 Output Total 1500 2300 Balance -560 -700 Med Orders - Current: Current Medications Acetaminophen (Acetaminophen 325 Mg Tab) 650 mg PO Q4H PRN PRN Reason: Pain (Mild 1-3)/fever Last Admin: 10/12/20 11:52 Dose: 650 mg Documented by: Albuterol/Ipratropium (Albuterol/Ipratropium 3.0-0.5 Mg/3 Ml Neb Soln) 3 ml NEB Q4HRRT [facility] Last Admin: 10/14/20 05:32 Dose: 3 ml Documented by: Aspirin (Aspirin 81 Mg Tab.Ec) 81 mg PO DAILY [facility] Last Admin: 10/13/20 09:11 Dose: 81 mg Documented by: Benzonatate (Benzonatate 100 Mg Cap) 100 mg PO Q8H PRN PRN Reason: Cough Citalopram Hydrobromide (Citalopram 20 Mg Tab) 20 mg PO DAILY [facility] Last Admin: 10/13/20 09:11 Dose: 20 mg Documented by: Enoxaparin Sodium (Enoxaparin 40 Mg/0.4 Ml Syringe) 40 mg SUBCUT DAILY [facility] Last Admin: 10/13/20 09:11 Dose: 40 mg Documented by: Guaifenesin/Phenylephrine HCl (Guaifenesin/Dextromethorphan 100-10 Mg/5 Ml Soln 5 Ml Cup) 5 ml PO Q4H PRN PRN Reason: Cough Levofloxacin (Levofloxacin 500 Mg Tab) 500 mg PO Q24H [facility] Stop: 10/14/20 18:31 Last Admin: 10/13/20 18:31 Dose: 500 mg Documented by: Losartan Potassium (Losartan 25 Mg Tab) 25 mg PO DAILY [facility] Last Admin: 10/13/20 09:11 Dose: 25 mg Documented by: Methylprednisolone Sodium Succinate (Methylprednisolone Sodium Succinate 40 Mg/1 Ml Sdv) 40 mg IVPUSH Q8H [facility] Last Admin: 10/14/20 05:28 Dose: 40 mg Documented by: Roflumilast [ Daliresp] 500 Mcg Tablet Own Med 0 mcg PO DAILY [facility] Last Admin: 10/13/20 09:21 Dose: 500 mcg Documented by: Ondansetron HCl (Ondansetron 4 Mg/2 Ml Sdv) 4 mg IV Q4H PRN PRN Reason: Nausea/Vomiting Trazodone HCl (Trazodone 50 Mg Tab) 50 mg PO BEDTIME [facility] Last Admin: 10/13/20 20:40 Dose: 50 mg Documented by: Discontinued Medications Albuterol/Ipratropium (Albuterol/Ipratropium 3.0-0.5 Mg/3 Ml Neb Soln) 3 ml NEB ONETIME ONE Stop: 10/10/20 14:45 Last Admin: 10/10/20 15:20 Dose: 3 ml Documented by: Albuterol/Ipratropium (Albuterol/Ipratropium 3.0-0.5 Mg/3 Ml Neb Soln) 3 ml NEB ONETIME ONE Stop: 10/10/20 16:12 Last Admin: 10/10/20 16:23 Dose: 3 ml Documented by: Albuterol/Ipratropium (Albuterol/Ipratropium 3.0-0.5 Mg/3 Ml Neb Soln) 3 ml NEB QID [facility] Last Admin: 10/10/20 20:23 Dose: 3 ml Documented by: Albuterol/Ipratropium (Albuterol/Ipratropium 3.0-0.5 Mg/3 Ml Neb Soln) 3 ml NEB QIDRT [facility] Last Admin: 10/13/20 05:47 Dose: 3 ml Documented by: Sodium Chloride (Normal Saline) 1,000 mls @ 100 mls/hr IV ASDIRECTED [facility] Last Admin: 10/11/20 06:12 Dose: 100 mls/hr Documented by: Lactated Ringer's (Ringers, Lactated) 500 mls @ 250 mls/hr IV .BOLUS ONE Stop: 10/10/20 21:37 Last Admin: 10/10/20 20:10 Dose: 250 mls/hr Documented by: Dextrose/Water (Dextrose 5% In Water) 1,000 mls @ 125 mls/hr IV ASDIRECTED [facility] Stop: 10/11/20 17:00 Last Admin: 10/11/20 09:25 Dose: 75 mls/hr Documented by: Dextrose/Water (Dextrose 5% In Water) 1,000 mls @ 150 mls/hr IV ASDIRECTED [facility] Stop: 10/11/20 17:15 Levofloxacin (Levofloxacin 750 Mg Tab) 750 mg PO Q24H [facility] Last Admin: 10/11/20 18:36 Dose: 750 mg Documented by: Levofloxacin (Levofloxacin 500 Mg Tab) 500 mg PO Q24H [facility] Stop: 10/12/20 18:31 Last Admin: 10/12/20 12:05 Dose: Not Given Documented by: Methylprednisolone Sodium Succinate (Methylprednisolone Sodium Succinate 125 Mg/2 Ml Sdv) 125 mg IVPUSH ONETIME ONE Stop: 10/10/20 14:45 Last Admin: 10/10/20 15:52 Dose: 125 mg Documented by: Prednisone (Prednisone 20 Mg Tab) 60 mg PO WITHBREAKFAST [facility] Last Admin: 10/12/20 06:46 Dose: 60 mg Documented by: Sodium Chloride (Sodium Chloride 0.9% 10 Ml Syringe) 10 ml FLUSH ASDIRECTED PRN PRN Reason: Keep Vein Open Last Admin: 10/10/20 15:53 Dose: 10 ml Documented by: Trazodone HCl (Trazodone 50 Mg Tab) 50 mg PO BEDTIME PRN PRN Reason: Sleep Last Admin: 10/10/20 22:33 Dose: 50 mg Documented by: Trazodone HCl (Trazodone 50 Mg Tab) 50 mg PO BEDTIME [facility] Trazodone HCl (Trazodone 50 Mg Tab) 50 mg PO ONETIME PRN PRN Reason: Sleep Last Admin: 10/11/20 21:18 Dose: 50 mg Documented by: Trazodone HCl (Trazodone 50 Mg Tab) 50 mg PO ONETIME ONE Stop: 10/12/20 20:27 Last Admin: 10/12/20 20:39 Dose: 50 mg Documented by: - Exam Quality Assessment: Reports: Supplemental Oxygen General: Reports: Alert, Cooperative, No Acute Distress Lungs: Reports: Clear to Auscultation, Normal Respiratory Effort. Denies: Crackles, Rales, Rhonchi, Wheezing Cardiovascular: Reports: Regular Rate, Regular Rhythm GI/Abdominal Exam: Normal Bowel Sounds, Soft, Non-Tender Extremities: Normal Inspection Skin: Reports: Warm, Dry Neurological: Reports: No New Focal Deficit
[2020-10-14] MEDS: Enoxaparin 40 MG/0.4 ML Syringe SUBCUT SCH (09:35)
[2020-10-14] MEDS: Losartan 25 MG Tab PO SCH (09:36)
[2020-10-14] MEDS: Citalopram 20 MG Tab PO SCH (09:36)
[2020-10-14] MEDS: Aspirin 81 MG Tab.EC PO SCH (09:36)
[2020-10-14] MEDS: ROFLUMILAST 500 MCG PO SCH (09:36)
[2020-10-14 12:12] VITALS: BP 154/80; PULSE 100
== END 2020-10-14 12:15 | disposition home or self-care (01) | DRG 189 ==
LOC: JD.ED 14:21 → JD.MS 17:52
PROVIDERS: ADMIT Hospitalist; ATTEND Hospitalist
DX: J96.21 Acute and chronic respiratory failure with hypoxia (principal); R09.02 Hypoxemia; J44.1 Chronic obstructive pulmonary disease with (acute) exacerbation; E87.1 Hypo-osmolality and hyponatremia; I10 Essential (primary) hypertension; G47.00 Insomnia, unspecified; Z99.81 Dependence on supplemental oxygen; E86.1 Hypovolemia; E87.8 Other disorders of electrolyte and fluid balance, not elsewhere classified; D64.9 Anemia, unspecified; F41.9 Anxiety disorder, unspecified; F32.9 Major depressive disorder, single episode, unspecified; H54.7 Unspecified visual loss; M19.90 Unspecified osteoarthritis, unspecified site; Z88.5 Allergy status to narcotic agent; Z79.82 Long term (current) use of aspirin; Z79.899 Other long term (current) drug therapy; Z90.89 Acquired absence of other organs; Z86.19 Personal history of other infectious and parasitic diseases; Z87.891 Personal history of nicotine dependence; Z20.822 Contact with and (suspected) exposure to COVID-19; I27.20 Pulmonary hypertension, unspecified
CPT/HCPCS: 36415; 36600; 71045; 80053; 82803; 83605; 84484; 85025; 86140; 87040 ×2; 93005; 94640 ×2; 96374; 99285; J2930; U0002; 80048; 84295; 85027; 93010; 94667; 94668; 94761; 99222; 99231; 99232; 99239; 99284; A9270-GY; J1650; J2920; J7030; J7060; J7120; J7512; J7620-GY

== ENCOUNTER 2020-12-14 16:40 | Emergency (ER) | payer MEDICARE, OTHER ==
[2020-12-14 17:14] VITALS: BP 166/73
--- NOTE | 2020-12-14 17:28 | EDM.PDOC ---
<Charmaine Steele V - Last Filed: 12/14/20 23:34> ED HPI GENERAL MEDICAL PROBLEM - General Chief Complaint: Respiratory Problem Stated Complaint: SOB Time Seen by Provider: 12/14/20 17:11 Source of Information: Reports: Patient, RN Notes Reviewed History Limitations: Reports: No Limitations - History of Present Illness INITIAL COMMENTS - FREE TEXT/NARRATIVE: Patient is a 65-year-old female who presents to the ER for evaluation of her worsening shortness of breath. Patient does have COPD and is oxygen dependent. Patient states she is on about 2 L nasal cannula but has been using 3 L via nasal cannula for the last week or so. States that she has had increased cough with sputum production, of a yellowish-gonzalez sputum. She is not having any fevers or chills, nausea or vomiting or diarrhea. Patient states that she had COVID-19 last year in October 2019. She recently got a flu shot last week for ongoing health management. Patient's primary care provider is Mel Haynes. - Related Data Allergies Allergy/AdvReac Type Severity Reaction Status Date / Time codeine AdvReac Nausea Verified 12/14/20 17:14 Home Meds: Home Meds Aspirin 81 mg PO DAILY 05/14/18 [History] Losartan [Cozaar] 25 mg PO DAILY 05/14/18 [History] Albuterol Sulfate [Albuterol Sulfate Hfa] 2 puff IH ASDIRECTED PRN 07/09/18 [History] Albuterol/Ipratropium [DuoNeb 3.0-0.5 MG/3 ML] 3 ml NEB TID PRN 07/09/18 [History] Ascorbic Acid [Vitamin C] 1,000 mg PO DAILY 07/09/18 [History] Fluticasone/Umeclidin/Vilanter [Trelegy Ellipta 100-62.5-25] 1 each IH DAILY 07/09/18 [History] traZODone 50 mg PO DAILY 10/10/20 [History] Roflumilast [Daliresp] 500 mcg PO DAILY 10/11/20 [History] Citalopram [Citalopram HBr] 20 mg PO DAILY #20 tablet 10/14/20 [Rx] guaiFENesin [Mucinex] 1,200 mg PO Q12HR 30 Days tbmp.12hr 10/14/20 [Rx] predniSONE See Taper PO .TAPER 25 Days tab 10/14/20 [Rx] levoFLOXacin [Levofloxacin] 500 mg PO DAILY #6 tablet 12/14/20 [Rx] predniSONE 20 mg PO ASDIRECTED #15 tab 12/14/20 [Rx] levoFLOXacin [Levaquin] 750 mg PO DAILY #7 tab 12/15/20 [Rx] Past Medical History HEENT History: Reports: Impaired Vision Cardiovascular History: Reports: Hypertension Respiratory History: Reports: COPD Other Respiratory History: does not wear O2 at home 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: Musculoskeletal History: Reports: Arthritis Other Musculoskeletal History: in thumb Psychiatric History: Reports: Anxiety - Infectious Disease History Infectious Disease History: Reports: Chicken Pox, Measles, Novel Coronavirus (oct 2019) - Past Surgical History HEENT Surgical History: Reports: Naso-Sinus Surgery, Tonsillectomy Respiratory Surgical History: Reports: None Female Surgical History: Reports: Other (See Below) Other Female Surgeries/Procedures: Right groin and labia surgery Jun, 2019 Social & Family History - Family History Family Medical History: No Pertinent Family History - Caffeine Use Caffeine Use: Reports: Soda - Living Situation & Occupation Living situation: Reports: , with Spouse Occupation: Unemployed ED ROS GENERAL - Review of Systems Review Of Systems: Comprehensive ROS is negative, except as noted in HPI. ED EXAM, GENERAL - Physical Exam Exam: See Below Exam Limited By: No Limitations General Appearance: Alert, WD/WN, No Apparent Distress Respiratory/Chest: No Respiratory Distress, Lungs Clear, No Accessory Muscle Use, Chest Non-Tender, Decreased Breath Sounds (bilaterally) Cardiovascular: Normal Peripheral Pulses, Regular Rate, Rhythm, No Edema GI/Abdominal: Normal Bowel Sounds, Soft, Non-Tender, No Distention, No Mass Extremities: Normal Inspection, Normal Capillary Refill Neurological: Alert, Oriented, Normal Cognition, No Motor/Sensory Deficits Psychiatric: Normal Affect, Normal Mood Skin Exam: Warm, Dry, Intact, Normal Color, No Rash #1 Interpretation EKG Date: 12/14/20 Time: 16:53 Rhythm: Other (sinus tach) Rate (Beats/Min): 113 [place]: Normal P-Wave: Present QRS: Normal ST-T: Normal QT: Normal EKG Interpretation Comments: No obvious ischemia or acute ST changes noted, reviewed by myself and Dr. Ramirez. #2 Interpretation EKG Date: 12/14/20 Time: 22:27 Rhythm: Other (sinus tach) Rate (Beats/Min): 116 [place]: Normal P-Wave: Present QRS: Normal ST-T: Normal QT: Normal Comparison: No Change EKG Interpretation Comments: No obvious ischemia or acute ST changes noted, reviewed by myself and Dr. De La Garza. There are some PACs noted by Dr. De La Garza. These were also apparent in the patient's initial EKG. Course - Re-Assessments/Exams Free Text/Narrative Re-Assessment/Exam: 12/14/20 17:27 Patient presents to the ER for evaluation of her increased shortness of breath. A Covid screen was obtained at the time of triage, we will go ahead and do a chest x-ray, get some basic labs as well for further evaluation. This very well could be an exacerbation of her COPD as the patient's not had any fever or lethargy or other [id number] symptoms. 12/14/20 18:43 Patient's labs have resulted, patient's white count is elevated at 13.98 with 80% neutrophils. CMP is fairly unremarkable, but the patient CRP is quite elevated at 21.6. Patient's COVID-19 and flu screen were negative. Chest x-ray has been read as a patchy increased density within the right lung base, minimal area of pneumonia is possible. With the elevated white count and chest x-ray findings we will go ahead and treat her for pneumonia. Since the patient has COPD and is oxygen dependent we will treat her with Levaquin first dose to be IV in the ER, then we will send also a prescription for oral [facility] to [facility], along with a prescription for prednisone for ongoing management. 12/14/20 20:21 Patient's heart rate has been steadily tachycardic since being in the ER, and it does worsen when she gets up and moves around much at all. She is around 03/10/2017 at rest, but does shoot up to 130 with any sort of activity. O2 sats are roughly 91% on about 4 L nasal cannula. I did discuss the patient's clinical course with Dr. De La Garza and he does recommend checking a D-dimer to rule out possibility of PE, and giving her fluid bolus to see if this helps. I have ordered these at this time for ongoing management. 12/14/20 20:50 Patient's D-dimer was slightly elevated at 0.68. I did go over the risks and benefits of performing CT angio to rule in or rule out pulmonary embolus, the patient decided to go forward with the test at this time. Patient also did discuss this with her daughter who is a nurse and she also would like the CT to be done. Patient is feeling a little bit better when she is sitting still however when she moves at all she becomes very winded very easily. 12/14/20 22:06 2 patient's continued tachycardia heart rate is now into the 140s to 150s. Dr. De La Garza did recommend a repeat EKG, and this has been ordered. I will also do a Xopenex neb with the patient to see if this helps relieve some of her symptoms. I did discuss the patient's course again with Dr. De La Garza and he does agree the patient could likely need hospital admission. He did overlook the patient's CT, he does not see any sign of a PE, but does see a bilateral basilar pneumonia. Still awaiting official radiology read however. 12/14/20 23:[address] has returned, there is no sign of a PE. There is findings of bronchopneumonia, mild cardiomegaly, indeterminate right hilar adenopathy and moderate emphysema appreciated. Patient is still somewhat tachycardic, and slightly hypoxic on 4 L she is satting around 89 to 90%. States she is feeling better after the Xopenex neb. For tonight's purposes I just do not feel comfortable sending her home with her clinical situation the way it is and I have discussed her case again with Dr. De La Garza and he will attend her care overnight. I will order Xopenex nebs every 4 as needed for ongoing management. Departure - Departure Disposition: Home, Self-Care 01 Clinical Impression: Pneumonia Qualifiers: Pneumonia type: due to unspecified organism Laterality: right Lung location: lower lobe of lung Qualified Code(s): J18.9 - Pneumonia, unspecified organism - Discharge Information Prescriptions: levoFLOXacin [Levaquin] 750 mg PO DAILY #7 tab levoFLOXacin [Levofloxacin] 500 mg PO DAILY #6 tablet predniSONE 20 mg PO ASDIRECTED #15 tab Referrals: Mel Haynes, DRY ROOM ATTENDANT [Primary Care Provider] - Forms: ED Department Discharge Sepsis Event Note (ED) - Evaluation Sepsis Screening Result: Possible Sepsis Risk <Harjit De La Garza - Last Filed: 12/15/20 07:01> Course - Vital Signs Last Recorded V/S: Last Vital Signs Temp 37.1 C 12/14/20 17:11 Pulse 113 H 12/14/20 17:11 Resp 26 H 12/14/20 17:11 BP 166/73 H 12/14/20 17:11 Pulse Ox 87 L 12/15/20 00:03 - Orders/Labs/Meds Orders: Active Orders 24 hr Category Date Time Status Oxygen Therapy, ED [RC] ASDIRECTED Care 12/14/20 23:35 Active Peripheral IV Care [RC] . DIRECTED Care 12/14/20 17:12 Active RT Aerosol Therapy [RC] ASDIRECTED Care 12/14/20 22:06 Active Ang Chest [CT] Stat Exams 12/14/20 20:49 Taken Sodium Chloride 0.9% [Normal Saline] 100 ml Med 12/14/20 21:15 Active IV ASDIRECTED Sodium Chloride 0.9% [Saline Flush] Med 12/14/20 17:12 Active 10 ml FLUSH ASDIRECTED PRN levalbuterol HCL [Xopenex] Med 12/14/20 23:35 Active 1.25 mg NEB Q4HRRT PRN Peripheral IV Insertion Adult [OM.PC] Routine Oth 12/14/20 17:12 Ordered Medication Orders Sodium Chloride (Normal Saline) 100 mls @ 60 mls/min IV ASDIRECTED PERCY Last Admin: 12/14/20 21:42 Dose: 60 mls/min Documented by: JAN Levalbuterol HCl (Levalbuterol Hcl 1.25 Mg/3 Ml Neb) 1.25 mg NEB Q4HRRT PRN PRN Reason: Shortness of Breath Last Admin: 12/15/20 00:02 Dose: 1.25 mg Documented by: ROSA MARIA Sodium Chloride (Sodium Chloride 0.9% 10 Ml Syringe) 10 ml FLUSH ASDIRECTED PRN PRN Reason: Keep Vein Open Last Admin: 12/14/20 21:42 Dose: 10 ml Documented by: Admin: 12/14/20 18:01 Dose: 10 ml Documented by: JENNIFER Labs: Laboratory Tests 10/18/21 10/18/21 10/18/21 Range/Units 17:05 17:25 17:25 WBC 13.98 H (3.98-10.04) K/mm3 RBC 3.59 L (3.98-5.22) M/mm3 Hgb 10.0 L (11.2-15.7) gm/dl Hct 32.1 L (34.1-44.9) % MCV 89.4 (79.4-94.8) fl MCH 27.9 (25.6-32.2) pg MCHC 31.2 L (32.2-35.5) g/dl RDW Std Deviation 47.2 H (36.4-46.3) fL Plt Count 337 D (182-369) K/mm3 MPV 8.5 L (9.4-12.3) fl Neut % (Auto) 80.7 H (34.0-71.1) % Lymph % (Auto) 7.0 L (19.3-51.7) % [place] % (Auto) 11.0 (4.7-12.5) % Eos % (Auto) 0.6 L (0.7-5.8) Baso % (Auto) 0.4 (0.1-1.2) % Neut # (Auto) 11.27 H (1.56-6.13) K/mm3 Lymph # (Auto) 0.98 L (1.18-3.74) K/mm3 [place] # (Auto) 1.54 H (0.24-0.36) K/mm3 Eos # (Auto) 0.09 (0.04-0.36) K/mm3 Baso # (Auto) 0.06 (0.01-0.08) K/mm3 Manual Slide Review D-Dimer, Quantitative (0.19-0.50) mg/L Sodium (136-145) mEq/L Potassium (3.5-5.1) mEq/L Chloride (98-107) mEq/L Carbon Dioxide (21-32) mEq/L Anion Gap (5-15) BUN (7-18) mg/dL Creatinine (0.55-1.02) mg/dL Est Cr Clr Drug Dosing mL/min Estimated GFR (MDRD) (>60) mL/min BUN/Creatinine Ratio (14-18) Glucose (70-99) mg/dL Calcium (8.5-10.1) mg/dL Magnesium (1.8-2.4) mg/dL Total Bilirubin (0.2-1.0) mg/dL AST (15-37) U/L ALT (14-59) U/L Alkaline Phosphatase (46-116) U/L C-Reactive Protein 21.6 H* (<1.0) mg/dL Total Protein (6.4-8.2) g/dl Albumin (3.4-5.0) g/dl Globulin gm/dL Albumin/Globulin Ratio (1-2) SARS-CoV-2 RNA (RADHA) Negative (NEGATIVE) 12/14/20 12/14/20 Range/Units 17:25 17:25 WBC (3.98-10.04) K/mm3 RBC (3.98-5.22) M/mm3 Hgb (11.2-15.7) gm/dl Hct (34.1-44.9) % MCV (79.4-94.8) fl MCH (25.6-32.2) pg MCHC (32.2-35.5) g/dl RDW Std Deviation (36.4-46.3) fL Plt Count (182-369) K/mm3 MPV (9.4-12.3) fl Neut % (Auto) (34.0-71.1) % Lymph % (Auto) (19.3-51.7) % [place] % (Auto) (4.7-12.5) % Eos % (Auto) (0.7-5.8) Baso % (Auto) (0.1-1.2) % Neut # (Auto) (1.56-6.13) K/mm3 Lymph # (Auto) (1.18-3.74) K/mm3 [place] # (Auto) (0.24-0.36) K/mm3 Eos # (Auto) (0.04-0.36) K/mm3 Baso # (Auto) (0.01-0.08) K/mm3 Manual Slide Review D-Dimer, Quantitative 0.68 H (0.19-0.50) mg/L Sodium 137 (136-145) mEq/L Potassium 3.5 (3.5-5.1) mEq/L Chloride 97 L (98-107) mEq/L Carbon Dioxide 33 H (21-32) mEq/L Anion Gap 10.5 (5-15) BUN 5 L (7-18) mg/dL Creatinine 0.6 (0.55-1.02) mg/dL Est Cr Clr Drug Dosing 101.08 mL/min Estimated GFR (MDRD) > 60 (>60) mL/min BUN/Creatinine Ratio 8.3 L (14-18) Glucose 123 H (70-99) mg/dL Calcium 9.1 (8.5-10.1) mg/dL Magnesium 1.7 L (1.8-2.4) mg/dL Total Bilirubin 0.4 (0.2-1.0) mg/dL AST 26 (15-37) U/L ALT 27 (14-59) U/L Alkaline Phosphatase 76 (46-116) U/L C-Reactive Protein (<1.0) mg/dL Total Protein 7.1 (6.4-8.2) g/dl Albumin 2.9 L (3.4-5.0) g/dl Globulin 4.2 gm/dL Albumin/Globulin Ratio 0.7 L (1-2) SARS-CoV-2 RNA (RADHA) (NEGATIVE) Meds: Medications Generic Name Dose Route Start Last Admin Trade Name Freq PRN Reason Stop Dose Admin Sodium Chloride 100 mls @ 60 mls/min 12/14/20 21:15 12/14/20 21:42 Normal Saline IV 60 mls/min ASDIRECTED PERCY Administration Levalbuterol HCl 1.25 mg 12/14/20 23:35 12/15/20 00:02 Levalbuterol Hcl 1.25 Mg/3 Ml Neb NEB 1.25 mg Q4HRRT PRN Administration Shortness of Breath Sodium Chloride 10 ml 12/14/20 17:12 12/14/20 21:42 Sodium Chloride 0.9% 10 Ml Syringe FLUSH 10 ml ASDIRECTED PRN Administration Keep Vein Open Discontinued Medications Generic Name Dose Route Start Last Admin Trade Name Freq PRN Reason Stop Dose Admin Levofloxacin/Dextrose 500 mg/ 100 mls @ 100 mls/hr 12/14/20 18:41 12/14/20 19:19 Premix IV 12/14/20 19:40 100 mls/hr ONETIME ONE Administration Sodium Chloride 1,000 mls @ 999 mls/hr 12/14/20 20:17 12/14/20 20:54 Normal Saline IV 12/14/20 21:17 999 mls/hr ONETIME ONE Administration Iopamidol 100 ml 12/14/20 21:04 12/14/20 21:42 Iopamidol 755 Mg/Ml 100 Ml Bottle IVPUSH 12/14/20 21:05 100 ml ONETIME ONE Administration Levalbuterol HCl 1.25 mg 12/14/20 22:06 12/14/20 22:20 Levalbuterol Hcl 1.25 Mg/3 Ml Neb NEB 12/14/20 22:07 1.25 mg ONETIME ONE Administration Methylprednisolone Sodium Succinate 125 mg 12/14/20 18:46 12/14/20 19:19 Methylprednisolone Sodium Succinate 125 Mg/2 Ml Sdv IVPUSH 12/14/20 18:47 125 mg ONETIME ONE Administration Sodium Chloride 10 ml 12/14/20 21:04 12/14/20 22:17 Sodium Chloride 0.9% 10 Ml Sdv FLUSH 12/14/20 21:05 10 ml ONETIME ONE Administration - Re-Assessments/Exams Free Text/Narrative Re-Assessment/Exam: 12/15/20 07:00 Patient was observed over the night by myself after receiving a signout. Laboratory studies reviewed as well as patient's medical history. Vital signs significantly improved patient saturating between 93 and 96% on 4 L nasal cannula. Heart rate improved nicely to the low 100s. I went talk to the patient and she is extremely comfortable going home. I feel this is reasonable given the clinical picture at this point. Patient has a PSI score of 65. Outpatient management is reasonable at this point we will discharge her on Levaquin and give her appropriate return precautions. Departure - Departure Time of Disposition: 07:00 Sepsis Event Note (ED) - Focused Exam Vital Signs: Vital Signs Pulse Ox 12/15/20 00:03 87 L 12/14/20 22:06 87 L
--- NOTE | 2020-12-14 17:48 | CR ---
Chest: Frontal view of the chest was obtained. Comparison: Prior chest x-ray of 10/10/20. Heart size is mildly enlarged. Upper mediastinum is normal. Patchy increased density is seen within the right lung base which is more prominent than on prior exam. Difficult to exclude mild pulmonary vascular congestion. Bony structures show nothing acute. Impression: 1. Patchy increased density within the right lung base. Minimal area of pneumonia is possible. 2. Heart is mildly enlarged with mild questionable pulmonary vascular congestion. Diagnostic code #3
[2020-12-14] MEDS: Sodium Chloride 0.9% 10 ML Syringe FLUSH PRN ×2 (18:01→21:42)
[2020-12-14] MEDS ORDERED: Levofloxacin/Dextrose 5%-Water 500 MG in Premix Bag 1 BAG IV ONE (18:41)
[2020-12-14] MEDS ORDERED: methylPREDNISolone Sodium Succinate 125 MG/2 ML SDV IVPUSH ONE (18:46)
[2020-12-14] MEDS ORDERED: Sodium Chloride 0.9% 1,000 ML IV ONE (20:17)
[2020-12-14] MEDS ORDERED: Iopamidol 755 Mg/ML 100 ML Bottle IVPUSH ONE (21:04)
[2020-12-14] MEDS ORDERED: Sodium Chloride 0.9% 10 ML SDV FLUSH ONE (21:04)
[2020-12-14] MEDS ORDERED: Sodium Chloride 0.9% 100 ML IV SCH (21:15)
[2020-12-14] MEDS ORDERED: Levalbuterol HCl 1.25 MG/3 ML Neb NEB ONE (22:06)
[2020-12-14] MEDS ORDERED: Levalbuterol HCl 1.25 MG/3 ML Neb NEB PRN (23:35)
[2020-12-15 07:09] VITALS: PULSE 106
--- NOTE | 2020-12-15 07:13 | CT ---
CT chest Technique: Multiple axial sections through the chest were obtained. Intravenous contrast was utilized. Study has been performed as a pulmonary angiogram protocol. Comparison: No prior chest CT study is available, previous chest x-ray performed earlier on the same day (5:10 PM). Findings: Pulmonary arteries are well opacified. No filling defects are seen to indicate pulmonary embolism. Small lymph nodes are seen within both hilar regions, slightly more prominent on the right side which are most likely incidental. Thoracic aorta shows atherosclerotic calcification with no aneurysm. No axillary adenopathy is appreciated. Mild cardiomegaly with no pericardial thickening is seen. Visualized upper abdominal structures show a small cyst within the right lobe of the liver measuring 9 mm. Lung window settings were reviewed which show diffuse emphysematous change. Focal consolidation within a portion of the right middle lobe is seen. Mild areas of density are noted within the posterior left lower lobe. Mild density is seen within the posterior right lower lobe which could be due to scarring as well as possible infection. Bone window settings were reviewed which show slight degenerative change within the spine. No acute osseous abnormality is appreciated. Impression: 1. No findings of pulmonary embolism. 2. Emphysematous change is seen. 3. Patchy density within the right middle lobe as well as within both lower lobes. Difficult to exclude pneumonia. Please correlate with the patient's symptoms. 4. Slight adenopathy within both hilar regions most likely incidental. Diagnostic code #3 I agree with preliminary report from [facility], finalized on 12/14/20, 11:55 PM CDT, code 1
== END 2020-12-15 07:18 | disposition home or self-care (01) ==
LOC: JD.ED 16:40
DX: J18.9 Pneumonia, unspecified organism (principal); I10 Essential (primary) hypertension; J44.9 Chronic obstructive pulmonary disease, unspecified; M19.90 Unspecified osteoarthritis, unspecified site; R00.0 Tachycardia, unspecified; Z88.5 Allergy status to narcotic agent; Z79.82 Long term (current) use of aspirin; Z79.899 Other long term (current) drug therapy; Z20.822 Contact with and (suspected) exposure to COVID-19
CPT/HCPCS: 36415; 71045; 71275; 80053; 83735; 85025; 85379; 86140; 87804; 93005; 94640; 96365; 96375; 99285; J1956; J2930; J7030; J7612; Q9967; U0002

== ENCOUNTER 2021-08-19 10:20 | Day surgery (SDC) | payer MEDICARE, OTHER ==
[~2021-08-19 10:20] MED LIST: Cefuroxime 10 MG/ML SYRINGE EYERT SCH; Lidocaine 1% PF 2 ML SDV INJECT SCH; Pilocarpine 4% Ophth Soln 15 ML Bot EYERT SCH
[2021-08-19] MEDS: Polymyxin B/Trimethoprim 10 ML Bottle EYERT SCH ×3 (11:49→13:14)
[2021-08-19] MEDS: Brimonidine 0.2% Ophth Soln 5 ML Bottle EYERT SCH ×3 (11:53→13:14)
[2021-08-19] MEDS: Phenylephrine 2.5% Ophth Soln 2 ML Bot EYERT SCH ×5 (11:57→12:53)
[2021-08-19] MEDS: Tropicamide 1% Ophth Soln 15 ML Bottle EYERT SCH ×4 (12:00→12:29)
[2021-08-19] MEDS: Tetracaine HCl/PF 0.5% 4 ML Bottle EYEBOTH SCH ×4 (12:35→13:03)
[2021-08-19 13:31] VITALS: BP 114/80; PULSE 80
== END 2021-08-19 13:25 | disposition home or self-care (01) ==
LOC: JD.SDS 10:20
PROVIDERS: ATTEND Ophthalmology
DX: H25.813 Combined forms of age-related cataract, bilateral (principal); F41.9 Anxiety disorder, unspecified; J44.9 Chronic obstructive pulmonary disease, unspecified; E78.00 Pure hypercholesterolemia, unspecified; I10 Essential (primary) hypertension; Z98.890 Other specified postprocedural states; Z88.5 Allergy status to narcotic agent; Z79.899 Other long term (current) drug therapy
CPT/HCPCS: 66984; J0697; C1780

== ENCOUNTER 2021-09-16 11:17 | Day surgery (SDC) | payer MEDICARE, OTHER ==
[2021-09-16] MEDS: Polymyxin B/Trimethoprim 10 ML Bottle EYELF SCH ×5 (10:46→12:32)
[2021-09-16] MEDS: Brimonidine 0.2% Ophth Soln 5 ML Bottle EYELF SCH ×5 (10:52→12:32)
[2021-09-16] MEDS: Phenylephrine 2.5% Ophth Soln 2 ML Bot EYELF SCH ×5 (10:56→12:10)
[2021-09-16] MEDS: Tropicamide 1% Ophth Soln 15 ML Bottle EYELF SCH ×4 (11:02→11:52)
[~2021-09-16 11:17] MED LIST changes: +Cefuroxime 10 MG/ML SYRINGE EYELF SCH; -Cefuroxime 10 MG/ML SYRINGE EYERT SCH; -Pilocarpine 4% Ophth Soln 15 ML Bot EYERT SCH
[2021-09-16] MEDS: Tetracaine HCl/PF 0.5% 4 ML Bottle EYEBOTH SCH ×4 (12:02→12:17)
[2021-09-16] MEDS: Pilocarpine 4% Ophth Soln 15 ML Bot EYELF SCH ×3 (12:29→12:32)
[2021-09-16 12:45] VITALS: BP 146/72; PULSE 96
== END 2021-09-16 12:45 | disposition home or self-care (01) ==
LOC: JD.SDS 11:17
PROVIDERS: ATTEND Ophthalmology
DX: H25.812 Combined forms of age-related cataract, left eye (principal); H35.3131 Nonexudative age-related macular degeneration, bilateral, early dry stage; H35.363 Drusen (degenerative) of macula, bilateral; H35.033 Hypertensive retinopathy, bilateral; H02.831 Dermatochalasis of right upper eyelid; H02.834 Dermatochalasis of left upper eyelid; H52.31 Anisometropia; J44.9 Chronic obstructive pulmonary disease, unspecified; E78.00 Pure hypercholesterolemia, unspecified; F32.A Depression, unspecified; F41.9 Anxiety disorder, unspecified; I10 Essential (primary) hypertension; Z98.890 Other specified postprocedural states; Z79.899 Other long term (current) drug therapy; Z88.5 Allergy status to narcotic agent; Z96.1 Presence of intraocular lens
CPT/HCPCS: 66984; J0697; C1780